=== PATIENT | female | born 2005 | race Caucasian/White ===

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

== ENCOUNTER → 2023-01-02 | Outpatient (CLI) | payer MEDICAID, SELFPAY | END | disposition home or self-care (01) | LOC: LABSPEC 11:22 | PROVIDERS: PCP Pediatrics; Referring Provider Registered Nurse; Visit Provider Registered Nurse | DX: N89.8 Other specified noninflammatory disorders of vagina (principal) | CPT/HCPCS: 87070; 87077; 87186; 87205 ==

== ENCOUNTER 2023-04-24 16:00 | Outpatient (RCR) | payer MEDICAID, SELFPAY ==
--- NOTE | 2023-01-05 07:25 | HP.PTEVAL ---
Patient's Visit Information Visit Information Visit Information: TARIK FERREIRA is a 17 year old F referred to Physical Therapy by Dr. Levon Wadsworth DO with a diagnosis of displaced R pilon fx of R tibia, DOS: 12/15/22. Date of Evaluation: 01/03/23 Physical Therapist: Selwyn Valencia DPT Visit Plan Frequency: 2x /Week Duration: 8 weeks Plan: Start with ankle ROM, initial AROM adding in DF stretching. BAPS. Pt. is NWBing until cleared by physician. 2. Once ROM improve initiate light banded strengthening (non painful), hip and core strengthening. 3. Once cleared by physician for WBing add in CKC exercises as tolerated, progressing with gait mechanics. Subjective Subjective: Pt. is here today for her initial evaluation with diagnosis of displaced R pilon fx of R tibia. Pt. reports she was jumping on a trampoline with her friend and landed funny resulting in a leg fracture. She initially had an external fixator until swelling went down then proceeded with the internal fixation. DOS: 12/15/22. Pt. arrives today with use of crutches and is NWB on her RLE. Pt. does this well. She reports having some pain, but not much currently. She has not been doing much exercises, but has been mostly elevating and resting. She is in school and is working at [employer] but is currently off work. School is mostly online. Pt. denies changes in color of her leg, but has tingling and some numbness on top of her foot. She is sleeping well with her leg elevated. Pt. has light compression on as well. pt. is hopeful to reduce her pain and get back to all recreational and work activities without limitations. Pain R ankle: Pain Intensity (Out of 10): 1 Pain Intensity Range: 0 and 4 Objective Objective: POSTURE: Pt. is NWBing on her RLE, but has good posture with use of crutches. PALPATION: Pt. has steri strips in place. good healing incision. Pt. has negative homans sign. Pt. has no signs of infection. NEURO: Pt. has fairly normal sensation, she does have some decreased sensation at the top of her foot. ROM: R knee: full motion no pain. R ankle: AROM: DF: 0 deg, PF 28deg, INV 2DEG, EVR 1deg. PROM: DF 5deg, PF 31deg, INV 4deg, EVR 4deg. MMT: LLE 5/5 throughout; RLE: ankle did not test; knee; ext 4+/5, flexion 4+/5; hip: flexion 4/5, adb 4/5, ext 4/5. GAIT: Pt. ambulates well with crutches and NWBing on her RLE. Balance/Special Test Scores Lower Extremity Functional Score: 10 Goals Goal 1:: LTG: Pt. to be I with HEP. Goal Time Frame: 6-8 Weeks Goal 2:: STG: Pt. to have increased R ankle ROM symmetrical to R side allowing for progression to WBing once cleared. Goal Time Frame: 2-4 Weeks Goal 3:: LTG: Pt. to have increased RLE strength to 5/5 throughout. Goal Time Frame: 4-6 Weeks Goal 4:: LTG: Pt. to be able to walk with normal gait pattern with use of crutches. Goal Time Frame: 4-6 Weeks Goal 5:: LTG: pt. to be able to ambulate without AD with normal gait pattern without increase in symptoms. Goal Time Frame: 6-8 Weeks Goal 6:: LTG: pt. to negotiate 1 flight of stairs with1 HR with normal recipocal pattern without pain. Goal Time Frame: 6-8 Weeks Rehabilitation Potential Physical Therapy Diagnosis: Pt. has signs and symptoms consistent with displaced R pilon fx of R tibia. Pt. has marked hypomobility, weakness, difficulty walking and increased pain. Pt. would benefit from PT to work on the above limitations progressing back to all functional mobility and work related activities without limitations. Rehabilitation Potential: Excellent Anticipated Interventions Patient/Client Instruction: Educate patient on: Condition, Plan of Care, Risk Factors and Benefits of Fitness Program For the Purpose of:: To improve decision making, To facilitate caregiver knowledge, To improve self management, To prevent re-injury and To improve ability to perform tasks related to life management Therapeutic Exercise to Include: Strength training, Power training, Balance training, Coordination, Postural training, Flexibilty training, Gait and locomotor training, Neuromotor development, Passive ROM and Active ROM For the Purpose of:: To decrease pain, To increase ROM, To improve nutrient delivery to tissue, To increase oxygenation perfusion, To improve muscle performance and motor function, To improve ability to perform ADL's, To increase tolerance to activity/condition/position, To improve performance and independence with ADL's, To decrease level of supervision to perform tasks, To improve ability of physical actions for home/community/work/leisure, To improve gait and locomotor functions, To decrease soft tissue restriction and To increase flexibility/ROM IF ES: Yes Cryotherapy (ice pack, ice massage): Yes For the Purpose of:: To decrease pain, To increase ROM, To improve nutrient delivery to tissue and To increase oxygenation perfusion Text: Thank you for the opportunity to evaluate your patient. For Medicare and Medicare HMO plans, please review the plan of care and approve it. It will need to be FAXED BACK to us at [phone] for Medicare purposes. For Medicare only, by signing this I certify the plan of care. Please let me know if there are questions or concerns regarding this plan of care. Physician Signature: Date:
--- NOTE | 2023-02-07 08:33 | HP.PTREVAL_ITS ---
Re-Evaluation Intro: Dr. Levon Wadsworth, DO, It has been my pleasure to treat TARIK FERREIRA over the last 8 visits for displaced R pilon fx of R tibia, DOS: 12/15/22. Please see the progress note below for an update on the physical therapy plan of care! Subjective Subjective: Pt. reports overall doing well. Pt. is now currently 50% WBing on her RLE. She is using crutches and her boot without much pain. She reports going back to work, but mostly sitting and is able to ice and elevate her RLE at times. No pain currently. HEP compliant. Objective Objective/Function: ROM: Pt. has improved ROM: R ankle DF 10deg, PF 41deg, INV 10deg, EVR 8deg. Pt. has tightness with ankle DF, but no pain. MMT: R ankle: DF 5-/5, PF 4+/5, EVR 4/5, INV 4/5. No pain with testing today. GAIT: Pt. has good ambulation with crutches and is doing better with tolerating WBing with CAM boot. Incisions look great, no major swelling today. Starting next week she can be 75% WBing and 100% the following week. Pt. to remain in boot with CKC exercises until follow up with physician. Cont. to work on DF ROM and ankle strengthening, RLE as able. Plan Plan Plan: Starting next week she can be 75% WBing and 100% the following week. Pt. to remain in boot with CKC exercises until follow up with physician. Cont. to work on DF ROM and ankle strengthening, RLE as able. Balance/Gait/Functional tests Balance/Special Test Scores Lower Extremity Functional Score: 28 Goals Goals Goal 1:: LTG: Pt. to be I with HEP. Goal Time Frame: 6-8 Weeks Goal Progress: Progressing Goal 2:: STG: Pt. to have increased R ankle ROM symmetrical to R side allowing for progression to WBing once cleared. Goal Time Frame: 2-4 Weeks Goal Progress: Progressing Goal 3:: LTG: Pt. to have increased RLE strength to 5/5 throughout. Goal Time Frame: 4-6 Weeks Goal Progress: Progressing Goal 4:: LTG: Pt. to be able to walk with normal gait pattern with use of crutches. Goal Time Frame: 4-6 Weeks Goal Progress: Goal Met Goal 5:: LTG: pt. to be able to ambulate without AD with normal gait pattern without increase in symptoms. Goal Time Frame: 6-8 Weeks Goal Progress: Progressing Goal 6:: LTG: pt. to negotiate 1 flight of stairs with1 HR with normal recipocal pattern without pain. Goal Time Frame: 6-8 Weeks Goal Progress: Progressing Anticipated Interventions Anticipated Interventions Patient/Client Instruction: Educate patient on: Condition, Plan of Care, Risk Factors and Benefits of Fitness Program For the Purpose of:: To improve decision making, To facilitate caregiver knowledge, To improve self management, To prevent re-injury and To improve ability to perform tasks related to life management Therapeutic Exercise to Include: Strength training, Power training, Balance training, Coordination, Postural training, Flexibilty training, Gait and locomotor training, Neuromotor development, Passive ROM and Active ROM For the Purpose of:: To decrease pain, To increase ROM, To improve nutrient delivery to tissue, To increase oxygenation perfusion, To improve muscle perf ormance and motor function, To improve ability to perform ADL's, To increase tolerance to activity/condition/position, To improve performance and independence with ADL's, To decrease level of supervision to perform tasks, To improve ability of physical actions for home/community/work/leisure, To improve gait and locomotor functions, To decrease soft tissue restriction and To increase flexibility/ROM IF ES: Yes Cryotherapy (ice pack, ice massage): Yes For the Purpose of:: To decrease pain, To increase ROM, To improve nutrient delivery to tissue and To increase oxygenation perfusion Re-Evaluation Ending Re-evaluation ending: Please do not hesitate to contact me at [phone] by phone or if you have questions or concerns regarding this new plan of care! Sincerely, Selwyn Valencia DPT
--- NOTE | 2023-03-27 16:03 | HP.PTREVAL_ITS ---
Re-Evaluation Intro: Dr. Levon Wadsworth, DO, It has been my pleasure to treat TARIK FERREIRA over the last 19 visits for displaced R pilon fx of R tibia, DOS: 12/15/22. Please see the progress note below for an update on the physical therapy plan of care! Subjective Subjective: Pt. reports having increased pain at the medial aspect of her R distal LE. Along post tib muscle belly and tendon. She reports having increased pain after slipping ~ 2 weeks ago. It did get better than has started to get worse again. Objective Objective/Function: ROM: L ankle: Pt. has decent R ankle ROM, slight decrease in DF, and EVR, rest is fairly normal. MMT: PF 5-/5, DF 5-/5, EVR 5-/5, INV 4+/5 mild increase nW. PALPATION: pt. pretty tender along R post tib muscle and tendon. Less no along medial tibia. GAIT: Pt. has an antalgic pattern noted, during push off/pre swing phase of RLE. This did improve after manual and stretching. Her symptoms seem to be more musculature in nature. I would like to progress GS stretching, manual/foam rolling to this same area. Possibly DN to same region. Once symptoms have reduced progress back to strengthening as tolerated. Plan Plan Plan: I would like to progress GS stretching, manual/foam rolling to this same area. Possibly DN to same region. Once symptoms have reduced progress back to strengthening as tolerated. Recerting for x2 week for 4 more weeks. Balance/Gait/Functional tests Balance/Special Test Scores Lower Extremity Functional Score: 23 Goals Goals Goal 1:: LTG: Pt. to be I with HEP. Goal Time Frame: 6-8 Weeks Goal Progress: Progressing Goal 2:: STG: Pt. to have increased R ankle ROM symmetrical to R side allowing for progression to WBing once cleared. Goal Time Frame: 2-4 Weeks Goal Progress: Progressing Goal 3:: LTG: Pt. to have increased RLE strength to 5/5 throughout. Goal Time Frame: 4-6 Weeks Goal Progress: Progressing Goal 4:: LTG: Pt. to be able to walk with normal gait pattern with use of crutches. Goal Time Frame: 4-6 Weeks Goal Progress: Progressing Goal 5:: LTG: pt. to be able to ambulate without AD with normal gait pattern without increase in symptoms. Goal Time Frame: 6-8 Weeks Goal Progress: Progressing Goal 6:: LTG: pt. to negotiate 1 flight of stairs with1 HR with normal recipocal pattern without pain. Goal Time Frame: 6-8 Weeks Goal Progress: Progressing Anticipated Interventions Anticipated Interventions Patient/Client Instruction: Educate patient on: Condition, Plan of Care, Risk Factors and Benefits of Fitness Program For the Purpose of:: To improve decision making, To facilitate caregiver knowledge, To improve self management, To prevent re-injury and To improve ability to perform tasks related to life management Therapeutic Exercise to Include: Strength training, Power training, Balance training, Coordination, Postural training, Flexibilty training, Gait and lo comotor training, Neuromotor development, Passive ROM and Active ROM For the Purpose of:: To decrease pain, To increase ROM, To improve nutrient delivery to tissue, To increase oxygenation perfusion, To improve muscle performance and motor function, To improve ability to perform ADL's, To increase tolerance to activity/condition/position, To improve performance and independ ence with ADL's, To decrease level of supervision to perform tasks, To improve ability of physical actions for home/community/work/leisure, To improve gait and locomotor functions, To decrease soft tissue restriction and To increase flexibility/ROM IF ES: Yes Cryotherapy (ice pack, ice massage): Yes For the Purpose of:: To decrease pain, To increase ROM, To improve nutrient delivery to tissue and To increase oxygenation perfusion Re-Evaluation Ending Re-evaluation ending: Please do not hesitate to contact me at [phone] by phone or if you have questions or concerns regarding this new plan of care! Sincerely, Selwyn Valencia DPT
== END 2023-04-24 19:00 | disposition home or self-care (01) ==
LOC: PT 16:00
PROVIDERS: PCP Pediatrics; Referring Provider Student in an Organized Health Care Education/Training Program; Visit Provider Student in an Organized Health Care Education/Training Program
DX: S82.871D Displaced pilon fracture of right tibia, subsequent encounter for closed fracture with routine healing (principal)
CPT/HCPCS: 97014; 97110; 97140; 97161; 97164; G0283

== ENCOUNTER → 2023-08-23 | Outpatient (CLI) | payer MEDICAID, SELFPAY ==
--- NOTE | 2023-08-23 13:11 | MRI_ITS ---
STUDY: MRI RIGHT ANKLE WITHOUT CONTRAST REASON FOR EXAM: Female, 17 years old. Right tibial tendon pain. Medial pain. TECHNIQUE: Standardized fat and water weighted pulse sequences were obtained in all 3 orthogonal planes. Marked metallic artifact in the distal tibia obscuring any diagnostic information above the tibiotalar joint. COMPARISON: Intraoperative digital documentation views of 12/15/2022 showing extensive plate and screw fixation of the distal tibia. FINDINGS: Extremely limited study due to metallic artifact. No diagnostic information of the distal tibia or fibula due to metallic artifact. Posterior tibialis tendinosis with tenosynovitis (axial series 4 images 15-21). Normal flexor digitorum longus tendon. Normal flexor hallucis longus tendon. Normal peroneus longus and brevis tendons. Normal tibialis anterior tendon. Normal extensor hallucis longus tendon. Normal extensor digitorum longus tendons. Normal Achilles tendon and teno-osseous insertion. Normal plantar fascia. Normal plantar calcaneal tubercles. Normal intrinsic muscles of the rearfoot. Normal distal tibiofibular syndesmotic ligamentous complex. Normal lateral ligamentous complex. Normal subtalar ligaments and sinus tarsi. Normal deltoid ligamentous complexes. Normal plantar calcaneonavicular (spring) ligament. Normal tibiotalar articulation. Normal talar dome. Normal subtalar articulations. Normal talonavicular articulation. Normal calcaneocuboid articulation. Normal navicular-cuneiform articulations. MRI/Lower Ext Joint Only (Routine) IMPRESSION: Posterior tibialis tendinosis with tenosynovitis. No other abnormality identified. Electronically Signed: Driss Vance MD at 11:24 EDT ,
== END | disposition home or self-care (01) ==
PROVIDERS: Referring Provider Student in an Organized Health Care Education/Training Program; Visit Provider Student in an Organized Health Care Education/Training Program
DX: S82.871D Displaced pilon fracture of right tibia, subsequent encounter for closed fracture with routine healing (principal)
CPT/HCPCS: 73721

== ENCOUNTER 2023-10-25 20:35 | Emergency (ER) | payer MEDICAID, SELFPAY ==
[2023-10-25] VITALS (7 sets, daily range): BP systolic 83–118; BP diastolic 55–71; PULSE 69–111; RESP 16–18; TEMP 36.6–36.7; O2SAT 98–100; BMI 17.3
--- NOTE | 2023-10-25 20:58 | ED.VIS.FEGU ---
HPI HPI - Female History of Present Illness Chief Complaint: Vag Bleeding Detail of Chief Complaint: Vaginal bleeding Informant: patient Narrative Narrative: Patient presents to the emergency department complaint of vaginal bleeding that started 2 months ago. Initially it was more like spotting. Heavier over the last several days and in the last 3 hours she has been going through more than a pad an hour. She denies feeling lightheaded or dizzy. She does describe some pelvic cramping. Patient is on Nexplanon. She does not think she is and she is never been . She called her TECHNICAL SUPPORT ASSISTANT who advised her to come to the ER and get evaluated. [facility] Medical History (Updated 10/25/23 @ 23:[address] Angel Montesinos, DO) Anxiety Uses crutches Restless legs Former smoker Leg cramps History of edema Home Medications ?Medication ?Instructions ?Recorded ?Last Taken ?Type etonogestrel 68 mg subdermal 68 mg subdermal DAILY 12/06/22 Unknown History implant (Nexplanon) sertraline 50 mg tablet 50 mg PO DAILY 10/25/23 Unknown History Allergy/AdvReac Type Severity Reaction Status Date / Time No Known Allergies Allergy Verified 10/25/23 20:37 Family History Mother Thyroid disorder Surgical History Status post ORIF of fracture of ankle (~12/15/22) H/O reduction of closed fracture (~12/07/22) S/P eye surgery S/P nasal surgery S/P tonsillectomy and adenoidectomy Social History household members: family housing: house number of children: 0 current occupational status: employed 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 [employer] Smoking Status: Current every day smoker tobacco type: cigarettes alcohol intake: never substance use type: does not use caffeine: Yes what type of physical activity do you participate in: other details: track and cheerleading seatbelt use: always do you feel safe at home: Yes additional social history: BF- Taz ROS ROS ED Review of Systems ROS Unobtainable: other Constitutional Constitutional ED: Reports lethargy; Denies chills, fever(s), sweats or weight loss Eyes Eyes: Denies blurry vision, change in vision or diplopia ENT ENT ED: Denies rhinorrhea or sore throat Cardiovascular Cardiovascular: Denies chest pain, orthopnea or racing heartbeat Respiratory/Chest Respiratory/Chest: Denies cough, dyspnea, dyspnea on exertion, orthopnea or sputum Gastrointestinal Gastrointestinal: Denies abdominal pain, diarrhea, nausea or vomiting Genitourinary Genitourinary ED: Reports vaginal bleeding; Denies dysuria, hematuria or urinary frequency Musculoskeletal Musculoskeletal: Denies arthralgias, back pain, myalgias or neck pain Integumentary Denies abscess, Abrasions or rash Neurologic Neurologic: Denies headache(s) or weakness Psychiatric Psychiatric: Denies anxiety, depression or suicidal thoughts Endocrine Endocrinology: Denies polydipsia, polyphagia or polyuria Hematologic/Lymphatic Hematologic/Lymphatic: Denies easy bleeding, easy bruising or lymphadenopathy Allergic/Immunologic Allergic/Immunologic ED: Denies mouth swelling, tongue swelling or urticaria EXAM Physical Exam Const Vital Signs: 10/25/23 20:35 10/25/23 21:04 10/25/23 21:09 Temperature 98.1 F Temperature Source Temporal Pulse Rate 94 Pulse Rate [Lying] 84 Pulse Rate [Sitting (for 1 minute prior to obtaining)] 75 Pulse Rate [Standing (for 1 minute prior to obtaining)] 111 H Respiratory Rate 16 Blood Pressure 118/71 110/66 Blood Pressure [Lying] 106/70 Blood Pressure [Sitting (for 1 minute prior to obtaining)] 103/62 Blood Pressure [Standing (for 1 minute prior to obtaining)] 83/55 L Blood Pressure Mean 86 80 Blood Pressure Mean [Lying] 82 Blood Pressure Mean [Sitting (for 1 minute prior to obtaining)] 75 Blood Pressure Mean [Standing (for 1 minute prior to obtaining)] 64 Pulse Ox 99 Oxygen Delivery Method Room Air 10/25/23 22:58 10/25/23 22:59 10/25/23 23:00 Temperature Temperature Source Pulse Rate 75 81 90 Pulse Rate [Lying] Pulse Rate [Sitting (for 1 minute prior to obtaining)] Pulse Rate [Standing (for 1 minute prior to obtaining)] Respiratory Rate 16 16 Blood Pressure 103/67 95/66 92/65 Blood Pressure [Lying] Blood Pressure [Sitting (for 1 minute prior to obtaining)] Blood Pressure [Standing (for 1 minute prior to obtaining)] Blood Pressure Mean 79 75 74 Blood Pressure Mean [Lying] Blood Pressure Mean [Sitting (for 1 minute prior to obtaining)] Blood Pressure Mean [Standing (for 1 minute prior to obtaining)] Pulse Ox 98 Oxygen Delivery Method Positive well nourished and well developed General Appearance ED: well developed and NAD HEENT Reports TM's clear and moist mucous membranes normocephalic and atraumatic; Negative for trauma or tenderness Tympanic Membrane ED: Yes TM's clear Eyes PERRL and EOMs intact bilaterally General Eye ED: Negative for pale conjunctiva or scleral icterus Neck no lymphadenopathy, supple and no JVD General: Negative for tenderness Chest Wall inspection of chest normal and palpation of chest normal Chest: Negative for tenderness Resp normal respiratory effort and clear to auscultation bilaterally Effort and Inspection: Negative for respiratory distress or pain with movement Auscultation: Negative for rhonchi, wheezes or diminished lung sounds Cardio regular rate, regular rhythm, S1 normal heart sound, S2 normal heart sound and no murmurs Peripheral Pulses: pulses 2+ throughout GI normal to inspection, nondistended, normoactive bowel sounds, soft to palpation, non-distended and no masses GI Narrative: Mild diffuse suprapubic tenderness on palpation. There is no rebound, rigidity, or pineal signs. No mass palpated. Speculum Exam - Vagina: vaginal bleeding Back/Spine no CVA tenderness and no thoracic nor lumbar tenderness Extremity normal to inspection General Extremety ED: Negative for edema General Extremity: Negative for edema Neuro oriented x3, CN's II-XII intact bilaterally, no sensory deficits noted and gait normal Sensorium / Orientation: awake, alert, oriented to person, oriented to place and oriented to time Motor Exam: strength 5/5 throughout and strength abnormal Psych mental status grossly normal Skin no rashes or lesions noted and no wounds MDM MDM MDM Narrative Medical decision making narrative: Patient presents with vaginal bleeding x 2 months. More heavy over the last 3 hours. IV line established. Type and screen ordered. CBC with differential obtained showed a white count of 10.5 with hemoglobin 14.4 platelet count of 252. hCG was negative. Orthostatic vital signs were performed and she did drop her pressure to 80 systolic when standing and she did feel lightheaded. She received a liter normal saline fluid bolus. I will order a second liter. I did do a pelvic exam and she had dried blood within the vaginal vault but no active bleeding. Case discussed with TECHNICAL SUPPORT ASSISTANT on-call Dr. Dover who recommended patient call their office to arrange close follow-up. Patient did receive a second liter of fluid and repeat orthostatics are currently negative. She is asymptomatic and looks well. Will discharge to home. Lab Data Attestation: I reviewed the patient's lab results. Labs: Laboratory Results - last 24 hr 10/25/23 10/25/23 20:55 21:55 WBC 10.5 RBC 4.75 Hgb 14.4 Hct 42.5 MCV 89.5 MCH 30.3 MCHC 33.9 RDW Std Deviation 37.7 RDW Coeff of Ursula 11.7 Plt Count 252 MPV 11.0 Immature Gran % (Auto) 0.400 Neut % (Auto) 72.6 H Lymph % (Auto) 20.1 [place] % (Auto) 5.8 Eos % (Auto) 0.5 Baso % (Auto) 0.6 Absolute Neuts (auto) 7.6 Absolute Lymphs (auto) 2.10 Nucleated RBC % 0 Serum , Qual NEGATIVE Urine Color Yellow Urine Clarity Clear Urine pH 7.0 Ur Specific Barnard 1.010 Urine Protein Negative Urine Glucose (UA) Normal Urine Ketones Negative Urine Occult Blood 250 H Urine Nitrite Negative Urine Bilirubin Negative Urine Urobilinogen Normal Ur Leukocyte Esterase Negative Urine RBC 0-5 SEEN Urine WBC 0 SEEN Ur Squamous Epith Cells 0 SEEN Urine Bacteria 0 SEEN Urine Mucus 0 SEEN Blood Type O POSITIVE Antibody Screen NEGATIVE Discharge Plan Triage Chief Complaint: Vag Bleeding ED Provider: Angel Montesinos Dx/Rx/DC Orders Clinical Impression: DUB (dysfunctional uterine bleeding) Instructions: ED Dysfunctional Uterine Bleeding Prescriptions: No Action Nexplanon 68 mg implant 68 mg subdermal DAILY sertraline 50 mg tablet 50 mg PO DAILY Primary Care Provider: Curry Acevedo Referrals: Curry Acevedo MD [Primary Care Provider] - Charla Abraham DO [Med Staff - Active Staff] - 1-2 Days if not improving Print Language: Luxembourgish Disposition Disposition: Home, Self Care
[2023-10-25] MEDS: 0.9% Normal Saline (1000mL) 1,000 ML 999 ML IV ×2 (21:03→22:00)
[2023-10-25 21:10] LABS: Absolute Neutrophil Count 7.6 X10^3/uL (2.0-7.7); Basophil# 0.06 X10^3/uL; Basophil% 0.6 % (0-1); Eosinophil# 0.05 X10^3/uL; Eosinophils% 0.5 % (0-5); Hematocrit 42.5 % (37-47); Hemoglobin 14.4 g/dL (12.0-15.0); Lymphocyte % 20.1 % (19-41); Mean Corp Hgb Conc 33.9 g/dL (32-36); Mean Corpuscular Hgb 30.3 pg (27.0-32.0); Mean Corpuscular Volume 89.5 fL (81-99); Monocyte# 0.61 X10^3/uL; Monocyte% 5.8 % (0-10); NRBC Flagged by Analyzer 0 % (0-5); Neutrophil % 72.6 % (47-70); Platelet Count 252 K/mm3 (150-450); RBC Distribution Width CV 11.7 % (11.6-14.6); RBC Distribution Width SD 37.7 fl (35.1-43.9); Red Blood Count 4.75 M/mm3 (4.2-5.4); White Blood Count 10.5 K/mm3 (4.4-11.0)
[2023-10-25 21:17] LABS: Internal QC Validated? YES +Cl - CLEAR BKGD; Pregnancy, Serum, hCG Quali. NEGATIVE Negative
[2023-10-25 22:09] LABS: Bacteria 0 SEEN /hpf (None Seen); Mucous, Urine 0 SEEN /hpf (<or=2+); White Blood Cells 0 SEEN /hpf (0-5)
[2023-10-25 22:17] LABS: Color, Urine Yellow (Yellow); Glucose, Dipstick Normal (Normal); Ketone-Dipstick Negative (Negative); Leukocyte Esterase-Dipstick Negative /ul (Negative); Nitrite-Dipstick Negative (Negative); Occult Blood-Urine 250 /ul (Negative); Protein-Dipstick Negative (Negative); Urine Bilirubin Dipstick Negative (Negative); Urine Clarity Clear (Clear); Urine Urobilinogen Normal (Normal)
[2023-10-25 22:28] LABS: Red Blood Cells-Urine 0-5 SEEN /hpf (0-5); Squamous Epithelial Cells - UA 0 SEEN /hpf (5-10)
== END 2023-10-25 23:16 | disposition home or self-care (01) ==
PROVIDERS: Emergency Provider Emergency Medicine; PCP Pediatrics; Visit Provider Emergency Medicine
DX: N93.8 Other specified abnormal uterine and vaginal bleeding (principal); F17.210 Nicotine dependence, cigarettes, uncomplicated
CPT/HCPCS: 81001; 84703; 85025; 86850; 86900; 86901; 96360; 96361; 99283; J7030; A4216

== ENCOUNTER → 2023-10-26 | Outpatient (CLI) | payer MEDICAID, SELFPAY ==
[2023-10-26 15:19] LABS: Absolute Lymphocyte Count 1.45 X10^3/uL (0.83-4.51); Absolute Neutrophil Count 5.4 X10^3/uL (2.0-7.7); Basophil# 0.06 X10^3/uL; Basophil% 0.8 % (0-1); Eosinophil# 0.09 X10^3/uL; Eosinophils% 1.2 % (0-5); Hematocrit 39.8 % (37-47); Hemoglobin 13.3 g/dL (12.0-15.0); Lymphocyte # 1.45 X10^3/ul (0.83-4.51); Lymphocyte % 19.6 % (19-41); Mean Corp Hgb Conc 33.4 g/dL (32-36); Mean Corpuscular Hgb 30.2 pg (27.0-32.0); Mean Corpuscular Volume 90.5 fL (81-99); Mean Platelet Vol. 11.1 fl (6.2-12.0); Monocyte# 0.35 X10^3/uL; Monocyte% 4.7 % (0-10); NRBC Flagged by Analyzer 0 % (0-5); Neutrophil # 5.41 X10^3/uL (2.7-7.7); Neutrophil % 73.4 % (47-70); Platelet Count 211 K/mm3 (150-450); RBC Distribution Width CV 11.8 % (11.6-14.6); White Blood Count 7.4 K/mm3 (4.4-11.0)
[2023-10-26 16:22] LABS: Thyroid Stim Hormone (TSH) 1.31 uIU/mL (0.358-3.74)
== END | disposition home or self-care (01) ==
LOC: LAB 14:45
PROVIDERS: PCP Pediatrics; Referring Provider Obstetrics & Gynecology; Visit Provider Obstetrics & Gynecology
DX: N93.9 Abnormal uterine and vaginal bleeding, unspecified (principal)
CPT/HCPCS: 36415; 84443; 85025

== ENCOUNTER 2024-03-15 13:38 | Emergency (ER) | payer OTHER, MEDICAID, SELFPAY ==
[2024-03-15 13:41] VITALS: BP 114/68; PULSE 88; RESP 18; TEMP 36.1; O2SAT 100; BMI 18.1
--- NOTE | 2024-03-15 14:13 | EDS_ITS ---
HPI History of Present Illness HPI Narrative: Patient presents with right ankle injury that occurred today. Patient states she slipped on the ice cube and twisted her ankle. Patient has a history of prior ankle fracture with ORIF. Patient states he felt like the screws were going to pop out of her ankle. Patient describes her pain as sharp and aching. Patient denies any paresthesias or weakness. Patient denies any head injury or loss of consciousness. Patient denies any other injuries. Chief Complaint: Lower Extremity Injury Informant: patient Occured/Mechanism Comment: Slipped on ice and twisted right ankle Onset/Context/Timing Onset: Today Context: Sudden Onset Timing: Continuous Quality of Pain: Sharp and Aching Location: Right ankle Worsened by: Movement Relieved by: Nothing Associated Symptoms Associated Symptoms: Negative for Parasthesia, Weakness or Loss of Funtion [facility] Medical History Anxiety Uses crutches Restless legs Former smoker Leg cramps History of edema Home Medications ?Medication ?Instructions ?Recorded ?Last Taken ?Type etonogestrel 68 mg subdermal 68 mg subdermal DAILY 12/06/22 Unknown History implant (Nexplanon) sertraline 50 mg tablet 50 mg PO DAILY 10/25/23 Unknown History Allergy/AdvReac Type Severity Reaction Status Date / Time No Known Allergies Allergy Verified 03/15/24 13:38 Family History Mother Thyroid disorder Surgical History Status post ORIF of fracture of ankle (~12/15/22) H/O reduction of closed fracture (~12/07/22) S/P eye surgery S/P nasal surgery S/P tonsillectomy and adenoidectomy Social History household members: family housing: house number of children: 0 current occupational status: employed 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 [employer] Smoking Status: Current every day smoker tobacco type: cigarettes alcohol intake: never substance use type: does not use caffeine: Yes what type of physical activity do you participate in: other details: track and cheerleading seatbelt use: always do you feel safe at home: Yes additional social history: BF- Taz ROS ROS ED Constitutional Constitutional ED: Denies chills or fever(s) Eyes Eyes: Denies blurry vision or change in vision ENT ENT ED: Denies rhinorrhea or sore throat Cardiovascular Cardiovascular: Denies chest pain or palpitations Respiratory/Chest Respiratory/Chest: Denies cough or dyspnea Gastrointestinal Gastrointestinal: Denies nausea or vomiting Genitourinary Genitourinary ED: Denies dysuria or hematuria Musculoskeletal Musculoskeletal: Reports back pain; Denies neck pain Integumentary Denies abscess or rash Neurologic Neurologic: Denies headache(s) or weakness Allergic/Immunologic Allergic/Immunologic ED: Denies mouth swelling or urticaria EXAM Physical Exam Const Vital Signs: 03/15/24 13:41 Temperature 96.9 F L Temperature Source Temporal Pulse Rate 88 Respiratory Rate 18 Blood Pressure 114/68 Blood Pressure Mean 83 Pulse Ox 100 Oxygen Delivery Method Room Air Positive well nourished and well developed General Appearance ED: well developed and NAD HEENT Reports moist mucous membranes Neck full ROM and supple Extremity Extremity Narrative: There is tenderness to palpation over the medial and lateral malleoli. There is no obvious deformity noted. There is some mild edema. Range of motion was limited in all motions of the right ankle secondary to pain. There is no tenderness over the fifth metatarsal. There is no tenderness over the proximal fibula. Neuro oriented x3, CN's II-XII intact bilaterally, moves all extremities and no sensory deficits noted Sensorium / Orientation: alert Motor Exam: strength 5/5 throughout Psych mental status grossly normal MDM MDM MDM Narrative Medical decision making narrative: Differential diagnosis includes fracture, contusion, and sprain. X-rays of the right ankle will be obtained to assess for fracture and contusion. Radiography Diagnostic Testing: X-rays of the right ankle were obtained. There are 3 views. On my independent interpretation, there is no acute fracture or dislocation. There is no widening of the ankle mortise. There is no displacement or fracture of the hardware. Radiologist also interpreted the x-rays and agrees. Treatment and Re-Evaluation Narrative: Patient was advised of her findings. Patient was instructed to ice and elevate the right ankle. 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 Patient was instructed to take Tylenol or ibuprofen as needed for pain. Patient was instructed return if worse in any way. Patient understood and was agreeable with the plan. All questions were answered. Discharge Plan Triage Chief Complaint: Lower Extremity Injury ED Provider: Carmelo Castillo Dx/Rx/DC Orders Clinical Impression: Right ankle sprain, Fall Instructions: ED Ankle Sprain (Adult) Prescriptions: No Action Nexplanon 68 mg implant 68 mg subdermal DAILY sertraline 50 mg tablet 50 mg PO DAILY Primary Care Provider: Curry Acevedo Referrals: Curry Acevedo MD [Primary Care Provider] - 5-7 Days Print Language: Maori Disposition Disposition: Home, Self Care
--- NOTE | 2024-03-15 15:12 | RAD_ITS ---
STUDY: X-RAY - RIGHT ANKLE REASON FOR EXAM: Female, 18 years old. Injury/Pain TECHNIQUE: 3 view(s) of the ankle. COMPARISON: 12/15/2022. FINDINGS: No acute abnormality. Satisfactory appearance of compression plate and screws across the medial and lateral surfaces of the distal tibia. No acute fracture lines are seen. No dislocations. Normal visualized fibula. Normal visualized talus and calcaneus. The visualized subtalar, talonavicular, calcaneocuboid and tarsal articulations are normal. The soft tissue structures are unremarkable. RAD/Ankle min 3 Views IMPRESSION: No acute fractures or dislocations. Electronically Signed: Jaguar Dacosta MD at 15:40 EDT ,
[2024-03-15 16:50] VITALS: BP 110/66; PULSE 84; RESP 16; TEMP 36.5; O2SAT 99
== END 2024-03-15 16:51 | disposition home or self-care (01) ==
PROVIDERS: Emergency Provider Emergency Medicine; PCP Pediatrics; Visit Provider Emergency Medicine
DX: S93.401A Sprain of unspecified ligament of right ankle, initial encounter (principal); F17.210 Nicotine dependence, cigarettes, uncomplicated; W18.49XA Other slipping, tripping and stumbling without falling, initial encounter; F41.9 Anxiety disorder, unspecified; Z79.899 Other long term (current) drug therapy
CPT/HCPCS: 73610; 99282

== ENCOUNTER 2025-04-09 20:23 | Emergency (ER) | payer SELFPAY ==
[2025-04-09 20:24] VITALS: BP 125/78; PULSE 95; RESP 16; TEMP 36.6; O2SAT 100; BMI 19.1
--- OUTSIDE RECORDS SUMMARY | 2025-04-09 20:38 | XMS RPT_ITS | CCD ---
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 distress. Appearance: She is not diaphoretic. HENT: Head: Normocephalic. Jaw: No trismus, tenderness, swelling or pain on movement. Mouth/Throat: Mouth: Mucous membranes are moist. Pharynx: Oropharynx is clear. Uvula midline. No pharyngeal swelling, oropharyngeal exudate, posterior oropharyngeal erythema or uvula swelling. Eyes: Conjunctiva/sclera: Conjunctivae normal. Pupils: Pupils are equal, round, and reactive to light. Cardiovascular: Rate and Rhythm: Normal rate and regular rhythm. Heart sounds: Normal heart sounds. Pulmonary: Effort: Pulmonary effort is normal. No tachypnea, accessory muscle usage or respiratory distress. Breath sounds: Normal breath sounds. No stridor. No wheezing, rhonchi or rales. Abdominal: General: There is no distension. Palpations: Abdomen is soft. Tenderness: There is no abdominal tenderness. There is no guarding or rebound. Musculoskeletal: Cervical back: Normal range of motion and neck supple. No edema, erythema, rigidity or tenderness. No pain with movement. Normal range of motion. Lymphadenopathy: Cervical: No cervical adenopathy. Skin: General: Skin is warm and dry. Comments: Oval salmon-colored lesion noted over thoracic area. Sporadic macular papular rash is noted on trunk a few rash noted on legs to highlighted area. Rash is blanching. Spares mucosal membrane. No adenopathy. Neurological: Mental Status: She is alert and oriented to person, place, and time. ASSESSMENT/PLAN: 1. Rash - ICD9: 782.1, ICD10: R21 Diagnosis rash. Suspicious of inverse pityriasis rosea. Patient was educated on supportive therapies. Patient will follow up with primary care provider as needed. Patient was instructed to immediately proceed to emergency room for any new, worsening, or symptoms lasting longer than anticipated. The patient's clinical p (more content not included)... Normal [facility] CNOVon 03-25-2024 CNOV Office Visit (PEDSWS) ---- SUGAR FERREIRA ([id number]) 1 F Date Time Provider Department 03/25/24 1:00 PM CURRY WORLEY PEDSWS During your visit today, we recorded the following information about you: Temperature Pulse Respiration Blood pressure 98 degrees 72/minute 20/minute 98/60 Weight Last Period 50.2 kg 02/19/24 Curry Worley MD 03/25/2024 2:32 PM Signed PEDIATRIC FOLLOW UP VISIT Sugar Fabrizio Ferreira is a 18 year old female who presents with anxiety, insomnia, and anhedonia for follow up visit accompanied by her self. Currently taking Sertraline 50 mg since 10/19. The medication is helping dramatically with apettitie, nausea, sleep, anxiety, restlessness. stopped meds about a month ago. (ran out) History was obtained from: patient Current symptoms: low energy, loss of interest, and anxiety Sleep continues to be a concern even when taking medication. getting 3-4 hours of sleep a night. Was waking at night as well ( but better on meds) tried melatonin-no help warm milk. antihistamines, no help no ETOH, no THC has limited screen time white noise mind has 17 tabs open- music, what if's counseling: looking for counselor. having trouble meeting schedule. (only has 1 day off a week from work or school) Severity of Symptoms: moderate Context: home, school, and work SH: living with Boyfriend in [place] now PAST MEDICAL HISTORY Diagnosis Date Allergic rhinitis Nasal bones, closed fracture PMH - PAST MEDICAL HISTORY OF 01/26/09 normal color vision ROS for medication side effects: Abdominal pain: no Appetite problems: no Drowsiness: no Sleep problems: no Headaches: no Depression: no Suicidal ideation: no Agitation: no Yvette: no Tremors: no Weight change: no ADDITIONAL CONCERNS: Right ankle injury- Surgical Services Asst is recommencing repeat surgery PHYSICAL EXAM: BP 98/60 Pulse 72 Temp 36.7 ?C (98 ?F) (Temporal Artery) Resp 20 Wt 50.2 kg (110 lb 10.7 oz) LMP 02/19/2024 (Approximate) BMI 19.30 kg/m? Blood pressure %shantel are not available for patients who are 18 years or older. General: Well developed, No acute distress, anxious and fidgety Neck: supple and no adenopathy Lungs: clear to auscultation bilaterally, good air exchange, no retractions Heart: Normal rate, regular rhythm, no murmur Abdomen: Soft, nontender, nondistended, no palpable organomegaly or masses, normal bowel sounds Skin: Normal color, texture and turgor. No rashes. ASSESSMENT AND PLAN: Encounter Diagnosis ICD-10-CM 1. MARIA DE JESUS (generalized anxiety disorder) F41.1 18 year old female with anxiety with some depressive symptoms without optimization of symptoms but improvement on medication that she was taking and without significant medication side effects. Based on PHQ-9 Score: 14 and interview, presentation is consistent with possible depression: -Continue current medications -Referred to psychology/behavior al health provider. MARIA DE JESUS-7: 18 - Continue current medication-restart Zoloft 50 mg daily. - Psychology referral for depression and anxiety I will add clonidine 0.1 mg as needed for sleep at nighttime follow up 1 month Once stabilized I did talk about transition to adult primary care MD Curtis Crews Adam P, MD 03/25/2024 1:47 PM Signed Pediatric Behavioral Health Providers - [facility] This list does not represent endorsement of any practice by [facility] Crisis hotline [phone] [place] [phone] [place] [phone] [place] [phone] [place] [phone] [place] [phone] [email or web address] Debbie Zao [place] [phone] [place] [phone] [place] [phone] https://Medical Cannabis Payment Solutionszaocommu Quantified Communicationsypartners.org/ [employer] [address] [facility] [phone] https://[employer] Media/ One [employer]y [place] [phone] [place] [phone] [email or web address]/ [facility] [address] [place] [phone] [email or web address] [facility] Multiple locations [phone] https://www.[email or web address] hospitala [email or web address]/ [facility] [place] [phone] [place] [phone] [place] [phone] [place] [phone] [email or web address] / [email or web address] [address] [facility] [phone] [place] [address] [email or web address] [facility] [place] [address] Elizabet Rodriguez, [place] [phone] [place] [address] Stephany Rodriguez, [place] [phone] Please contact your insurance company for covered behavioral health services and providers. You may also locate mental health providers in your area by using these websites: [email or web address]://www.psychol Practice [email or web address]/us/the rapists/ https://findtreatme nt.gov/ https://effectivech i (more content not included)... Normal [facility] CNOVon 10-12-2023 CNOV Office Visit (PEDSWS) ---- SUGAR FERREIRA ([id number]) 1 F Date Time Provider Department 10/12/23 3:00 PM CURRY WORLEY PEDSWS During your visit today, we recorded the following information about you: Temperature Pulse Respiration Blood pressure 99.2 degrees 88/minute 20/minute 100/60 Weight Height 48.9 kg 1.613 m Curry Worley MD 10/12/2023 5:15 PM Signed PEDIATRIC INITIAL VISIT HISTORY OF PRESENT ILLNESS: Sugar is a 17 year old female presenting with concerns regarding depressed mood and anxiety Developed sx since having leg surgery Last November- Broke tibia and needed internal fixation. Depression set in with inactivity History was obtained from: patient Is the patient currently in treatment? No. Future appointment scheduled: No- looking for a therapist. Recent changes or stressors at home or school? Yes She has felt this way for the past 10 months with depression. Anxiety may have been prior but worsened last 10 month She was taking Zoloft for anxiety in 2020 PSYCHIATRIC REVIEW OF SYMPTOMS: Depression: Increased irritability Sad mood or feeling empty Functionally impairing anhedonia appetite with mood changes Changes to sleeping pattern Excessive and inappropriate guilt Lowering of self esteem or self efficacy Diminished energy and impairing fatigue Worsening of the ability to concentrate or is increasingly indecisive Suicidal ideation/intent: None Increase in crying episodes Generalized Anxiety: Excessive worry Difficulty controlling worry Restless and fidgety due to anxiety Fatigued due to stress Trouble concentrating due to recurrent anxiety driven thoughts Muscle tension secondary to stress Sleep disturbance secondary to anxiety Separation Anxiety: Distress when from home or parents Worry about losing or harm befalling parents Trauma induced anxiety: Older brother passes away 2018- does not feel she processed it , younger brother had a car accident Panic Disorder: Endorses the following panic attack symptoms at work: tachycardia, palpitations, sweating , trembling, shaking, nausea and vomiting, dizzy/faint, and avoidant behavior Having somatic symptoms, Blurry vision, dizziness SLEEP: -increased sleeping SOCIAL HISTORY: Patient lives with boyfriend. 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 Yes, anxiety -Has the patient received prior out patient mental care? Yes, -Previous psychiatric medication trials: Yes, prozac not a good fit, zoloft was helpful last in 2019 -Has there been a history of significant or chronic self injury? No -Have there been any previous suicide attempts? Patient denies previous suicide attempts PERTINENT FAMILY HISTORY: FAMILY HISTORY Problem Relation Age of Onset Diabetes Maternal Grandmother maternal cousin- type I other (arrthymia) Maternal Grandmother 55 stents (smoker) Anxiety: Yes, , brother, dad, mom (not dx) Depression: Yes, Dad Schizophrenia: No ADD/ADHD: No ADDITIONAL CONCERNS: None MEDICAL HISTORY: PAST MEDICAL HISTORY Diagnosis Date Allergic rhinitis Nasal bones, closed fracture PMH - PAST MEDICAL HISTORY OF 01/26/09 normal color vision OBJECTIVE PHYSICAL EXAM: BP 100/60 Pulse 88 Temp 37.3 ?C (99.2 ?F) (Temporal Artery) Resp 20 Ht 161.3 cm (5' 3.5") Wt 48.9 kg (107 lb 11.2 oz) LMP 05/03/2019 BMI 18.78 kg/m? Blood pressure %shantel are not available for patients who are 18 years or older. General: Well developed, No acute distress Appearance: well dressed well groomed Behavior: agitated Speech: fluent and coherent Affect: anxious Neck: supple and no adenopathy Lungs: clear to auscultation bilaterally, good air exchange, no retractions Heart: Normal rate, regular rhythm, no murmur Abdomen: Soft, nontender, nondistended, no palpable organomegaly or masses, normal bowel sounds Skin: Normal color, texture and turgor. No rashes. Neuro: normal strength and tone, no gross motor deficits ASSESSMENT AND PLAN: Encounter Diagnosis ICD-10-CM 1. MARIA DE JESUS (generalized anxiety disorder) F41.1 2. Adjustment disorder with depressed mood F43.21 Based on PHQ-A Score: 17 (recommended cut off score is 11) and interview, presentation is consistent with diagnosis of depression: -Start pharmacotherapy as outlined -Referred to psychology/behavior al health provider -I gave a list of local resources for her to reach out to. . Based on MARIA DE JESUS-7 Score: 20 and interview, presentation is consistent with anxiety: -Plan as above . - Reviewed risks and benefits of medcations including black box warning - Patient to call if experiencing undesirable side eff (more content not included)... Normal [facility] SUGAR FERREIRA ([id number]) 1 F Date Time Provider Department 06/18/23 ROBERTO PALOMINO [facility] During your visit today, we recorded the following information about you: Roberto Palomino, SERA 06/18/2023 8:13 AM Signed Negative for COVID and flu Francy Loaiza LPN 06/18/2023 9:18 AM Signed Left message for patient to return call. MARLIN Fry Brandy 06/18/2023 2:25 PM Signed PATIENT CALLED BACK AND WAS RELAYED THE BELOW INFORMATION AND STATED UNDERSTANDING Chalo Gonzalez Allergies As of Date: 06/18/2023 Noted Allergy Reaction BEES 03/10/2008 12 - Shortness of Breath Comments: Immunotherapy x 3 years-- Dr. Kush Rivera (no allergy now) CATS 03/18/2008 9 - Itching DOGS 03/18/2008 9 - Itching DUST MITES 03/18/2008 SEASONAL ALLERGIES 05/19/2014 3 - Cough Comments: nasal congestion and rash at times from trees and grass Date Reviewed: 06/17/2023 Reviewed by: Simone Fabian APRN.CNP - Fully Assessed Reason for Visit: Results [95] Prescriptions as of 06/18/2023 - ondansetron orally disintegrating (ZOFRAN ODT) 4 mg disintegrating tablet Take 1 tablet by mouth every 8 hours as needed for nausea/vomiting. - COVID-19 antigen test ([facility] COVID-19 RAPID AT-HOME) kit 1 Each as directed. - albuterol HFA (PROVENTIL HFA, VENTOLIN HFA) 90 mcg/actuation inhaler INHALE 2 PUFFS BY MOUTH EVERY 6 HOURS NEEDED DIRECTED - triamcinolone acetonide (NASACORT) 55 mcg nasal inhaler Use 1 spray each nostril twice daily. - cetirizine (ZYRTEC) 10 mg tablet TAKE 1 TABLET BY MOUTH EVERY DAY - hydrocortisone 2.5 % ointment Apply 1 application to affected area twice daily. Use for only two days - etonogestrel (NEXPLANON) subdermal implant 68 mg 68 mg by SUBDERMAL route. Problem List As Of Date 06/18/2023 Noted Resolved Acute low back pain without sciatica [M54.50] 07/22/2016 Encounter Status:Closed by CHALO GILMAN on 06/18/23 [facility] CNOVon 06-17-2023 CNOV Office Visit (UCWSTR) ---- SUGAR FERREIRA ([id number]) 1 F Date Time Provider Department 06/17/23 12:15 PM SIMONE FABIAN During your visit today, we recorded the following information about you: Temperature Pulse Respiration Blood pressure 99.3 degrees 118/minute 16/minute 104/72 Weight 48.2 kg Simone Fabian APRN.CNP 06/17/2023 12:44 PM Signed Subjective HPI Patient presents to urgent care with chief complaint of fever and cough. Duration of symptoms 18 hrs. Associated symptoms with today's chief complaint are on and off headache, vomiting, muscle aches, fatigue, nonproductive cough, and fever. Patient stated symptoms started abruptly. Patient states they have used zlnv-yes-sjpmmuu medication with some success. Patient states significant other had similar signs and symptoms. Patient denies any pain at this time. Patient denies any visual changes, visual disturbance, shortness of breath, rash, exercise intolerance, pleuritic pain, productive cough, abdominal pain, nausea, vomiting, chest pain, or change in bowel or bladder habits. Denies chance of . Is not breast-feeding. Past medical history prescription medications allergies reviewed. .Patient presents with: Flu Like Symptoms: X 18 hr PAST MEDICAL HISTORY Diagnosis Date Allergic rhinitis Nasal bones, closed fracture PMH - PAST MEDICAL HISTORY OF 01/26/09 normal color vision PAST SURGICAL HISTORY Procedure Laterality Date REPAIR OF NOSE FRACTURE 11/2015 SEPTOPLASTY 11/05/2020 TONSILLECTOMY AND ADENOIDECTOMY ALLERGIES Bees, Cats, Dogs, Dust Mites, and Seasonal Allergies MEDICATIONS etonogestrel (NEXPLANON) subdermal implant 68 mg 68 mg by SUBDERMAL route. COVID-19 antigen test ([facility]yo COVID-19 RAPID AT-HOME) kit 1 Each as directed. (Patient not taking: Reported on 09/26/2022) albuterol HFA (PROVENTIL HFA, VENTOLIN HFA) 90 mcg/actuation inhaler INHALE 2 PUFFS BY MOUTH EVERY 6 HOURS NEEDED DIRECTED (Patient not taking: Reported on 04/26/2022) triamcinolone acetonide (NASACORT) 55 mcg nasal inhaler Use 1 spray each nostril twice daily. (Patient not taking: Reported on 01/09/2022) cetirizine (ZYRTEC) 10 mg tablet TAKE 1 TABLET BY MOUTH EVERY DAY (Patient not taking: Reported on 06/22/2022) hydrocortisone 2.5 % ointment Apply 1 application to affected area twice daily. Use for only two days (Patient not taking: Reported on 09/26/2022) FAMILY HISTORY Problem Relation Age of Onset Diabetes Maternal Grandmother maternal cousin- type I other (arrthymia) Maternal Grandmother 55 stents (smoker) Social History Tobacco Use Smoking status: Never Passive exposure: Yes Smokeless tobacco: Never Tobacco comments: g-parents and mom smoke outside, paternal g-parents and dad smoke inside Vaping Use Vaping Use: Never used Substance Use Topics Alcohol use: No Drug use: No BP 104/72 Pulse 118 Temp 37.4 ?C (99.3 ?F) (Left Tympanic) Resp 16 Wt 48.2 kg (106 lb 3.2 oz) LMP 05/03/2019 SpO2 98% Hr 101 Review of Systems Constitutional: Positive for chills, fever and malaise/fatigue. HENT: Positive for congestion and sore throat. Negative for ear discharge, ear pain and sinus pain. Eyes: Negative for blurred vision, pain, discharge and redness. Respiratory: Positive for cough. Negative for hemoptysis, sputum production, shortness of breath, wheezing and stridor. Cardiovascular: Negative for chest pain. Gastrointestinal: Positive for abdominal pain, nausea and vomiting. Negative for diarrhea. Musculoskeletal: Positive for myalgias. Skin: Negative for itching and rash. Neurological: Positive for headaches. Negative for dizziness. Objective Physical Exam Constitutional: General: She is not in acute distress. Appearance: She is not diaphoretic. HENT: Head: Normocephalic. Jaw: No trismus, tenderness, swelling or pain on movement. Nose: Congestion present. Mouth/Throat: Mouth: Mucous membranes are moist. Pharynx: Oropharynx is clear. Uvula midline. No pharyngeal swelling, oropharyngeal exudate, posterior oropharyngeal erythema or uvula swelling. Eyes: Conjunctiva/sclera: Conjunctivae normal. Pupils: Pupils are equal, round, and reactive to light. Cardiovascular: Rate and Rhythm: Regular rhythm. Tachycardia present. Heart sounds: Normal heart sounds. Pulmonary: Effort: Pulmonary effort is normal. No tachypnea, accessory muscle usage or respiratory distress. Breath sounds: Normal breath sounds. No stridor. No wheezing, rhonchi or rales. Abdominal: General: There is no distension. Palpations: Abdomen is soft. Tenderness: There is no abdominal tenderness. There is no guarding or rebound. Musculoskeletal: Cervical back: Normal range of motion and neck supple. No edema, erythema, rigidity or tenderness. No pain with movement. Normal range of motion. Ly (more content not included)... Normal [facility] FLUABV + SARS-CoV-2 Pnl Resp LON+prbon 06-17-2023 Influenza virus A and B RNA and SARS-CoV-2 (COVID-19) N gene panel LON+probe (Resp) COVID 19 RESULT: Not detected The method used is RT-PCR or an equivalent NAAT method. Reference Range (the expected result in uninfected individuals): Not detected INFLUENZA A PCR: Not detected INFLUENZA B PCR: Not detected Normal [facility] Comment on above: Performed By: #### [id number] #### [facility] CLIA [id number] [address] [place] [address] [place] Gram stain for investigation of transfusion reactionOrdered By: Karley Hi on 01-02-2023 Microscopic observation Gram stain Nom (Unsp spec) [facility] No Panel Informationon 01-02 POC Bacterial Vaginitis (Rapid) Negative [facility] Thin prep Papanicolaou smear with manual screeningOrdered By: Karley Hi on 01-02-2023 Genital Culture Presumptive C albicans [facility] Genital Culture Streptococcus agalactiae (B) [facility] Laboratory - Chemistry and C hemistry - challengeOrdered By: Jeremy Kirby on 12-15-2022 HCG ( test) Ql (U) Negative [facility] Comment on above: Very dilute urine sp ecimens, as indicated by a low specificgravity, may not contain novelties sales representative levels of hCG. If is still suspected, a first morning urinespecimen should be collected 48 hours later and tested. Laboratory - Chemistry and C hemistry - challengeOrdered By: Jose David Pavon on 12-07-2022 HCG ( test) Ql (U) Negative [facility] Comment on above: Very dilute urine sp ecimens, as indicated by a low specificgravity, may not contain novelties sales representative levels of hCG. If is still suspected, a first morning urinespecimen should be collected 48 hours later and tested. XR FOOT GENERAL 3V AP/LAT/OB L BILATERALon 09-26-2022 [facility] Basophil percentageOrdered B y: Karley Hi on 08-25-2022 C. trachomatis DNA LON+probe Ql (Unsp spec) Negative Negative [facility] Neisseria gonorrhoeae detect ion by PCROrdered By: Karley Hi on 08-25-2022 N. gonorrhoeae DNA LON+probe Ql (Cervical mucus) Negative Negative [facility] STREP A MOLECULAR (POC)on Procedural Control Valid [facility] Strep A (POCT) Negative Negative [facility] STREP A MOLECULAR (POC)on Procedural Control Valid [facility] Strep A (POCT) Negative Negative [facility] LABORATORYOrdered By: Brianna Coulter on 03-08-2021 Adenovirus DNA LON+non-probe Ql (Nph) Not Detected *NA* (03/08/21 3:05 AM) Invalid Interpretation Code Not Detected AH Auto Viro/Sero SS ADMITTED TO INTENSIVE CARE UNIT FOR CONDITION OF INTEREST:FIND:PT:^PAT IENT:ORD: No (03/08/21 3:05 AM) Invalid Interpretation Code AH Auto Viro/Sero SS B. pertussis toxin promoter region LON+non-probe Ql (Nph) Not Detected *NA* (03/08/21 3:05 AM) Invalid Interpretation Code Not Detected AH Auto Viro/Sero SS Bordetella Parapertussis Not Detected *NA* (03/08/21 3:05 AM) Invalid Interpretation Code Not Detected AH Auto Viro/Sero SS C. pneumoniae DNA LON+non-probe Ql (Nph) Not Detected *NA* (03/08/21 3:05 AM) Invalid Interpretation Code Not Detected AH Auto Viro/Sero SS EMPLOYED IN A HEALTHCARE SETTING:FIND:PT:^TIFFANIE ENT:ORD: No (03/08/21 3:05 AM) Invalid Interpretation Code AH Auto Viro/Sero SS FIRST TEST FOR CONDITION OF INTEREST:FIND:PT:^PAT IENT:ORD: No (03/08/21 3:05 AM) Invalid Interpretation Code AH Auto Viro/Sero SS FLUAV RNA LON+non-probe Ql (Nph) Not Detected *NA* (03/08/21 3:05 AM) Invalid Interpretation Code Not Detected AH Auto Viro/Sero SS FLUBV RNA LON+non-probe Ql (Nph) Not Detected *NA* (03/08/21 3:05 AM) Invalid Interpretation Code Not Detected AH Auto Viro/Sero SS HAS SYMPTOMS RELATED TO CONDITION OF INTEREST:FIND:PT:^PAT IENT:ORD: Yes (03/08/21 3:05 AM) Invalid Interpretation Code Auto Viro/Sero SS hMPV RNA LON+non-probe Ql (Nph) Not Detected *NA* (03/08/21 3:05 AM) Invalid Interpretation Code Not Detected Auto Viro/Sero SS Illness or injury onset date and time [id number] Invalid Interpretation Code Auto Viro/Sero SS M. pneumoniae DNA LON+non-probe Ql (Nph) Not Detected *NA* (03/08/21 3:05 AM) Invalid Interpretation Code Not Detected Auto Viro/Sero SS Parainfluenza virus 1 RNA LON+non-probe Ql (Nph) Not Detected *NA* (03/08/21 3:05 AM) Invalid Interpretation Code Not Detected Auto Viro/Sero SS Parainfluenza virus 2 RNA LON+non-probe Ql (Nph) Not Detected *NA* (03/08/21 3:05 AM) Invalid Interpretation Code Not Detected Auto Viro/Sero SS Parainfluenza virus 3 RNA LON+non-probe Ql (Nph) Not Detected *NA* (03/08/21 3:05 AM) Invalid Interpretation Code Not Detected Auto Viro/Sero SS Parainfluenza virus 4 RNA LON+non-probe Ql (Nph) Not Detected *NA* (03/08/21 3:05 AM) Invalid Interpretation Code Not Detected Auto Viro/Sero SS Patient was hospitalized because of this condition No (03/08/21 3:05 AM) Invalid Interpretation Code Auto Viro/Sero SS status Unknown (03/08/21 3:05 AM) Invalid Interpretation Code Auto Viro/Sero SS RESIDES IN A CONGREGATE CARE SETTING:FIND:PT:^TIFFANIE ENT:ORD: No (03/08/21 3:05 AM) Invalid Interpretation Code Auto Viro/Sero SS Rhinovirus+Enteroviru s RNA LON+non-probe Ql (Nph) Not Detected *NA* (03/08/21 3:05 AM) Invalid Interpretation Code Not Detected Auto Viro/Sero SS RSV RNA LON+non-probe Ql (Nph) Not Detected *NA* (03/08/21 3:05 AM) Invalid Interpretation Code Not Detected AH Auto Viro/Sero SS SARS-CoV-2 (COVID-19) RNA LON+probe Ql (Unsp spec) Detected 1 *ABN* (03/08/21 3:05 AM) Invalid Interpretation Code Not Detected AH Auto Viro/Sero SS Comment on above: Result Comment: This organism causes a reportable disease. Infection Control has been notified. Results have been reported to the [facility]. Kirill 03-08-2021 Adenovirus Not detected Normal Not Detected [facility] ([place]) Comment on above: Performed By: #### R ESCVID #### [place] [address] Bordetella Parapertussis Not detected Normal Not Detected [facility] ([place]) Comment on above: Performed By: #### R ESCVID #### [place] [address] Bordetella Pertussis Not detected Normal Not Detected [facility] ([place]) Comment on above: Performed By: #### R ESCVID #### [place] [address] Chlamydophila pneumoniae Not detected Normal Not Detected [facility] ([place]) Comment on above: Performed By: #### R ESCVID #### [place] [address] Coronavirus 229E (Not COVID-19) Not detected Normal Not Detected [facility] ([place]) Comment on above: Performed By: #### R ESCVID #### [place] [address] Coronavirus HKU1 (Not COVID-19) Not detected Normal Not Detected [facility] ([place]) Comment on above: Performed By: #### R ESCVID #### [place] [id number] Coronavirus NL63 (Not COVID-19) Not detected Normal Not Detected [facility] ([place]) Comment on above: Performed By: #### R ESCVID #### [place] [address] Coronavirus OC43 (Not COVID-19) Not detected Normal Not Detected [facility] ([place] Comment on above: Performed By: #### R ESCVID #### [facility] [address] [place] [address] Date of Onset [id number] Invalid Interpretation Code [facility] ([place] Comment on above: Performed By: #### R ESCVID #### [facility] [address] [place] [address] 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 in Healthcare No Normal [facility] ([place] Comment on above: Performed By: #### R ESCVID #### [facility] [address] [place] [address] First Test No Normal [facility] ([place] Comment on above: Performed By: #### R ESCVID #### [facility] [address] [place] [address] Hospitalized No Normal [facility] ([place]) Comment on above: Performed By: #### R ESCVID #### [facility] [address] [place] [address] Human Metapneumovirus Not detected Normal Not Detected [facility] ([place] Comment on above: Performed By: #### R ESCVID #### [facility] [address] [place] [address] ICU No Normal [facility] ([place] Comment on above: Performed By: #### R ESCVID #### [facility] [address] [place] [id number] Influenza A Not detected Normal Not Detected [facility] ([place] Comment on above: Performed By: #### R ESCVID #### [facility] [address] [place] [address] Influenza B Not detected Normal Not Detected [facility] ([place] Comment on above: Performed By: #### R ESCVID #### [facility] [address] [place], [place] [id number] Mycoplasma pneumoniae Not detected Normal Not Detected [facility] ([place] Comment on above: Performed By: #### R ESCVID #### [facility] [address] [place] [address] Parainfluenza 1 Not detected Normal Not Detected [facility] ([place] Comment on above: Performed By: #### R ESCVID #### [place] [address] Parainfluenza 2 Not detected Normal Not Detected [facility] ([place] Comment on above: Performed By: #### R ESCVID #### [place] [address] Parainfluenza 3 Not detected Normal Not Detected [facility] ([place] Comment on above: Performed By: #### R ESCVID #### [place] [address] Parainfluenza 4 Not detected Normal Not Detected [facility] ([place] Comment on above: Performed By: #### R ESCVID #### [place] [address] Unknown Normal [facility] ([place] Comment on above: Performed By: #### R ESCVID #### [place] [address] Resides in Congregate Care Setting No Normal [facility] ([place] Comment on above: Performed By: #### R ESCVID #### [place] [address] Respiratory Syncytial Virus Not detected Normal Not Detected [facility] ([place] Comment on above: Performed By: #### R ESCVID #### [place] [address] Rhinovirus/Enteroviru s Not detected Normal Not Detected [facility] ([place] Comment on above: Performed By: #### R ESCVID #### [place] [address] SARS-CoV-2 (COVID-19) RNA LON+probe Ql (Unsp spec) Detected Abnormal Not Detected [facility] ([place]) Comment on above: Result Comment: This organism causes a reportable disease. Infection Control has been notified. Results have been reported to the [facility]. This test is being used under the FDA EUA procedure. This assay has been validated in the [facility] for use with nasopharyngeal specimens in [facility]. If a non-validated specimen or test collection method was used, please interpret the results with caution, especially if the test result is negative. A positive test result for COVID-19 indicates that RNA from SARS-CoV-2 was detected, and the patient is infected with the virus and presumed to be contagious. Laboratory test results should always be considered in the context of clinical observations and epidemiological data in making a final diagnosis and patient management decisions. Patient management should follow current CDC guidelines. A negative test result for this test means that SARS-CoV-2 RNA was not present in the specimen above the limit of detection. However, a negative result does not rule out COVID-19 and should not be used as the sole basis for treatment or patient management decisions. A negative result does not exclude the possibility of COVID-19. When diagnostic testing is negative, the possibility of a false negative result should be considered in the context of a patient's recent exposures and the presence of clinical signs and symptoms consistent with COVID-19. The possibility of a false negative result should especially be considered if the patient?s recent exposures or clinical presentation indicate that COVID-19 is likely, and diagnostic tests for other causes of illness (e.g., other respiratory illness) are negative. If COVID-19 is still suspected based on exposure history together with other clinical findings, re-testing should be considered by healthcare providers in consultation with public health authorities. Performed By: #### R ESCVID #### [address] [address] Symptomatic as Defined by CDC Yes Normal [facility] ([place]) Comment on above: Performed By: #### R ESCVID #### [address] [address] HCG,Urine Qualon 11-05-2020 Beta HCG ( test) Ql (U) Negative Normal Negative [facility] Comment on above: Result Comment: Isaias ricketts note: Very dilute urine specimens, as indicated by a low specific gravity, may not contain novelties sales representative levels of hCG. If is still suspected, a first morning urine specimen should be collected 48 hours later and tested. is the most common reason for HCG in urine, although choriocarcinoma, hydatidiform mole, and certain nontropho- blastic malignancies also result in detectable urinary HCG levels. Sensitivity = 20mIU/mL. Performed By: #### H CGUR #### [facility] [address] [place] [address] , urine LABOrdered By: Sunil Schaeffer on 11-05-2020 Beta HCG ( test) Ql (U) Negative Negative NA [employer] Work Phone: Comment on above: Please note: Very di lute urine specimens, as indicated by a low specific gravity, may not contain novelties sales representative levels of hCG. If is still suspected, a first morning urine specimen should be collected 48 hours later and tested. is the most common reason for HCG in urine, although choriocarcinoma, hydatidiform mole, and certain nontropho- blastic malignancies also result in detectable urinary HCG levels. Sensitivity = 20mIU/mL. Test Performed by [facility], [address] , [place], [place] [address] [employer] Work Phone: [employer] Work Phone: [facility] 021 Surgical Pathology [id number] [facility] PATHOLOGY [facility]ORATORY MEDICINE [address] [place] [address] [phone] Fax - FINAL SURGICAL PATHOLOGY REPORT NAME: SUGAR FERREIRA : 2005 14 Y F BILLING NO.: [id number] LOCATION: [facility] Cely PROCEDURE 11/05/2020 DATE: SURGEON: JARAD TERRELL DO RECEIVED 11/05/2020 DATE: ATTENDING: JARAD TERRELL DO REPORT DATE: 11/09/2020 COPIES TO: DIAGNOSIS: A. SEPTAL BONE AND CARTILAGE, CURETTINGS - UNREMARKABLE OSTEOCARTILAGINOUS TISSUE (GROSS DIAGNOSIS ONLY) B. BILATERAL PARTIAL TURBINATES, CURETTINGS - CHRONICALLY INFLAMED BENIGN SINONASAL EPITHELIUM JAW/JAW Signature> GIORGIO GARAY M.D. CLINICAL INFORMATION: Deviated nasal septum, hypertrophy of nasal turbinates SPECIMEN: (A) NASAL SEPTAL BONE AND CARTILAGE (B) NASAL TURBINATES GROSS DESCRIPTION: A. Received in formalin labeled septal bone and cartilage" are multiple flat estrella-white to white-franco tissue segments aggregating to 3 x 3 cm. Some of the tissue is pliable and resembles cartilage while other segments are hard and resemble bone. The specimen is grossly unremarkable. No sections. B. Received in formalin labeled bilateral partial turbinates" within a plastic suction collection device are a few small fragments of estrella-white tissue aggregating to 0.2 x 0.2 cm. The specimen is entirely submitted in a single cassette. [id number] Disclaimer: The following statement applies to all immunohistochemistr y, in situ hybridization, molecular studies, and immunofluorescence testing. The use of one or more reagents in the above tests is regulated as an analyte specific reagent (ASR). These tests were developed and their performance characteristics determined by the clinical laboratories of [facility]. They have not been cleared by the US Food and Drug Administration (FDA). The FDA has determined that such clearance or approval is not necessary. All the above immunostains were performed on paraffin embedded tissue. Appropriate positive and negative controls (where applicable) were run in parallel with the patient's specimen; these controls showed expected staining pattern, with acceptable intensity of staining. Immunohistochemical assays have not been validated on decalcified tissues. Results should be interpreted with caution given the raised possibility of false negativity on decalcified specimens. Case reviewed at [place] [address] [place] [address]. DEPARTMENT OF PATHOLOGY AND LABORATORY MEDICINE [place], [place] [address] [email or web address] Normal [facility] PREGUon 06-16-2020 HCG ( test) Ql (U) Negative Normal [facility] ([place]) Comment on above: Performed By: #### U A, PREGU #### [address] [address] test (u) int Not detected Invalid Interpretation Code [facility] ([place]) Comment on above: Performed By: #### U A, PREGU #### [address] [address] UAon 06-16-2020 Color (U) Yellow Normal [facility] ([place]) Comment on above: Performed By: #### U A, PREGU #### [address] [address] Glucose (U) [Mass/Vol] Negative Normal Negative [facility] ([place]) Comment on above: Performed By: #### U A, PREGU #### [address] [address] Ketones Ql (U) Negative Normal Negative [facility] ([place]) Comment on above: Performed By: #### U A, PREGU #### [address] [address] UA Appear Clear Normal Clear [facility] ([place]) Comment on above: Performed By: #### U A, PREGU #### [address] [address] UA Bili Small Abnormal Negative [facility] ([place]) Comment on above: Performed By: #### U A, PREGU #### [address] [address] UA Blood Negative Normal Negative [facility] ([place]) Comment on above: Performed By: #### U A, PREGU #### [address] [address] UA Leuk Est Negative Normal Negative [facility] ([place]) Comment on above: Performed By: #### U A, PREGU #### [address] [address] UA Nitrite Negative Normal Negative [facility] ([place] Comment on above: Performed By: #### U A, PREGU #### [address] [address] UA pH 6.0 Normal 5.0 - 8.0 [facility] ([place] Comment on above: Performed By: #### U A, PREGU #### [address] [address] UA Protein Negative Normal Negative [facility] ([place] Comment on above: Performed By: #### U A, PREGU #### [address] [address] UA Spec Grav 1.015 Normal 1.015-1.025 [facility] ([place]) Comment on above: Performed By: #### U A, PREGU #### [address] [address] UA Specimen Type Clean Catch Normal [facility] ([place] Comment on above: Performed By: #### U A, PREGU #### [address] [address] UA Urobilinogen 0.2 E.U./dL Normal 0.2-1.0 [facility] ([place]) Comment on above: Performed By: #### U A, PREGU #### [address] [address] Vital Signs Date Time Vital Sign Value Performing Clinician Facility 06-13-2024 18:47-0500 Body mass index (BMI) [Ratio] 19.14 kg/m2 [facility] REFRIGERATING TECHNICIAN.CHILDCARE TEACHER Work Phone: [facility] 06-13-2024 18:47-0500 Body temperature 98.8 [degF] [facility] REFRIGERATING TECHNICIAN.CHILDCARE TEACHER Work Phone: [facility] 06-13-2024 18:47-0500 Body weight 49.8 kg [facility] REFRIGERATING TECHNICIAN.CHILDCARE TEACHER Work Phone: [facility] 06-13-2024 18:47-0500 Diastolic blood pressure 66 mm[Hg] [facility] REFRIGERATING TECHNICIAN.CHILDCARE TEACHER Work Phone: [facility] 06-13-2024 18:47-0500 Heart rate 71 /min [facility] REFRIGERATING TECHNICIAN.CHILDCARE TEACHER Work Phone: [facility] 06-13-2024 18:47-0500 Respiratory rate 18 /min [facility] REFRIGERATING TECHNICIAN.CHILDCARE TEACHER Work Phone: [facility] 06-13-2024 18:47-0500 SaO2% (BldA) [Mass fraction] 99 % [facility] REFRIGERATING TECHNICIAN.CHILDCARE TEACHER Work Phone: [facility] 06-13-2024 18:47-0500 Systolic blood pressure 107 mm[Hg] [facility] REFRIGERATING TECHNICIAN.CHILDCARE TEACHER Work Phone: [facility] 03-25-2024 13:08-0400 Body mass index (BMI) [Ratio] 19.3 kg/m2 Curry Worley MD Work Phone: [facility] 03-25-2024 13:08-0400 Body temperature 98.01 [degF] Curry Worley MD Work Phone: [facility] 03-25-2024 13:08-0400 Body weight 50.2 kg Curry Worley MD Work Phone: [facility] 03-25-2024 13:08-0400 Diastolic blood pressure 60 mm[Hg] Curry Worley MD Work Phone: [facility] 03-25-2024 13:08-0400 Heart rate 72 /min Curry Worley MD Work Phone: [facility] 03-25-2024 13:08-0400 Respiratory rate 20 /min Curry Wolrey MD Work Phone: [facility] 03-25-2024 13:08-0400 Systolic blood pressure 98 mm[Hg] Curry Worley MD Work Phone: [facility] 10-12-2023 14:50-0400 Body height 161.3 cm Curry Worley MD Work Phone: [facility] 10-12-2023 14:50-0400 Body mass index (BMI) [Ratio] 18.78 kg/m2 Curry Worley MD Work Phone: [facility] 10-12-2023 14:50-0400 Body temperature 99.19 [degF] Curry Worley MD Work Phone: [facility] 10-12-2023 14:50-0400 Body weight 48.85 kg Curry Worley MD Work Phone: [facility] 10-12-2023 14:50-0400 Diastolic blood pressure 60 mm[Hg] Curry Worley MD Work Phone: [facility] 10-12-2023 14:50-0400 Heart rate 88 /min Curry Worley MD Work Phone: [facility] 10-12-2023 14:50-0400 Respiratory rate 20 /min Curry Worley MD Work Phone: [facility] 10-12-2023 14:50-0400 Systolic blood pressure 100 mm[Hg] Curry Worley MD Work Phone: [facility] 01-02-2023 09:53-0400 Body height 165.[address] Curry Worley Work Phone: [facility] 01-02-2023 09:53-0400 Body mass index (BMI) [Percentile] Per age and sex 0.2 % Dr. Curry Worley Work Phone: [facility] 01-02-2023 09:53-0400 Body mass index (BMI) [Ratio] 16 kg/m2 Dr. Curry Worley Work Phone: 4(829)531-708460 [place] [address] 01-02-2023 09:53-0400 Body weight 43.[address] Curry Worley Work Phone: 8(073)371-238580 [place] [address] 01-02-2023 09:53-0400 Diastolic blood pressure 82 mm[Hg] Dr. Curry Worley Work Phone: 9(510)658-756280 [place] [address] 01-02-2023 09:53-0400 Systolic blood pressure 127 mm[Hg] Dr. Curry Worley Work Phone: 8(275)724-939380 [place] [address] 12-15-2022 14:45-0400 Body temperature 97.2 [degF] Dr. Curry Worley Work Phone: 7(659)178-184880 [place] [address] 12-15-2022 14:45-0400 Diastolic blood pressure 55 mm[Hg] Dr. Curry Worley Work Phone: 7(405)494-181480 [place] [address] 12-15-2022 14:45-0400 Heart rate 77 /min Dr. Curry Worley Work Phone: 4(867)735-613780 [place] [address] 12-15-2022 14:45-0400 Respiratory rate 16 /min Dr. Curry Worley Work Phone: 7(087)757-259880 [place] [address] 12-15-2022 14:45-0400 SaO2% (BldA) [Mass fraction] 100 % Dr. Curry Worley Work Phone: 8(150)390-461680 [place] [address] 12-15-2022 14:45-0400 Systolic blood pressure 104 mm[Hg] Dr. Curry Worley Work Phone: 6(082)770-395780 [place] [address] 12-15-2022 09:32-0400 Body height 165.[address] Curry Worley Work Phone: 8(296)432-204980 [place] [address] 12-15-2022 09:32-0400 Body mass index (BMI) [Percentile] Per age and sex 5.9 % Dr. Curry Worley Work Phone: 3(061)877-174580 [place] [address] 12-15-2022 09:32-0400 Body mass index (BMI) [Ratio] 17.9 kg/m2 Dr. Curry Worley Work Phone: 1(981)050-126180 [place] [address] 12-15-2022 09:32-0400 Body weight 48.[address] Curry Worley Work Phone: 4(650)105-674080 [place] [address] 12-07-2022 16:30-0400 Body temperature 98 [degF] Dr. Curry Worley Work Phone: 8(639)048-482180 [place] [address] 12-07-2022 16:30-0400 Diastolic blood pressure 68 mm[Hg] Dr. Curry Worley Work Phone: 6(003)214-438280 [place] [address] 12-07-2022 16:30-0400 Heart rate 77 /min Dr. Curry Worley Work Phone: 9(046)834-557580 [place] [address] 12-07-2022 16:30-0400 Respiratory rate 16 /min Dr. Curry Worley Work Phone: 7(620)364-357380 [place] [address] 12-07-2022 16:30-0400 SaO2% (BldA) [Mass fraction] 98 % Dr. Curry Worley Work Phone: 3(457)073-029880 [place] [address] 12-07-2022 16:30-0400 Systolic blood pressure 110 mm[Hg] Dr. Curry Worley Work Phone: 7(046)529-444280 [place] [address] 12-07-2022 11:33-0400 Body mass index (BMI) [Percentile] Per age and sex 10.9 % Dr. Curry Worley Work Phone: 7(632)165-636880 [place] [address] 12-07-2022 11:33-0400 Body mass index (BMI) [Ratio] 18.5 kg/m2 Dr. Curry Worley Work Phone: 2(839)450-396180 [place] [address] 12-07-2022 11:33-0400 Body weight 48.[address] Curry Worley Work Phone: 9(561)436-932680 [place] [address] 12-05-2022 03:55-0400 Diastolic blood pressure 65 mm[Hg] Dr. Curry Worley Work Phone: 0(667)193-917180 [place] [address] 12-05-2022 03:55-0400 Heart rate 65 /min Dr. Curry Worley Work Phone: 8(582)311-005660 [place] [address] 12-05-2022 03:55-0400 SaO2% (BldA) [Mass fraction] 100 % Dr. Curry Worley Work Phone: 6(441)543-443980 [place] [address] 12-05-2022 03:55-0400 Systolic blood pressure 110 mm[Hg] Dr. Curry Worley Work Phone: 9(087)647-720580 [place] [address] 12-05-2022 00:44-0400 Body height 162.[address] Curry Worley Work Phone: 9(525)055-562080 [place] [address] 12-05-2022 00:44-0400 Body mass index (BMI) [Percentile] Per age and sex 98.7 % Dr. Curry Worley Work Phone: 6(457)775-739280 [place] [address] 12-05-2022 00:44-0400 Body mass index (BMI) [Ratio] 40.9 kg/m2 Dr. Curry Worley Work Phone: 4(452)886-388580 [place] [address] 12-05-2022 00:44-0400 Body temperature 97.6 [degF] Dr. Curry Worley Work Phone: 6(183)719-458380 [place] [address] 12-05-2022 00:44-0400 Body weight 108.[address] Curry Worley Work Phone: 2(569)537-935480 [place] [address] 12-05-2022 00:44-0400 Respiratory rate 18 /min Dr. Curry Worley Work Phone: 8(895)431-402780 [place] [address] 08-25-2022 14:07-0400 Body height 160.[address] Curry Worley Work Phone: 7(838)232-972180 [place] [address] 08-25-2022 14:00-0400 Body mass index (BMI) [Percentile] Per age and sex 8.6 % Dr. Curry Worlye Work Phone: 1(993)695-264180 [place] [address] 08-25-2022 14:00-0400 Body mass index (BMI) [Ratio] 18.2 kg/m2 Dr. Curry Worley Work Phone: 9(229)451-923680 [place] [address] 08-25-2022 14:00-0400 Body weight 46.[address] Curry Worley Work Phone: [facility] 08-25-2022 14:00-0400 Diastolic blood pressure 62 mm[Hg] Dr. Curry Worley Work Phone: [facility] 08-25-2022 14:00-0400 Systolic blood pressure 98 mm[Hg] Dr. Curry Worley Work Phone: [facility] 06-22-2022 13:33-0500 Body temperature 97.3 [degF] Alexi Rai MD Work Phone: [facility] 06-22-2022 13:33-0500 Body weight 45.54 kg Alexi Rai MD Work Phone: [facility] 06-22-2022 13:33-0500 Diastolic blood pressure 62 mm[Hg] Alexi Rai MD Work Phone: [facility] 06-22-2022 13:33-0500 Heart rate 100 /min Alexi Rai MD Work Phone: [facility] 06-22-2022 13:33-0500 Respiratory rate 21 /min Alexi Rai MD Work Phone: [facility] 06-22-2022 13:33-0500 SaO2% (BldA) [Mass fraction] 99 % Alexi Rai MD Work Phone: [facility] 06-22-2022 13:33-0500 Systolic blood pressure 90 mm[Hg] Alexi Rai MD Work Phone: [facility] 01-09-2022 12:49-0400 Body temperature 98.4 [degF] Brigid Vázquez APRN.CHILDCARE TEACHER Work Phone: [facility] 01-09-2022 12:49-0400 Body weight 42.09 kg Brigid Vázquez APRN.CHILDCARE TEACHER Work Phone: [facility] 01-09-2022 12:49-0400 Diastolic blood pressure 54 mm[Hg] Brigid Vázquez APRN.CHILDCARE TEACHER Work Phone: [facility] 01-09-2022 12:49-0400 Heart rate 91 /min Brigid Vázquez REFRIGERATING TECHNICIAN.CHILDCARE TEACHER Work Phone: [facility] 01-09-2022 12:49-0400 Respiratory rate 21 /min Brigid Vázquez APRN.CHILDCARE TEACHER Work Phone: [facility] 01-09-2022 12:49-0400 SaO2% (BldA) [Mass fraction] 99 % Brigid Vázquez APRN.CHILDCARE TEACHER Work Phone: [facility] 01-09-2022 12:49-0400 Systolic blood pressure 92 mm[Hg] Brigid Vázquez APRN.CHILDCARE TEACHER Work Phone: [facility] 09-22-2021 15:56-0400 Body temperature 98.71 [degF] Rema Athy PA-C Work Phone: [facility] 09-22-2021 15:56-0400 Body weight 44.36 kg Rema Athy PA-C Work Phone: [facility] 09-22-2021 15:56-0400 Diastolic blood pressure 70 mm[Hg] Rema Athy PA-C Work Phone: [facility] 09-22-2021 15:56-0400 Heart rate 80 /min Rema Athy PA-C Work Phone: [facility] 09-22-2021 15:56-0400 Respiratory rate 20 /min Rema Athy PA-C Work Phone: [facility] 09-22-2021 15:56-0400 SaO2% (BldA) [Mass fraction] 99 % Rema Athy PA-C Work Phone: [facility] 09-22-2021 15:56-0400 Systolic blood pressure 102 mm[Hg] Rema Athy PA-C Work Phone: [facility] 03-08-2021 02:22-0400 Body height 160 cm CATHRYN GUERRA MD [facility] 03-08-2021 02:22-0400 Body temperature 101.84 [degF] CATHRYN GUERRA MD [facility] 03-08-2021 02:22-0400 Body weight 45.1 kg CATHRYN GUERRA MD [facility] 03-08-2021 02:22-0400 Heart rate 120 /min CATHRYN GUERRA MD [facility] 03-08-2021 02:22-0400 Respiratory rate 24 /min CATHRYN GUERRA MD [facility] 11-05-2020 13:30-0400 Diastolic blood pressure 85 mm[Hg] [employer] Phone: [employer] Work Phone: 11-05-2020 13:30-0400 Heart rate 84 /min [employer] Work Phone: [employer] Work Phone: 11-05-2020 13:30-0400 Respiratory rate 18 /min [employer] Phone: [employer] Work Phone: 11-05-2020 13:30-0400 SaO2% (BldA) [Mass fraction] 96 % [employer] Work Phone: [employer] Work Phone: 11-05-2020 13:30-0400 Systolic blood pressure 115 mm[Hg] Jarad Trendy [employer] Work Phone: [employer] Work Phone: 11-05-2020 12:40-0400 Body temperature 97.59 [degF] [employer]ad [employer] Phone: [employer] Work Phone: 11-05-2020 09:57-0400 Body height 160 cm Jarad Trendy [employer] Work Phone: [employer] Work Phone: 11-05-2020 09:39-0400 Body mass index (BMI) [Ratio] 15.84 kg/m2 Jarad Terrell [employer] Work Phone: [employer] Work Phone: 11-05-2020 09:39-0400 Body weight 40.55 kg Jarad Terrell [employer] Work Phone: [employer] Work Phone: Encounters Encounter Date Encounter Type Care Provider Facility Start: 05-09-2025 ambulatory [facility] Facility: [facility] Start: 09-13-2024 End: 09-14-2024 Refill Curry Worley MD Work Phone: [facility] Comment on above: Refill Request Start: 06-13-2024 End: 06-13-2024 ambulatory CURRY WORLEY Facility:[facility] Start: 06-13-2024 End: 06-13-2024 Office outpatient visit 15 minutes Simone Fabian APRN.CNP Work Phone: [facility] Comment on above: Rash (Primary Dx) Start: 03-25-2024 End: 03-25-2024 ambulatory CURRY WORLEY Facility:[facility] Start: 03-25-2024 End: 03-25-2024 Office outpatient visit 25 minutes Curry Worley MD Work Phone: [facility] [place] Comment on above: MARIA DE JESUS (generalized anx iety disorder) (Primary Dx) Start: 11-03-2023 Refill Curry Worley MD Work Phone: [facility] [place] Comment on above: Med Change Request Start: 10-12-2023 End: 10-12-2023 ambulatory CURRY WORLEY Facility:[facility] Start: 10-12-2023 End: 10-12-2023 Office outpatient visit 25 minutes Curry Worley MD Work Phone: [facility] Comment on above: MARIA DE JESUS (generalized anx iety disorder) (Primary Dx); Adjustment disorder with depressed mood Start: 08-23-2023 End: 08-23-2023 ambulatory [facility] Work Phone: Start: 08-23-2023 End: 08-23-2023 Patient encounter procedure [facility] Work Phone: Start: 06-18-2023 Telephone encounter Roberto ZAMORA Work Phone: [facility] Comment on above: Results Start: 06-17-2023 End: 06-17-2023 ambulatory CURRY WORLEY Facility:[facility] Start: 04-24-2023 End: 04-24-2023 ambulatory [facility] Work Phone: Start: 04-24-2023 End: 04-24-2023 Discharged Recurring [facility] Work Phone: Start: 01-03-[address] Curry Worley Work Phone: [facility] Work Phone: Start: 01-02-2023 End: 01-02-[address] Curry Worley Work Phone: [facility] Work Phone: Start: 01-02-2023 End: 01-02-[address] Curry Worley Work Phone: [facility]Laboratory, Specimen Work Phone: Start: 01-02-2023 End: 01-02-[address] Curry Worley Work Phone: [facility] Work Phone: Start: 12-15-2022 End: 12-15-2022 Admission to same day surgery center Dr. Curry Worley Work Phone: [facility] Start: 12-15-2022 End: 12-15-[address] Curry Worley Work Phone: [facility] Work Phone: Start: 12-07-2022 End: 12-07-2022 Admission to same day surgery center Dr. Curry Worley Work Phone: [facility] Start: 12-05-2022 End: 12-05-2022 Emergency department patient visit Dr. 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 Curry Worley Work Phone: [facility] Work Phone: Start: 08-25-2022 End: 08-25-[address] Curry Worley Work Phone: [facility]Laboratory, Specimen Start: 08-25-2022 End: 08-25-[address] Curry Worley Work Phone: [facility] Start: 08-16-2022 Orders Only Sandoval hoyos Work Phone: Podiatry Comment on above: Bilateral foot pain (Primary Dx) Start: 08-03-2022 Telephone encounter Curry spivey MD Work Phone: [facility] Comment on above: podiatry referral Start: 06-22-2022 End: 06-22-2022 Patient encounter procedure Alexi Rai MD Work Phone: [facility] Comment on above: Influenza-like illne ss (Primary Dx); Sore throat Start: 04-26-2022 Telephone encounter Wen Florence REFRIGERATING TECHNICIAN.CHILDCARE TEACHER Work Phone: [facility] Comment on above: Results Start: 01-10-2022 Telephone encounter Wen Florence REFRIGERATING TECHNICIAN.CHILDCARE TEACHER Work Phone: [facility] Comment on above: Results Start: 01-09-2022 End: 01-09-2022 Patient encounter procedure Brigid Vázquez REFRIGERATING TECHNICIAN.CHILDCARE TEACHER Work Phone: [facility] Comment on above: Sore throat (Primary Dx); At increased risk of exposure to COVID-19 virus; Acute cough Start: 09-23-2021 Refill Rema Mary Athy PA -C Work Phone: [facility] Comment on above: Refill Request Start: 09-22-2021 End: 09-22-2021 Patient encounter procedure Rema R Athy PA-C Work Phone: [facility] Comment on above: Bronchitis (Primary Dx) Start: 03-08-2021 End: 03-08-2021 Emergency department patient visit CATHRYN GUERRA MD [facility] Start: 11-05-2020 End: 11-05-2020 [facility]: [facility] Comment on above: Arrived Procedures Date Procedure Procedure Detail Performing Clinician Start: 03-25-2024 Adult depression scr eening assessment Simone Fabian REFRIGERATING TECHNICIAN.CHILDCARE TEACHER Work Phone: Start: 08-23-2023 MRI of joint of lowe r extremity Start: 01-02-2023 Cytopathology proced ure, preparation of smear, genital source Dr. Curry Worley Work Phone: Start: 01-02-2023 Investigation of transfusion reaction Dr. Curry Worley Work Phone: Start: 12-15-2022 Open reduction with internal fixation Dr. Curry Worley Work Phone: Start: 12-15-2022 Removal of external fixation Dr. Curry Worley Work Phone: Start: 12-15-2022 Fluoroscopic guidance Cayden Worley Work Phone: Start: 12-15-[address] Noam Worley Work Phone: Start: 12-07-2022 Fluoroscopic guidance Cayden Worley Work Phone: Start: 12-07-[address] Noam Worley Work Phone: Start: 12-05-2022 MRI of lower extremity Dr. Curry Worley Work Phone: Start: 12-05-2022 Plain X-ray of tibia and fibula Dr. Curry Worley Work Phone: Start: 12-05-[address] Noam Worley Work Phone: Start: 12-05-2022 X-ray of both feet Dr. Curry Worley Work Phone: Start: 09-26-2022 Radex foot complete minimum 3 views Sandoval Salomonyousif Work Phone: Start: 06-22-2022 STREP A MOLECULAR (POC) Alexi Rai MD Work Phone: Start: 01-09-2022 STREP A MOLECULAR (POC) Brigid Vázquez APRN.CHILDCARE TEACHER Work Phone: Start: 11-05-2020 Urine test visual color cmprsn meths Sunil Schaeffer MD Work Phone: Start: 10-16-2019 Adult depression scr eening assessment Rema ZMAORA-C Work Phone: Operation on nose CATHRYN Shabazz MD Comment on above: reconstruction Structure of eye pro per (body structure) CATHRYN GUERRA MD Comment on above: bilateral occlusion Tonsillectomy and adenoidectomy CATHRYN GUERRA MD Plan of Treatment Date Care Activity Detail Author Start: 01-17-2026 DTaP/Tdap/Td vaccine (6 - Td or Tdap) DTaP/Tdap/Td vaccine (6 - Td or Tdap) [facility] Work Phone: Start: 01-17-2026 Urine microalbumin profile [facility] Start: 03-25-2025 Depression Screening Depression Scre ening [facility] Start: 10-11-2024 Anxiety Screening Anxiety Screening [facility] Start: 10-07-2024 End: 10-07-2024 Patient encounter procedure 10/07/2024 11:10 AM EDT Office Visit OB/Gynecology [address] [place] [address] Laurent Hicks MD [address] [place] [address] control OB/Gynecology Comment on above: control Start: 04-29-2024 End: 04-29-2024 Patient encounter procedure 04/29/2024 8:30 AM EST Office Visit [facility] [place] [address] [place] [address] Curry Worley MD [address] [facility] [place] [address] med check [facility] Comment on above: med check Start: 01-28-2024 Covid-19 Vaccine ( season) Covid-19 Vaccine () [facility] Start: 01-28-2024 Influenza vaccination [facility] Start: 11-13-2023 End: 11-13-2023 Patient encounter procedure 11/13/2023 8:00 AM EDT Office Visit [facility] [place] [address] [place] [address] Curry Worley MD [address] [facility] [place] [address] 1 month med check [facility] [place] Comment on above: 1 month med check Start: 05-29-2023 Behavioral Health Screening Behavioral Health Screening [facility] Start: 05-29-2023 Depression Assessment Depression Ass essment [facility] Start: 01-27-2023 Covid-19 Vaccine () Covid-19 Vaccine () [facility] Start: 01-27-2023 Influenza vaccination [facility] Start: 12-15-2022 Application of ice collar, cap or bag [facility] Start: 12-15-2022 Elevation of affecte d extremity [facility] Start: 12-15-2022 Patient discharge [facility] Start: 12-15-2022 Catheterization of vein [facility] Start: 12-15-2022 Following clinical pathway protocol [facility] Start: 12-15-2022 Procedure discontinued [facility] Start: 12-15-2022 Taking patient vital signs [facility] Start: 12-15-2022 Vital signs measurements [facility] Start: 12-15-2022 [facility] Start: 12-15-2022 Anes open proc bones lower leg/ankle/foot nos ANESTH LOWER LEG BONE SURG [facility] Start: 12-15-2022 Open treatment fract ure distal tibia only TREAT LOWER LEG FRACTURE [facility] Start: 12-15-2022 Removal external fix ation system under anes REMOVE BONE FIXATION DEVICE [facility] Start: 12-15-2022 Medication education [facility] Start: 12-07-2022 Patient discharge [facility] Start: 12-07-2022 Application of ice collar, cap or bag [facility] Start: 12-07-2022 Catheterization of vein [facility] Start: 12-07-2022 Following clinical pathway protocol [facility] Start: 12-07-2022 Procedure discontinued [facility] Start: 12-07-2022 Taking patient vital signs [facility] Start: 12-07-2022 Vital signs measurements [facility] Start: 12-07-2022 End: 12-07-2022 [facility] Start: 12-07-2022 Anesthesia closed pr oc lower leg ankle & foot ANESTH LOWER LEG PROCEDURE [facility] Start: 12-07-2022 Cltx fx w8 brg artcl r prtn dstl tib w/skel tracj TREAT LOWER LEG FRACTURE [facility] Start: 12-07-2022 Medication education [facility] Start: 06-22-2022 End: 07-06-2022 Influenza virus A and B RNA and SARS-CoV-2 (COVID-19) N gene panel - Respiratory specimen by LON with probe detection COVID WITH FLUA+B, ROUTINE Microbiology Routine Sore throat Influenza-like illness Expected: 06/22/2022, Expires: 07/06/2022 [facility] Work Phone: Comment on above: Expected: 06/22/2022 , Expires: 07/06/2022 Start: 05-29-2022 DEPRESSION ASSESSMENT DEPRESSION ASS [facility] Start: 01-27-2022 Influenza vaccination [facility] Start: 01-09-2022 End: 01-23-2022 Influenza virus A and B RNA and SARS-CoV-2 (COVID-19) N gene panel - Respiratory specimen by LON with probe detection COVID WITH FLUA+B, ROUTINE Microbiology Routine Sore throat At increased risk of exposure to COVID-19 virus Acute cough Expected: 01/09/2022, Expires: 01/23/2022 [facility] Work Phone: Comment on above: Expected: 01/09/2022 , Expires: 01/23/2022 Start: 12-05-2021 Anxiety Screening Anxiety Screening [facility] Start: 12-05-2021 CHLAMYDIA SCREENING (18-24) CHLAMYDIA SCREENING (18-24) [facility] Start: 12-05-2021 Depression Screening Depression Scre ening [facility] Start: 12-05-2021 GC (GONORRHEA) SCREE TALON (18-24) GC (GONORRHEA) SCREENING (18-24) [facility] Start: 12-05-2021 HEPATITIS C SCREENING HEPATITIS C [facility] Start: 12-05-2021 Hepatitis C screening Hepatitis C [facility] Start: 12-05-2021 HIV SCREENING HIV SCREENING [facility] Start: 12-05-2021 HIV screening HIV Screening [facility] Start: 12-05-2021 Screening for Chlamy ayanna trachomatis Chlamydia Screening (18) [facility] Start: 09-22-2021 End: 10-06-2021 COVID, FLU A/B + RSV, ROUTINE [facility] Work Phone: Comment on above: Expected: 09/22/2021 , Expires: 10/06/2021 Start: 05-29-2021 DEPRESSION ASSESSMENT DEPRESSION ASS ESSMENT [facility] Start: 12-13-2020 Meningococcal B Vacc ine (2 of 2 - Bexsero SCDM 2-dose series) Meningococcal B Vaccine (2 of 2 - Bexsero SCDM 2-dose series) [facility] Start: 10-15-2020 Adult depression screening assessment DEPRESSION SCREENING [facility] Start: 07-13-2020 Meningococcal B Vacc ine: Consider Based On Risk (2 of 2 - Risk Bexsero 2-dose series) Meningococcal B Vaccine: Consider Based On Risk (2 of 2 - Risk Bexsero 2-dose series) [facility] Start: 07-13-2020 MENINGOCOCCAL B: Con lap machine tender based on risk (2 of 2 - Risk Bexsero 2-dose series) MENINGOCOCCAL B: Consider based on risk (2 of 2 - Risk Bexsero 2-dose series) [facility] Start: 2019 Screening for Chlamy ayanna trachomatis Chlamydia screen [facility] Work Phone: Start: 12-05-2018 CHLAMYDIA SCREENING (<18) CHLA MYDIA SCREENING (<18) [facility] Start: 12-05-2018 GC (GONORRHEA) SCREE TALON (<18) GC (GONORRHEA) SCREENING (<18) [facility] Start: 12-05-2018 HIV screening HIV screen [facility] Work Phone: Start: 12-05-2017 PEDS TO ADULT TRANSI TION ANNUAL ASSESSMENT PEDS TO ADULT TRANSITION ANNUAL ASSESSMENT [facility] Start: 2015 COVID-19 Vaccine (1) COVID-19 Vaccin e (1) [facility] Work Phone: Start: 2015 PEDS TO ADULT TRANSI TION INITIAL DISCUSSION PEDS TO ADULT TRANSITION INITIAL DISCUSSION [facility] Start: 12-05-2008 COVID-19 VACCINE (1) COVID-19 VACCIN E (1) [facility] Start: 12-05-2004 Hepatitis A vaccine (1 of 2 - 2-dose series) Hepatitis A vaccine (1 of 2 - 2-dose series) [facility] Work Phone: Start: 06-07-2004 COVID-19 VACCINE (#1) COVID-19 VACCI NE (#1) [facility] Start: 02-27-2004 Hepatitis B vaccine (2 of 3 - 3-dose primary series) Hepatitis B vaccine (2 of 3 - 3-dose primary series) [facility] Work Phone: End: 11-05-2020 Intermittent pulse oximetry Pulse Oximetry Spot Check Respiratory Care Routine One Time for 1 Occurrences starting 11/05/2020 until 11/05/2020 [facility] Work Phone: Comment on above: One Time for 1 Occur rences starting 11/05/2020 until 11/05/2020 Oxygen therapy [[facility] Data Set] Initiate Oxygen Therapy Protocol Respiratory Care Routine Daily until discontinued starting 11/05/2020 [employer] Work Phone: Comment on above: Daily until disconti nued starting 11/05/2020 Patient Education Ankle Fracture ORIF ED Splint Care, [employer]erg[employer] [facility] Work Phone: Patient referral [facility] Work Phone: Phase I & II - meter ed glucose Phase I & II - metered glucose Point of Care Testing Routine As Needed until discontinued starting 11/05/2020 [id number] Work Phone: Comment on above: As Needed until disc ontinued starting 11/05/2020 Spirometry panel Incentive tiffanie metry Respiratory Care Routine Q1H PRN until discontinued starting 11/05/2020 [id number] Work Phone: Comment on above: Q1H PRN until discon tinued starting 11/05/2020 End: 09-15-2023 XR FOOT GENERAL 3V AP/LAT/OBL BILATERAL XR FOOT GENERAL 3V AP/LAT/OBL BILATERAL Radiology Routine Bilateral foot pain 1 Occurrences starting 08/16/2022 until 09/15/2023 [facility] Work Phone: Comment on above: 1 Occurrences starti ng 08/16/2022 until 09/15/2023 [facility] Immunizations Immunization Date Immunization Notes Care Provider Storm giles 06-15-2020 influenza, injectabl e, quadrivalent, preservative free Rema Gonzalez PA-C Work Phone: [facility] 06-15-2020 meningococcal B vacc ine, recombinant, OMV, adjuvanted Rema Gonzalez PA-C Work Phone: [facility] 06-15-2020 meningococcal polysaccharide (groups A, C, Y and W-135) diphtheria toxoid conjugate vaccine (MCV4P) Rema Gonzalez PA-C Work Phone: [facility] 06-15-2020 influenza virus vacc ine, unspecified formulation [employer] Work Phone: [facility] 05-06-2019 influenza, injectabl e, quadrivalent, preservative free Rema Gonzalez PA-C Work Phone: [facility] 07-06-2018 influenza, injectabl e, quadrivalent, contains preservative Rema ZAMORA-Natalia Work Phone: [facility] 12-05-2016 Human Papillomavirus 9-valent vaccine Rema Gonzalez PA-C Work Phone: [facility] 01-18-2016 Human Papillomavirus 9-valent vaccine Rema Gonzalez PA-C Work Phone: [facility] 01-18-2016 meningococcal polysaccharide (groups A, C, Y and W-135) diphtheria toxoid conjugate vaccine (MCV4P) Rema Gonzalez PA-C Work Phone: [facility] 01-18-2016 tetanus toxoid, redu mayte diphtheria toxoid, and acellular pertussis vaccine, adsorbed Rema Gonzalez PA-C Work Phone: [facility] 04-06-2013 influenza virus vacc ine, unspecified formulation Rema Gonzalez PA-C Work Phone: [facility] 03-17-2012 influenza virus vacc ine, unspecified formulation Rema Gonzalez PA-C Work Phone: [facility] 03-17-2012 influenza, seasonal, injectable, preservative free Rema ZAMORA-Natalia Work Phone: [facility] 04-27-2010 influenza virus vacc ine, unspecified formulation Rema Gonzalez PA-C Work Phone: [facility] Work Phone: 03-25-2010 influenza virus vacc ine, unspecified formulation Rema Gonzalez PA-C Work Phone: [facility] Work Phone: 01-26-2009 diphtheria, tetanus toxoids and acellular pertussis vaccine Rema Gonzalez PA-C Work Phone: [facility] Work Phone: 01-26-2009 measles, mumps and rubella virus vaccine Rema Gonzalez PA-C Work Phone: [facility] Work Phone: 01-26-2009 poliovirus vaccine, inactivated Remaaleksey Baltazarkassie PA-C Work Phone: [facility] Work Phone: 01-26-2009 varicella virus vaccine Remaaleksey Baltazarkassie PA-C Work Phone: [facility] Work Phone: 03-10-2008 influenza virus vacc ine, live, attenuated, for intranasal use Remaaleksey Baltazarkassie PA-C Work Phone: [facility] Work Phone: 04-03-2007 influenza virus vacc ine, unspecified formulation Remaaleksey Gonzalez PA-C Work Phone: [facility] 06-29-2006 influenza virus vacc ine, unspecified formulation Remaaleksey Gonzalez PA-C Work Phone: [facility] Work Phone: 04-10-2006 influenza virus vacc ine, unspecified formulation Remaaleksey Baltazarkassie PA-C Work Phone: [facility] Work Phone: 03-09-2005 measles, mumps and rubella virus vaccine Rema Baltazary PA-C Work Phone: [facility] Work Phone: 03-09-2005 pneumococcal conjuga te vaccine, 7 valent Rema Delaneykassie PA-C Work Phone: [facility] Work Phone: 2004 hepatitis B vaccine, pediatric or pediatric/adolescent dosage Rema Delaneykassie PA-C Work Phone: [facility] Work Phone: 2004 varicella virus vaccine Rema Gonzalez PA-C Work Phone: [facility] Work Phone: 06-10-2004 diphtheria, tetanus toxoids and acellular pertussis vaccine Rema Baltazary PA-C Work Phone: [facility] Work Phone: 06-10-2004 haemophilus influenz ae type b vaccine, HbOC conjugate Rema Baltazary PA-C Work Phone: [facility] Work Phone: 06-10-2004 pneumococcal conjuga te vaccine, 7 valent Rema Athy PA-C Work Phone: [facility] Work Phone: 06-10-2004 poliovirus vaccine, inactivated Rema Athy PA-C Work Phone: [facility] Work Phone: 03-26-2004 diphtheria, tetanus toxoids and acellular pertussis vaccine Rema Baltazary PA-C Work Phone: [facility] Work Phone: 03-26-2004 haemophilus influenz ae type b vaccine, HbOC conjugate Rema Athy PA-C Work Phone: [facility] Work Phone: 03-26-2004 pneumococcal conjuga te vaccine, 7 valent Rema Athy PA-C Work Phone: [facility] Work Phone: 03-26-2004 poliovirus vaccine, inactivated Rema Athy PA-C Work Phone: [facility] Work Phone: 01-30-2004 DTaP-hepatitis B and poliovirus vaccine Rema Athy PA-C Work Phone: [facility] Work Phone: 01-30-2004 haemophilus influenz ae type b vaccine, HbOC conjugate Rema Athy PA-C Work Phone: [facility] Work Phone: 01-30-2004 pneumococcal conjuga te vaccine, 7 valent Rema Gonzalez PA-C Work Phone: [facility] Work Phone: 2003 hepatitis B vaccine, pediatric or pediatric/adolescent dosage Rema Gonzalez PA-C Work Phone: [facility] Work Phone: Payers Date Payer Category Payer Self-pay [id number] 2013 Medicaid [employer] [facility] [id number] 2013-Present [phone] [address] [place] [address] Medicaid [id number] 2013 Medicaid [id number] 2013 Unknown [employer] [id number] 2013 Unknown [id number] Unknown [id number] Social History Date Type Detail Facility Start: 11-05-2020 End: 04-26-2022 Tobacco smoking status NDIS Never smoker [employer] Work Phone: Start: 11-05-2020 End: 04-26-2022 Tobacco use and exposure [facility] Start: 11-05-2020 End: 06-13-2024 Alcohol intake Current non-drinker of alcohol (finding) [employer] Work Phone: Start: 2003 Sex Assigned At Not on file [employer] Work Phone: Start: 09-10-2021 End: 04-26-2022 Exposure to SARS-CoV-2 (event) Not sure [facility] Sex Assigned At [facility] Start: 04-23-2010 End: 04-26-2022 Tobacco Comment g-parents and mom smoke outside, paternal g-parents and dad smoke inside [facility] History of tobacco use Passive smoker [facility] Work Phone: Start: 08-25-2022 End: 01-02-2023 Tobacco smoking status NHIS Unknown if ever smoked [facility] Start: 08-24-[address] [facility] Start: 2003 Sex Assigned At Female [facility] Start: 09-26-2022 End: 03-25-2024 History of Social function [facility] Start: 09-26-2022 End: 03-25-2024 Tobacco use panel [facility] National Score (1-100), lower number is lower risk 63 [facility] NEGATED: Highlighted row [facility] Medical Equipment Procedure Code Equipment Code Equipment Origin al Text Equipment Identifier Dates Removal, external fixation device DISTAL PLATE 4 HOLE FDA Start: 12-15-2022 Removal, external fixation device [id number] FDA Start: 12-15-2022 Removal, external fixation device ([id number]) ()[id number] FDA Start: 12-15-2022 Removal, external fixation device ([id number]) ()[id number] FDA Start: 12-15-2022 Removal, external fixation device ()[id number] FDA Start: 12-15-2022 Removal, external fixation device ()[id number] FDA Start: 12-15-2022 Removal, external fixation device ([id number]) ()[id number] FDA Start: 12-15-2022 Removal, external fixation device ([id number]) ()[id number] FDA Start: 12-15-2022 Removal, external fixation device ([id number]) ()[id number] FDA Start: 12-15-2022 Removal, external fixation device ()[id number] FDA Start: 12-15-2022 Removal, external fixation device ()[id number] FDA Start: 12-15-2022 Removal, external fixation device DISTAL PLATE 4 HOLE FDA Start: 12-15-2022 Removal, external fixation device DISTAL PLATE 4 HOLE FDA Start: 12-15-2022 ([id number]) External orthopa edic fixation system, reusable ()[id number] FDA Start: 12-07-2022 ([id number]) Orthopaedic bone pin, non-bioabsorbable ()[id number] FDA Start: 12-07-2022 ([id number]) Orthopaedic bone pin, non-bioabsorbable ()[id number] FDA Start: 12-07-2022 ([id number]) External orthopa edic fixation system, reusable ()[id number] FDA Start: 12-07-2022 ([id number]) External orthopa edic fixation system, reusable ()[id number] FDA Start: 12-07-2022 Goals Date Patient Goal Desired Activity /State Functional Status Date Assessment Result Facility 05-19-2014 Are you deaf, or do you have serious difficulty hearing No 05/19/2014 3:43 PM Theresa Alcala RN No [facility] 05-19-2014 Are you blind, or do you have serious difficulty seeing, even when wearing glasses No 05/19/2014 3:43 PM Theresa Alcala RN No [facility] 05-19-2014 Do you have serious difficulty walking or climbing stairs No 05/19/2014 3:43 PM Theresa Alcala RN No [facility] 05-19-2014 Do you have difficul ty dressing or bathing No 05/19/2014 3:43 PM Theresa Alcala RN No [facility] Mental Status Date Assessment Result Facility 12-15-2022 Cognitive function Level Of Cons ciousness Sedated [facility] Work Phone: 12-15-2022 Cognitive function Voice/Name [facility] Work Phone: 12-07-2022 Cognitive function Voice/Name [facility] Work Phone: 05-19-2014 Because of a physica l, mental, or emotional condition, do you have serious difficulty concentrating, remembering, or making decisions No 05/19/2014 3:43 PM Theresa Alcala RN No [facility] Clinical Notes 11-05-2020 to 09-14-2024 Telephone Encounter - Austin Muniz RN - 09/14/2024 8:20 AM EDTTelephone Encounter - Austin Muniz RN - 09/14/2024 8:20 AM EDTTelephone Encounter - Kati Hernadez MD - 09/13/2024 6:08 PM EDT Note Date & Type Note Facility 09-14-2024 Telephone encounter Note Family aware. Austin Muniz RN [facility] 09-14-2024 Miscellaneous Notes Family aware. Austin Muniz RN PCP is out of the office, I would prefer to get his opinion but I realize she may need this medication now. I think he would be ok with a one time fill, but this is not something we typically manage. Patient's request for medication is as follows: Requested Prescriptions Signed Prescriptions Disp Refills ZAFEMY 150-35 mcg/24 hr patch 4 patch 0 Sig: Apply 1 patch as directed one time a week for 28 days. Authorizing Provider: KATI HERNADEZ Prescription(s) as above. Please process accordingly. Kati Hernadez MD Mother calling to report that was seeing Dr. 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 Has appointment with our WASTE PAPER HAMMERMILL OPERATOR scheduled but is out of birthcontrol. Wondering if we would call in until the scheduled appointment which is 10/07/2024. Austin Muniz RN documented in this encounter [facility] 09-13-2024 Telephone encounter Note PCP is out of the office, I would prefer to get his opinion but I realize she may need this medication now. I think he would be ok with a one time fill, but this is not something we typically manage. Patient's request for medication is as follows: Requested Prescriptions Signed Prescriptions Disp Refills ZAFEMY 150-35 mcg/24 hr patch 4 patch 0 Sig: Apply 1 patch as directed one time a week for 28 days. Authorizing Provider: KATI HERNADEZ Prescription(s) as above. Please process accordingly. Kati Hernadez MD [facility] 09-13-2024 Telephone encounter Note Mother calling to report that was seeing Dr. 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 Has appointment with our WASTE PAPER HAMMERMILL OPERATOR scheduled but is out of birthcontrol. Wondering if we would call in until the scheduled appointment which is 10/07/2024. Austin Muniz RN [facility] 06-13-2024 Note HNO ID: [id number] Author: SIMONE FABIAN APRN.CHILDCARE TEACHER Service: ? Author Type: Nurse Practitioner Type: Progress Notes Filed: 06/13/2024 19:02 Note Text: Subjective HPI Nontoxic-appearing female presents urgent care chief complaint rash. Duration of symptoms a week and a half. Associated symptoms rash on chest arms axillary region and inner thighs. Rash is pruritic at times. Not painful. Lotrimin OTC medication no success. Denies any fevers nausea vomiting abdominal pain change in bowel or bladder habits. Is not . Is not breast-feeding. Past medical history prescription medications allergies reviewed. BP 107/66 Pulse 71 Temp 37.1 ?C (98.8 ?F) Resp 18 Wt 49.8 kg (109 lb 12.6 oz) LMP 02/19/2024 (Approximate) SpO2 99% BMI 19.14 kg/m? .Patient presents with: Rash: Possible ringworm on chest, arms, armpits, inner legs x1.5 weeks PAST MEDICAL HISTORY Diagnosis Date Allergic rhinitis Nasal bones, closed fracture PMH - PAST MEDICAL HISTORY OF 01/26/09 normal color vision PAST SURGICAL HISTORY Procedure Laterality Date REPAIR OF NOSE FRACTURE 11/2015 SEPTOPLASTY 11/05/2020 TONSILLECTOMY AND ADENOIDECTOMY ALLERGIES Bees, Cats, Dogs, Dust Mites, and Seasonal Allergies MEDICATIONS sertraline (ZOLOFT) 50 mg tablet Take 1 tablet by mouth once daily. cloNIDine HCl (CATAPRES) 0.1 mg tablet Take 1 tablet by mouth at bedtime as needed. ondansetron orally disintegrating (ZOFRAN ODT) 4 mg disintegrating tablet Take 1 tablet by mouth every 8 hours as needed for nausea/vomiting. etonogestrel (NEXPLANON) subdermal implant 68 mg 68 mg by SUBDERMAL route. FAMILY HISTORY Problem Relation Age of Onset Diabetes Maternal Grandmother maternal cousin- type I other (arrthymia) Maternal Grandmother 55 stents (smoker) Social History Tobacco Use Smoking status: Never Passive exposure: Yes Smokeless tobacco: Never Tobacco comments: g-parents and mom smoke outside, paternal g-parents and dad smoke inside Vaping Use Vaping status: Never Used Substance Use Topics Alcohol use: No Drug use: No Review of Systems Constitutional: Negative for chills, fever and malaise/fatigue. HENT: Negative for congestion, ear discharge, ear pain, sinus pain and sore throat. Eyes: Negative for blurred vision, pain, discharge and redness. Respiratory: Negative for cough, hemoptysis, sputum production, shortness of breath, wheezing and stridor. Cardiovascular: Negative for chest pain. Gastrointestinal: Negative for abdominal pain, diarrhea, nausea and vomiting. Musculoskeletal: Negative for myalgias. Skin: Positive for itching and rash. Neurological: Negative for dizziness and headaches. Objective Physical Exam Constitutional: General: She is not in acute distress. Appearance: She is not diaphoretic. HENT: Head: Normocephalic. Jaw: No trismus, tenderness, swelling or pain on movement. Mouth/Throat: Mouth: Mucous membranes are moist. Pharynx: Oropharynx is clear. Uvula midline. No pharyngeal swelling, oropharyngeal exudate, posterior oropharyngeal erythema or uvula swelling. Eyes: Conjunctiva/sclera: Conjunctivae normal. Pupils: Pupils are equal, round, and reactive to light. Cardiovascular: Rate and Rhythm: Normal rate and regular rhythm. Heart sounds: Normal heart sounds. Pulmonary: Effort: Pulmonary effort is normal. No tachypnea, accessory muscle usage or respiratory distress. Breath sounds: Normal breath sounds. No stridor. No wheezing, rhonchi or rales. Abdominal: General: There is no distension. Palpations: Abdomen is soft. Tenderness: There is no abdominal tenderness. There is no guarding or rebound. Musculoskeletal: Cervical back: Normal range of motion and neck supple. No edema, erythema, rigidity or tenderness. No pain with movement. Normal range of motion. Lymphadenopathy: Cervical: No cervical adenopathy. Skin: General: Skin is warm and dry. Comments: Oval salmon-colored lesion noted over thoracic area. Sporadic macular papular rash is noted on trunk a few rash noted on legs to highlighted area. Rash is blanching. Spares mucosal membrane. No adenopathy. Neurological: Mental Status: She is alert and oriented to person, place, and time. ASSESSMENT/PLAN: 1. Rash - ICD9: 782.1, ICD10: R21 Diagnosis rash. Suspicious of inverse pityriasis rosea. Patient was educated on supportive therapies. Patient will follow up with primary care provider as needed. Patient was instructed to immediately proceed to emergency room for any new, worsening, or symptoms lasting longer than anticipated. The patient's clinical presentation is otherwise unremarkable at this time. Based on exam and clinical finding, the patient is stable for discharge. Plan of care was discussed with patient. Patient verbalizes understanding and agrees to plan of care. This note was generated using Slantrange software. It may contain errors in wording, (more content not included)... [facility] 06-13-2024 History of Presen t illness Narrative Images from the original note were not included. Subjective HPI Nontoxic-appearing female presents urgent care chief complaint rash. Duration of symptoms a week and a half. Associated symptoms rash on chest arms axillary region and inner thighs. Rash is pruritic at times. Not painful. Lotrimin OTC medication no success. Denies any fevers nausea vomiting abdominal pain change in bowel or bladder habits. Is not . Is not breast-feeding. Past medical history prescription medications allergies reviewed. BP 107/66 Pulse 71 Temp 37.1 C (98.8 F) Resp 18 Wt 49.8 kg (109 lb 12.6 oz) LMP 02/19/2024 (Approximate) SpO2 99% BMI 19.14 kg/m .Patient presents with: Rash: Possible ringworm on chest, arms, armpits, inner legs x1.5 weeks PAST MEDICAL HISTORY Diagnosis Date Allergic rhinitis Nasal bones, closed fracture PMH - PAST MEDICAL HISTORY OF 01/26/09 normal color vision PAST SURGICAL HISTORY Procedure Laterality Date REPAIR OF NOSE FRACTURE 11/2015 SEPTOPLASTY 11/05/2020 TONSILLECTOMY & ADENOIDECTOMY <AGE 12 11/09/2011 ALLERGIES Bees, Cats, Dogs, Dust Mites, and Seasonal Allergies MEDICATIONS sertraline (ZOLOFT) 50 mg tablet Take 1 tablet by mouth once daily. cloNIDine HCl (CATAPRES) 0.1 mg tablet Take 1 tablet by mouth at bedtime as needed. ondansetron orally disintegrating (ZOFRAN ODT) 4 mg disintegrating tablet Take 1 tablet by mouth every 8 hours as needed for nausea/vomiting. etonogestrel (NEXPLANON) subdermal implant 68 mg 68 mg by SUBDERMAL route. FAMILY HISTORY Problem Relation Age of Onset Diabetes Maternal Grandmother maternal cousin- type I other (arrthymia) Maternal Grandmother 55 stents (smoker) Social History Tobacco Use Smoking status: Never Passive exposure: Yes Smokeless tobacco: Never Tobacco comments: g-parents and mom smoke outside, paternal g-parents and dad smoke inside Vaping Use Vaping status: Never Used Substance Use Topics Alcohol use: No Drug use: No Review of Systems Constitutional: Negative for chills, fever and malaise/fatigue. HENT: Negative for congestion, ear discharge, ear pain, sinus pain and sore throat. Eyes: Negative for blurred vision, pain, discharge and redness. Respiratory: Negative for cough, hemoptysis, sputum production, shortness of breath, wheezing and stridor. Cardiovascular: Negative for chest pain. Gastrointestinal: Negative for abdominal pain, diarrhea, nausea and vomiting. Musculoskeletal: Negative for myalgias. Skin: Positive for itching and rash. Neurological: Negative for dizziness and headaches. Objective Physical Exam Constitutional: General: She is not in acute distress. Appearance: She is not diaphoretic. HENT: Head: Normocephalic. Jaw: No trismus, tenderness, swelling or pain on movement. Mouth/Throat: Mouth: Mucous membranes are moist. Pharynx: Oropharynx is clear. Uvula midline. No pharyngeal swelling, oropharyngeal exudate, posterior oropharyngeal erythema or uvula swelling. Eyes: Conjunctiva/sclera: Conjunctivae normal. Pupils: Pupils are equal, round, and reactive to light. Cardiovascular: Rate and Rhythm: Normal rate and regular rhythm. Heart sounds: Normal heart sounds. Pulmonary: Effort: Pulmonary effort is normal. No tachypnea, accessory muscle usage or respiratory distress. Breath sounds: Normal breath sounds. No stridor. No wheezing, rhonchi or rales. Abdominal: General: There is no distension. Palpations: Abdomen is soft. Tenderness: There is no abdominal tenderness. There is no guarding or rebound. Musculoskeletal: Cervical back: Normal range of motion and neck supple. No edema, erythema, rigidity or tenderness. No pain with movement. Normal range of motion. Lymphadenopathy: Cervical: No cervical adenopathy. Skin: General: Skin is warm and dry. Comments: Oval salmon-colored lesion noted over thoracic area. Sporadic macular papular rash is noted on trunk a few rash noted on legs to highlighted area. Rash is blanching. Spares mucosal membrane. No adenopathy. Neurological: Mental Status: She is alert and oriented to person, place, and time. ASSESSMENT/PLAN: 1. Rash - ICD9: 782.1, ICD10: R21 Diagnosis rash. Suspicious of inverse pityriasis rosea. Patient was educated on supportive therapies. Patient will follow up with primary care provider as needed. Patient was instructed to immediately proceed to emergency room for any new, worsening, or symptoms lasting longer than anticipated. The patient's clinical presentation is otherwise unremarkable at this time. Based on exam and clinical finding, the patient is stable for discharge. Plan of care was discussed with patient. Patient verbalizes understanding and agrees to plan of care. This note was generated using Slantrange software. It may contain errors in wording, punctuation, or spelling. Simone Fabian APRN.CHILDCARE TEACHER documented in this encounter [facility] 03-25-2024 Instructions Curry Worley MD - 03/25/2024 1:47 PM EDT Pediatric Behavioral Health Providers - [facility] This list does not represent endorsement of any practice by [facility] hotline [phone] [place] [phone] [place] [phone] [place] [phone] [place] [phone] [place] [phone] [email or web address] Debbie Yanirao [place] [phone] [place] [phone] [place] [phone] https://Medical Cann[employer] Payment [email or web address] [email or web address]/ [employer] [address] [facility] [phone] [email or web address]/ [employer] [place] [phone] [place] [phone] [email or web address] [facility] [address] [place] [phone] [email or web address] [facility] Multiple locations [phone] [email or web address] [facility] [place] [phone] [place] [phone] [place] [phone] [place] [phone] [email or web address]/ [email or web address] [facility] [place] [phone] [address] [facility] [phone] [email or web address] [facility] [place] [address], [place] [phone] [facility] [address], [place] [phone] Please contact your insurance company for covered behavioral health services and providers. You may also locate mental health providers in your area by using these websites: https://www.psychologytoday.com /us/therapists/ https://findtreatment.gov/ https://effectivechildtherapy.o rg/tips-tools/haxpzr-b-ovrbkkps yamw-tixw-fsm/ documented in this encounter [facility] 03-25-2024 Note HNO ID: [id number] Author: CURRY WORLEY MD Service: ? Author Type: Physician Type: Progress Notes Filed: 03/25/2024 14:32 Note Text: PEDIATRIC FOLLOW UP VISIT Sugar Ferreira is a 18 year old female who presents with anxiety, insomnia, and anhedonia for follow up visit accompanied by her self. Currently taking Sertraline 50 mg since 10/19. The medication is helping dramatically with apettitie, nausea, sleep, anxiety, restlessness. stopped meds about a month ago. (ran out) History was obtained from: patient Current symptoms: low energy, loss of interest, and anxiety Sleep continues to be a concern even when taking medication. getting 3-4 hours of sleep a night. Was waking at night as well ( but better on meds) tried melatonin-no help warm milk. antihistamines, no help no ETOH, no THC has limited screen time white noise mind has 17 tabs open- music, what if's counseling: looking for counselor. having trouble meeting schedule. (only has 1 day off a week from work or school) Severity of Symptoms: moderate Context: home, school, and work SH: living with Boyfriend in [place] now PAST MEDICAL HISTORY Diagnosis Date Allergic rhinitis Nasal bones, closed fracture PMH - PAST MEDICAL HISTORY OF 01/26/09 normal color vision ROS for medication side effects: Abdominal pain: no Appetite problems: no Drowsiness: no Sleep problems: no Headaches: no Depression: no Suicidal ideation: no Agitation: no Yvette: no Tremors: no Weight change: no ADDITIONAL CONCERNS: Right ankle injury- Surgical Services Asst is recommencing repeat surgery PHYSICAL EXAM: BP 98/60 Pulse 72 Temp 36.7 ?C (98 ?F) (Temporal Artery) Resp 20 Wt 50.2 kg (110 lb 10.7 oz) LMP 02/19/2024 (Approximate) BMI 19.30 kg/m? Blood pressure %shantel are not available for patients who are 18 years or older. General: Well developed, No acute distress, anxious and fidgety Neck: supple and no adenopathy Lungs: clear to auscultation bilaterally, good air exchange, no retractions Heart: Normal rate, regular rhythm, no murmur Abdomen: Soft, nontender, nondistended, no palpable organomegaly or masses, normal bowel sounds Skin: Normal color, texture and turgor. No rashes. ASSESSMENT AND PLAN: Encounter Diagnosis ICD-10-CM 1. MARIA DE JESUS (generalized anxiety disorder) F41.1 18 year old female with anxiety with some depressive symptoms without optimization of symptoms but improvement on medication that she was taking and without significant medication side effects. Based on PHQ-9 Score: 14 and interview, presentation is consistent with possible depression: -Continue current medications -Referred to psychology/behavioral health provider. MARIA DE JESUS-7: 16 - Continue current medication-restart Zoloft 50 mg daily. - Psychology referral for depression and anxiety I will add clonidine 0.1 mg as needed for sleep at nighttime follow up 1 month Once stabilized I did talk about transition to adult primary care Curry Worley MD [facility] 03-25-2024 History of Presen t illness Narrative PEDIATRIC FOLLOW UP VISIT Sugar Ferreira is a 18 year old female who presents with anxiety, insomnia, and anhedonia for follow up visit accompanied by her self. Currently taking Sertraline 50 mg since 10/19. The medication is helping dramatically with apettitie, nausea, sleep, anxiety, restlessness. stopped meds about a month ago. (ran out) History was obtained from: patient Current symptoms: low energy, loss of interest, and anxiety Sleep continues to be a concern even when taking medication. getting 3-4 hours of sleep a night. Was waking at night as well ( but better on meds) tried melatonin-no help warm milk. antihistamines, no help no ETOH, no THC has limited screen time white noise mind has 17 tabs open- music, what if's counseling: looking for counselor. having trouble meeting schedule. (only has 1 day off a week from work or school) Severity of Symptoms: moderate Context: home, school, and work SH: living with Boyfriend in [place] now PAST MEDICAL HISTORY Diagnosis Date Allergic rhinitis Nasal bones, closed fracture PMH - PAST MEDICAL HISTORY OF 01/26/09 normal color vision ROS for medication side effects: Abdominal pain: no Appetite problems: no Drowsiness: no Sleep problems: no Headaches: no Depression: no Suicidal ideation: no Agitation: no Yvette: no Tremors: no Weight change: no ADDITIONAL CONCERNS: Right ankle injury- Surgical Services Asst is recommencing repeat surgery PHYSICAL EXAM: BP 98/60 Pulse 72 Temp 36.7 C (98 F) (Temporal Artery) Resp 20 Wt 50.2 kg (110 lb 10.7 oz) LMP 02/19/2024 (Approximate) BMI 19.30 kg/m Blood pressure %shantel are not available for patients who are 18 years or older. General: Well developed, No acute distress, anxious and fidgety Neck: supple and no adenopathy Lungs: clear to auscultation bilaterally, good air exchange, no retractions Heart: Normal rate, regular rhythm, no murmur Abdomen: Soft, nontender, nondistended, no palpable organomegaly or masses, normal bowel sounds Skin: Normal color, texture and turgor. No rashes. ASSESSMENT & PLAN: Encounter Diagnosis ICD-10-CM 1. MARIA DE JESUS (generalized anxiety disorder) F41.1 18 year old female with anxiety with some depressive symptoms without optimization of symptoms but improvement on medication that she was taking and without significant medication side effects. Based on PHQ-9 Score: 14 and interview, presentation is consistent with possible depression: -Continue current medications -Referred to psychology/behavioral health provider. MARIA DE JESUS-7: 16 - Continue current medication-restart Zoloft 50 mg daily. - Psychology referral for depression and anxiety I will add clonidine 0.1 mg as needed for sleep at nighttime follow up 1 month Once stabilized I did talk about transition to adult primary care Curry Worley MD documented in this encounter [facility] 11-03-2023 Telephone encounter Note The following approved medication requests have been transmitted electronically. Requested Prescriptions Pending Prescriptions Disp Refills sertraline (ZOLOFT) 50 mg tablet [Pharmacy Med Name: SERTRALINE HCL 50 MG TABLET] 90 tablet 0 Sig: TAKE 1 TABLET BY MOUTH EVERY DAY Curry Worley MD [facility] 11-03-2023 Miscellaneous Notes The following approved medication requests have been transmitted electronically. Requested Prescriptions Pending Prescriptions Disp Refills sertraline (ZOLOFT) 50 mg tablet [Pharmacy Med Name: SERTRALINE HCL 50 MG TABLET] 90 tablet 0 Sig: TAKE 1 TABLET BY MOUTH EVERY DAY Curry Worley MD last ordered 10/12/23 # 30 with 3 refills, requesting 90 day for remainder documented in this encounter [facility] 11-03-2023 Telephone encounter Note last ordered 10/12/23 # 30 with 3 refills, requesting 90 day for remainder [facility] 10-12-2023 Instructions Curry Worley MD - 10/12/2023 3:11 PM EDT Pediatric Behavioral Health Providers - [facility] This list does not represent endorsement of any practice by [facility] We understand that your child is struggling and want you to find a helpful, supportive therapist that can guide you and your child to a healthier, happier life. Please know, at any time: If you need urgent mental health support, you can call or text [employer] on your phone [email or web address] You may also contact the Crisis Text Line by texting HOME to 678941 [facility] Crisis hotline [phone] [place] [phone] [place] [phone] [place] [phone] [place] [phone] [place] [phone] [email or web address] Debbie Gayle [place] [phone] [place] [phone] [place] [phone] [email or web address] [place] [phone] [place] [phone] [email or web address] [facility] Multiple locations [phone] [email or web address] [facility] [address] [place] [phone] Please contact your insurance company for covered behavioral health services and providers. You may also locate mental health providers in your area by using these websites: https://www.psychologyLamsa.Zopa /us/therapists/ https://findtreatment.gov/ https://effectivechildtherapy.o rg/tips-tools/fzohgg-y-xfypzirj zgls-osrk-cnf/ documented in this encounter [facility] 10-12-2023 Note HNO ID: [id number] Author: CURRY WORLEY MD Service: ? Author Type: Physician Type: Progress Notes Filed: 10/12/2023 17:15 Note Text: PEDIATRIC INITIAL VISIT HISTORY OF PRESENT ILLNESS: Sugar is a 17 year old female presenting with concerns regarding depressed mood and anxiety Developed sx since having leg surgery Last November- Broke tibia and needed internal fixation. Depression set in with inactivity History was obtained from: patient Is the patient currently in treatment? No. Future appointment scheduled: No- looking for a therapist. Recent changes or stressors at home or school? Yes She has felt this way for the past 10 months with depression. Anxiety may have been prior but worsened last 10 month She was taking Zoloft for anxiety in 2020 PSYCHIATRIC REVIEW OF SYMPTOMS: Depression: Increased irritability Sad mood or feeling "empty" Functionally impairing anhedonia appetite with mood changes Changes to sleeping pattern Excessive and inappropriate guilt Lowering of self esteem or self efficacy Diminished energy and impairing fatigue Worsening of the ability to concentrate or is increasingly indecisive Suicidal ideation/intent: None Increase in crying episodes Generalized Anxiety: Excessive worry Difficulty controlling worry Restless and fidgety due to anxiety Fatigued due to stress Trouble concentrating due to recurrent anxiety driven thoughts Muscle tension secondary to stress Sleep disturbance secondary to anxiety Separation Anxiety: Distress when from home or parents Worry about losing or harm befalling parents Trauma induced anxiety: Older brother passes away 2018- does not feel she processed it , younger brother had a car accident Panic Disorder: Endorses the following panic attack symptoms at work: tachycardia, palpitations, sweating , trembling, shaking, nausea and vomiting, dizzy/faint, and avoidant behavior Having somatic symptoms, Blurry vision, dizziness SLEEP: -increased sleeping SOCIAL HISTORY: Patient lives with boyfriend. 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 Yes, anxiety -Has the patient received prior out patient mental care? Yes, -Previous psychiatric medication trials: Yes, prozac not a good fit, zoloft was helpful last in 2019 -Has there been a history of significant or chronic self injury? No -Have there been any previous suicide attempts? Patient denies previous suicide attempts PERTINENT FAMILY HISTORY: FAMILY HISTORY Problem Relation Age of Onset Diabetes Maternal Grandmother maternal cousin- type I other (arrthymia) Maternal Grandmother 55 stents (smoker) Anxiety: Yes, , brother, dad, mom (not dx) Depression: Yes, Dad Schizophrenia: No ADD/ADHD: No ADDITIONAL CONCERNS: None MEDICAL HISTORY: PAST MEDICAL HISTORY Diagnosis Date Allergic rhinitis Nasal bones, closed fracture PMH - PAST MEDICAL HISTORY OF 01/26/09 normal color vision OBJECTIVE PHYSICAL EXAM: BP 100/60 Pulse 88 Temp 37.3 ?C (99.2 ?F) (Temporal Artery) Resp 20 Ht 161.3 cm (5' 3.5") Wt 48.9 kg (107 lb 11.2 oz) LMP 05/03/2019 BMI 18.78 kg/m? Blood pressure %shantel are not available for patients who are 18 years or older. General: Well developed, No acute distress Appearance: well dressed well groomed Behavior: agitated Speech: fluent and coherent Affect: anxious Neck: supple and no adenopathy Lungs: clear to auscultation bilaterally, good air exchange, no retractions Heart: Normal rate, regular rhythm, no murmur Abdomen: Soft, nontender, nondistended, no palpable organomegaly or masses, normal bowel sounds Skin: Normal color, texture and turgor. No rashes. Neuro: normal strength and tone, no gross motor deficits ASSESSMENT AND PLAN: Encounter Diagnosis ICD-10-CM 1. MARIA DE JESUS (generalized anxiety disorder) F41.1 2. Adjustment disorder with depressed mood F43.21 Based on PHQ-A Score: 17 (recommended cut off score is 11) and interview, presentation is consistent with diagnosis of depression: -Start pharmacotherapy as outlined -Referred to psychology/behavioral health provider -I gave a list of local resources for her to reach out to. . Based on MARIA DE JESUS-7 Score: 20 and interview, presentation is consistent with anxiety: -Plan as above . - Reviewed risks and benefits of medcations including black box warning - Patient to call if experiencing undesirable side effects - Follow up in 4 weeks Curry Worley MD [facility] 10-12-2023 History of Presen t illness Narrative PEDIATRIC INITIAL VISIT HISTORY OF PRESENT ILLNESS: Sugar is a 17 year old female presenting with concerns regarding depressed mood and anxiety Developed sx since having leg surgery Last November- Broke tibia and needed internal fixation. Depression set in with inactivity History was obtained from: patient Is the patient currently in treatment? No. Future appointment scheduled: No- looking for a therapist. Recent changes or stressors at home or school? Yes She has felt this way for the past 10 months with depression. Anxiety may have been prior but worsened last 10 month She was taking Zoloft for anxiety in 2020 PSYCHIATRIC REVIEW OF SYMPTOMS: Depression: Increased irritability Sad mood or feeling "empty" Functionally impairing anhedonia appetite with mood changes Changes to sleeping pattern Excessive and inappropriate guilt Lowering of self esteem or self efficacy Diminished energy and impairing fatigue Worsening of the ability to concentrate or is increasingly indecisive Suicidal ideation/intent: None Increase in crying episodes Generalized Anxiety: Excessive worry Difficulty controlling worry Restless and fidgety due to anxiety Fatigued due to stress Trouble concentrating due to recurrent anxiety driven thoughts Muscle tension secondary to stress Sleep disturbance secondary to anxiety Separation Anxiety: Distress when from home or parents Worry about losing or harm befalling parents Trauma induced anxiety: Older brother passes away 2017- does not feel she processed it , younger brother had a car accident Panic Disorder: Endorses the following panic attack symptoms at work: tachycardia, palpitations, sweating , trembling, shaking, nausea and vomiting, dizzy/faint, and avoidant behavior Having somatic symptoms, Blurry vision, dizziness SLEEP: -increased sleeping SOCIAL HISTORY: Patient lives with boyfriend. 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 Yes, anxiety -Has the patient received prior out patient mental care? Yes, -Previous psychiatric medication trials: Yes, prozac not a good fit, zoloft was helpful last in 2019 -Has there been a history of significant or chronic self injury? No -Have there been any previous suicide attempts? Patient denies previous suicide attempts PERTINENT FAMILY HISTORY: FAMILY HISTORY Problem Relation Age of Onset Diabetes Maternal Grandmother maternal cousin- type I other (arrthymia) Maternal Grandmother 55 stents (smoker) Anxiety: Yes, , brother, dad, mom (not dx) Depression: Yes, Dad Schizophrenia: No ADD/ADHD: No ADDITIONAL CONCERNS: None MEDICAL HISTORY: PAST MEDICAL HISTORY Diagnosis Date Allergic rhinitis Nasal bones, closed fracture PMH - PAST MEDICAL HISTORY OF 01/26/09 normal color vision OBJECTIVE PHYSICAL EXAM: BP 100/60 Pulse 88 Temp 37.3 C (99.2 F) (Temporal Artery) Resp 20 Ht 161.3 cm (5' 3.5") Wt 48.9 kg (107 lb 11.2 oz) LMP 05/03/2019 BMI 18.78 kg/m Blood pressure %shantel are not available for patients who are 18 years or older. General: Well developed, No acute distress Appearance: well dressed well groomed Behavior: agitated Speech: fluent and coherent Affect: anxious Neck: supple and no adenopathy Lungs: clear to auscultation bilaterally, good air exchange, no retractions Heart: Normal rate, regular rhythm, no murmur Abdomen: Soft, nontender, nondistended, no palpable organomegaly or masses, normal bowel sounds Skin: Normal color, texture and turgor. No rashes. Neuro: normal strength and tone, no gross motor deficits ASSESSMENT & PLAN: Encounter Diagnosis ICD-10-CM 1. MARIA DE JESUS (generalized anxiety disorder) F41.1 2. Adjustment disorder with depressed mood F43.21 Based on PHQ-A Score: 17 (recommended cut off score is 11) and interview, presentation is consistent with diagnosis of depression: -Start pharmacotherapy as outlined -Referred to psychology/behavioral health provider -I gave a list of local resources for her to reach out to. . Based on MARIA DE JESUS-7 Score: 20 and interview, presentation is consistent with anxiety: -Plan as above . - Reviewed risks and benefits of medcations including black box warning - Patient to call if experiencing undesirable side effects - Follow up in 4 weeks Curry Worley MD documented in this encounter [facility] 06-18-2023 Miscellaneous Notes PATIENT CALLED BACK AND WAS RELAYED THE BELOW INFORMATION AND STATED UNDERSTANDING Chalo Massey Pss Left message for patient to return call. Francy Loaiza LPN Negative for COVID and flu documented in this encounter [facility] 06-17-2023 Note HNO ID: [id number] Author: SIMONE FABIAN APRN.CHILDCARE TEACHER Service: ? Author Type: Nurse Practitioner Type: Progress Notes Filed: 06/17/2023 12:44 Note Text: Subjective HPI Patient presents to urgent care with chief complaint of fever and cough. Duration of symptoms 18 hrs. Associated symptoms with today's chief complaint are on and off headache, vomiting, muscle aches, fatigue, nonproductive cough, and fever. Patient stated symptoms started abruptly. Patient states they have used [id number] medication with some success. Patient states significant other had similar signs and symptoms. Patient denies any pain at this time. Patient denies any visual changes, visual disturbance, shortness of breath, rash, exercise intolerance, pleuritic pain, productive cough, abdominal pain, nausea, vomiting, chest pain, or change in bowel or bladder habits. Denies chance of . Is not breast-feeding. Past medical history prescription medications allergies reviewed. .Patient presents with: Flu Like Symptoms: X 18 hr PAST MEDICAL HISTORY Diagnosis Date Allergic rhinitis Nasal bones, closed fracture PMH - PAST MEDICAL HISTORY OF 01/26/09 normal color vision PAST SURGICAL HISTORY Procedure Laterality Date REPAIR OF NOSE FRACTURE 11/2015 SEPTOPLASTY 11/05/2020 TONSILLECTOMY AND ADENOIDECTOMY ALLERGIES Bees, Cats, Dogs, Dust Mites, and Seasonal Allergies MEDICATIONS etonogestrel (NEXPLANON) subdermal implant 68 mg 68 mg by SUBDERMAL route. COVID-19 antigen test ([employer] COVID-19 RAPID AT-HOME) kit 1 Each as directed. (Patient not taking: Reported on 09/26/2022) albuterol HFA (PROVENTIL HFA, VENTOLIN HFA) 90 mcg/actuation inhaler INHALE 2 PUFFS BY MOUTH EVERY 6 HOURS NEEDED DIRECTED (Patient not taking: Reported on 04/26/2022) triamcinolone acetonide (NASACORT) 55 mcg nasal inhaler Use 1 spray each nostril twice daily. (Patient not taking: Reported on 01/09/2022) cetirizine (ZYRTEC) 10 mg tablet TAKE 1 TABLET BY MOUTH EVERY DAY (Patient not taking: Reported on 06/22/2022) hydrocortisone 2.5 % ointment Apply 1 application to affected area twice daily. Use for only two days (Patient not taking: Reported on 09/26/2022) FAMILY HISTORY Problem Relation Age of Onset Diabetes Maternal Grandmother maternal cousin- type I other (arrthymia) Maternal Grandmother 55 stents (smoker) Social History Tobacco Use Smoking status: Never Passive exposure: Yes Smokeless tobacco: Never Tobacco comments: g-parents and mom smoke outside, paternal g-parents and dad smoke inside Vaping Use Vaping Use: Never used Substance Use Topics Alcohol use: No Drug use: No BP 104/72 Pulse 118 Temp 37.4 ?C (99.3 ?F) (Left Tympanic) Resp 16 Wt 48.2 kg (106 lb 3.2 oz) LMP 05/03/2019 SpO2 98% Hr 101 Review of Systems Constitutional: Positive for chills, fever and malaise/fatigue. HENT: Positive for congestion and sore throat. Negative for ear discharge, ear pain and sinus pain. Eyes: Negative for blurred vision, pain, discharge and redness. Respiratory: Positive for cough. Negative for hemoptysis, sputum production, shortness of breath, wheezing and stridor. Cardiovascular: Negative for chest pain. Gastrointestinal: Positive for abdominal pain, nausea and vomiting. Negative for diarrhea. Musculoskeletal: Positive for myalgias. Skin: Negative for itching and rash. Neurological: Positive for headaches. Negative for dizziness. Objective Physical Exam Constitutional: General: She is not in acute distress. Appearance: She is not diaphoretic. HENT: Head: Normocephalic. Jaw: No trismus, tenderness, swelling or pain on movement. Nose: Congestion present. Mouth/Throat: Mouth: Mucous membranes are moist. Pharynx: Oropharynx is clear. Uvula midline. No pharyngeal swelling, oropharyngeal exudate, posterior oropharyngeal erythema or uvula swelling. Eyes: Conjunctiva/sclera: Conjunctivae normal. Pupils: Pupils are equal, round, and reactive to light. Cardiovascular: Rate and Rhythm: Regular rhythm. Tachycardia present. Heart sounds: Normal heart sounds. Pulmonary: Effort: Pulmonary effort is normal. No tachypnea, accessory muscle usage or respiratory distress. Breath sounds: Normal breath sounds. No stridor. No wheezing, rhonchi or rales. Abdominal: General: There is no distension. Palpations: Abdomen is soft. Tenderness: There is no abdominal tenderness. There is no guarding or rebound. Musculoskeletal: Cervical back: Normal range of motion and neck supple. No edema, erythema, rigidity or tenderness. No pain with movement. Normal range of motion. Lymphadenopathy: Cervical: No cervical adenopathy. Skin: General: Skin is warm and dry. Neurological: Mental Status: She is alert and oriented to person, place, and time. ASSESSMENT/PLAN: 1. Fever, unspecified fever cause - ICD9: 780.60, ICD10: R50.9 (primary diagnosis) - INFLUENZ (more content not included)... [facility] 09-26-2022 History of Presen t illness Narrative Per Dr. Adam, Sugar was provided with Powerstep [employer]inals, size 8-8.5Womens, and instructed/educated in its application, wear, and care. All questions were answered, and patient was able to demonstrate competence with the necessary skills to utilize the above equipment. Laura Barnch RN Images from the original note were not included. Consultation requested by Dr. Madrigal for an opinion regarding b/l foot pain. My final recommendations will be communicated back to the requesting physician by way of shared Medical record or letter to requesting physician via US mail. Initial Podiatric Office Visit: Chief Complaint: This 16 year old female who presents with chief complaint:b/l foot and arch pain HPI Patient presents to clinic with complaint of burning and cramping in both feet . The pain is mostly along the medial arch, worse when she is standing. She will experience pain at times when sitting after a long day of standing but most of the pain is when she is standing upright. She has flatfoot and has been dealing with foot pain her entire life. She reports pain radiates up her legs and also affects her back. Patient treats the pain with rest and over the counter pain relievers. PAIN EVALUATION 09/26/2022 1413 Pain Level: 5 10/10 when on her feet extended amount of time Pain Location: Other: See Comment bilateral feet Description: Aching;Cramping;Sharp Duration Units: Years Frequency: Continuous Intervention/Comfort measure: Reposition;Relaxation No results found for: HBA1C PCP: Curry Worley MD PAST MEDICAL HISTORY Diagnosis Date Allergic rhinitis Nasal bones, closed fracture PMH - PAST MEDICAL HISTORY OF 01/26/09 normal color vision Current Outpatient Medications Medication Sig etonogestrel (NEXPLANON) subdermal implant 68 mg 68 mg by SUBDERMAL route. COVID-19 antigen test ([employer] COVID-19 RAPID AT-HOME) kit 1 Each as directed. (Patient not taking: Reported on 09/26/2022) albuterol HFA (PROVENTIL HFA, VENTOLIN HFA) 90 mcg/actuation inhaler INHALE 2 PUFFS BY MOUTH EVERY 6 HOURS NEEDED DIRECTED (Patient not taking: No sig reported) triamcinolone acetonide (NASACORT) 55 mcg nasal inhaler Use 1 spray each nostril twice daily. (Patient not taking: No sig reported) cetirizine (ZYRTEC) 10 mg tablet TAKE 1 TABLET BY MOUTH EVERY DAY (Patient not taking: No sig reported) hydrocortisone 2.5 % ointment Apply 1 application to affected area twice daily. Use for only two days (Patient not taking: Reported on 09/26/2022) No current facility-administered medications for this visit. ALLERGIES Allergen Reactions Bees Shortness of Breath Immunotherapy x 3 years-- Dr. Kush Rivera (no allergy now) Cats Itching Dogs Itching Dust Mites Seasonal Allergies Cough nasal congestion and rash at times from trees and grass PAST SURGICAL HISTORY Procedure Laterality Date REPAIR OF NOSE FRACTURE 11/2015 SEPTOPLASTY 11/05/2020 TONSILLECTOMY & ADENOIDECTOMY <AGE 12 11/09/2011 FAMILY HISTORY Problem Relation Age of Onset Diabetes Maternal Grandmother maternal cousin- type I other (arrthymia) Maternal Grandmother 55 stents (smoker) Social History Tobacco Use Smoking status: Never Passive exposure: Yes Smokeless tobacco: Never Tobacco comments: g-parents and mom smoke outside, paternal g-parents and dad smoke inside Vaping Use Vaping Use: Never used Substance Use Topics Alcohol use: No Drug use: No REVIEW OF SYSTEMS GENERAL: Negative for Malaise, significant weight loss, fever RESPIRATORY: Negative for cough, wheezing and shortness of breath CARDIOVASCULAR: Negative for chest pain, leg swelling and palpitations GI: Negative for abdominal discomfort, blood in stools or black stools and change in bowel habits : Negative for dysuria, frequency and incontinence MUSCULOSKELETAL:+ foot pain. SKIN: Negative for lesions, rash, and itching. HEMATOLOGY/LYMPHOLOGY Negative for prolonged bleeding, bruising easily, and swollen nodes. ENDOCRINE: Negative for cold or heat intolerance, polyuria, polydipsia and goiter. NEURO: negative Physical Exam: Constitutional: Pt is a well developed 16 year old female who is alert, oriented and cooperative Eyes: Following during examination. No redness or drainage. Respiratory: RR normal and nonlabored. Even breathing. No evidence of distress or shortness of breath. Psychology: Patient is engaged during conversation. Normal affect and mood. Does not appear depressed or anxious during encounter. Vascular: Dorsalis pedis and posterior tibial pulses palpable as b/l Capillary Fill time < 5 seconds to digits 1-5 b/l Skin temperature warm to warm proximal to distal b/l Hair growth present to digits Neurological: intact light touch/epicritic sensation + tinel b/l intact protective sensation No significant neurological deficits Dermatological: Nails 1-5 b/l appear normal. Webspaces clean and dry 1-4 b/l. Skin appears well hydrated and supple. good color, texture, turgor. No open lesions present. No callosities present. Musculoskeletal/Orthopaedic: Patient has pain to palpation of b/l arch Foot type is pronated structurally AJ ROM is full with knee extended and flexed 1st MPJ is full when loaded and no pain or crepitus are noted with ROM. MTJ, STJ are full and free of pain and crepitus. +5/5 muscle strength dorsiflexion, plantarflexion, inversion, eversion b/l Radiographs: 3 views b/l foot ordered September 26, 2022: I have personally reviewed and interpreted these XR myself: flatfoot. Small bone island noted. No signs of fracture ASSESSMENT: (M76.829) Posterior tibial tendon dysfunction (primary encounter diagnosis) (M21.41, M21.42) Pes planus of both feet (G57.53) 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 PLAN: 1. History and physical examination performed. 2. XR reviewed with patient and interpreted today 3. Will provide patient with powerste inserts but I do feel custom will be of benefit 4. Discussed possible tarsal tunnel. Offered emg. She declined this today. May consider if she continues with numbness and burning 5. She does have severe flatfoot. May warrant surgeyr in future. Sandoval Adam DPM Podiatry [address] [facility] [address] Dept: [phone] Dept AMB ROOMING INTAKE FLOWSHEET DATA Pain Pain Level: 5 (10/10 when on her feet extended amount of time) Pain Location: Other: See Comment (bilateral feet) Description: Aching, Cramping, Sharp Duration Units: Years Frequency: Continuous Intervention/Comfort measure: Reposition, Relaxation Patient presents with: Left Foot - New, Pain Right Foot - New, Pain Patient presents for bilateral foot pain that is constantly there but varies with intensity. Patient states that this pain has been there since she was little. Pain worse after being on her feet extended amount of time (ex. After work where she does 10 hour shifts). Patient was diagnosed with flat feet when younger. documented in this encounter [facility] 09-26-2022 Instructions Sandoval Adam - 09/26/2022 2:36 PM EDT Powerstep Original Full length. Can purchase at [employer] here in [place], [employer] in [place] or [place]. Also can find in [place] in [facility]. Powersteps can also be purchased online, starting around $25.00 If you have a metatarsal or dancer pad for your feet apply the pad directly to the insole so you can interchange between your shoes. Find a shoe with a removable insole and take this out and replace with your powerstep insole. Always bring powersteps with you when shopping for shoes so that you can make sure that everything fits well together documented in this encounter [facility] 08-04-2022 Miscellaneous Notes appt scheduled Codi Arguello RN Message left for parent to return call. Laura Rivera RN Consult placed. Yanira Madrigal PA-C Mother calling, states "she had a referral in the past to see podiatry and she never got a chance to go. Now that she is up on her feet all the time she is having pain again, wondering if referral to podiatry can be placed? Codi Arguello RN documented in this encounter [facility] 06-22-2022 History of Presen t illness Narrative Patient presents with: Sore Throat: Fever, nausea, hives on arms and back, cough x 1 day HPI: Feeling sick since yesterday Positive symptoms: Cough, Sore throat, Fever, Nausea, hives, Nasal Congestion, Rhinorrhea, Post nasal drainage, Nausea, Vomiting, headache, malaise Negative symptoms: Chest tightness, OTC: Mucinex, Tylenol Had COVID illness in December. MEDICATIONS: Current Outpatient Medications Medication Sig hydrocortisone 2.5 % ointment Apply 1 application to affected area twice daily. Use for only two days etonogestrel (NEXPLANON) subdermal implant 68 mg 68 mg by SUBDERMAL route. albuterol HFA (PROVENTIL HFA, VENTOLIN HFA) 90 mcg/actuation inhaler INHALE 2 PUFFS BY MOUTH EVERY 6 HOURS NEEDED DIRECTED (Patient not taking: Reported on 04/26/2022) triamcinolone acetonide (NASACORT) 55 mcg nasal inhaler Use 1 spray each nostril twice daily. (Patient not taking: Reported on 01/09/2022) cetirizine (ZYRTEC) 10 mg tablet TAKE 1 TABLET BY MOUTH EVERY DAY (Patient not taking: Reported on 06/22/2022) No current facility-administered medications for this visit. ALLERGIES: ALLERGIES Allergen Reactions Bees Shortness of Breath Immunotherapy x 3 years-- Dr. Kush Rivera (no allergy now) Cats Itching Dogs Itching Dust Mites Seasonal Allergies Cough nasal congestion and rash at times from trees and grass VITALS: BP 90/62 Pulse 100 Temp 36.3 C (97.3 F) Resp 21 Wt 45.5 kg (100 lb 6.4 oz) LMP 05/03/2019 SpO2 99% PHYSICAL EXAM: GEN: mildly ill appearing. Accompanied by her mother. SKIN: ill defined erythema on the back with dermatographism and pinpoint papules. Similar rash on the arms. HEENT: PERRL, EOMI, conjunctiva clear Ears: canals with small cerumen. TMs without erythema, bulge, or effusion Sinuses: non-tender frontal sinus, non-tender maxillary sinuses Throat: moist mucous membranes, mild erythema, no exudate Neck: supple, no thyromegaly, anterior lymphadenopathy HEART: regular rate and rhythm, no murmurs LUNGS: clear to auscultation, no wheezes or crackles, no increased WOB ASSESSMENT/PLAN: 1. Influenza-like illness - ICD9: 487.1, ICD10: J11.1 (primary diagnosis) 2. Sore throat - ICD9: 462, ICD10: J02.9 - STREP A MOLECULAR (POC) - negative. - suspect influenza, differential includes viral URI/COVID-19. - Discussed supportive care treatment with home isolation, rest, cold medicine, and analgesia. - Discussed urticarial reaction is often triggered by acute illness or allergy. Treat with antihistamine such as Benadryl or Zyrtec. - Red flags to seek further treatment include chest pain, shortness of breath, and lethargy; in the ER if severe. - COVID WITH FLUA+B, ROUTINE -she would like Tamiflu sent to the pharmacy if positive for influenza. Alexi Rai MD documented in this encounter [facility] 04-27-2022 Miscellaneous Notes Patient given results and verbalized understanding of instructions given. Kati Chris Please notify of negative influenza and covid test. Continue comfort measures for symptoms as you would for a cold. Any worsening symptoms follow up with PCP or ER. Wen Henriquez APRN.TREE documented in this encounter [facility] 01-10-2022 Miscellaneous Notes Verified results with pt. Pt verbalized understanding. Elaine Tidwell MA Please inform Sugar of the following: Your covid test is positive. Follow the CDC guidelines for isolation: 1. Everyone, regardless of vaccination status, should stay home for 5 days, from onset of symptoms. 2. If you have no symptoms or your symptoms are resolving after 5 days, you can leave your house. 3. Continue to wear a mask around others for 5 additional days. If you have a fever, continue to stay home until your fever resolves, even if it is longer than 5 days. Please monitor your symptoms, and for any worrisome symptoms. Continue comfort measures for symptoms as you would for a cold. Any worsening symptoms follow up with PCP or ER. Wen Henriquez APRN.TREE documented in this encounter [facility] 01-09-2022 History of Presen t illness Narrative CC: Patient presents with: Sore Throat: Runny nose,throwing up, cough x 2 days HPI: Sugar Ferreira is a 16 year old female who presents to the office with complaint of head congestion, cough, nonproductive, sore throat, and ear symptoms and vomiting for the past day. Symptoms are staying the same. Associated symptoms includes nasal congestion, body aches, and fever. Denies diarrhea. Treatments tried include nothing so far. with no relief of symptoms. Sick contacts: recently in [place] and on a plane. History of asthma, frequent episodes of bronchitis, chronic bronchitis, bronchiectasis or COPD: No Smoker: No Seasonal/environmental allergies: No The ROS is otherwise negative. The patient's pmh, medications, allergies, and past visits are reviewed. PHYSICAL EXAM: BP 92/54 Pulse 91 Temp 36.9 C (98.4 F) Resp 21 Wt 42.1 kg (92 lb 12.8 oz) LMP 05/03/2019 SpO2 99% General appearance: alert, cooperative, pleasant, in no acute distress Head: Normocephalic Eyes: EOM's intact, conjunctiva pink and moist, no icterus, sclera white, non-injected Ears: Right ear: External ear/canal- Normal, TM - clear with good landmarks. Left ear: External ear/canal- Normal, TM - clear with good landmarks Oropharynx:moderate erythema, without exudates present Heart: Negative. RRR without obvious murmur, gallop, or rubs. No ectopy. Lungs: clear to auscultation, without rales or wheeze, good air exchange PAST MEDICAL HISTORY Diagnosis Date Allergic rhinitis Nasal bones, closed fracture PMH - PAST MEDICAL HISTORY OF 01/26/09 normal color vision PAST SURGICAL HISTORY Procedure Laterality Date REPAIR OF NOSE FRACTURE 11/2015 SEPTOPLASTY 11/05/2020 TONSILLECTOMY & ADENOIDECTOMY <AGE 10 11/09/2011 ALLERGIES Bees, Cats, Dogs, Dust Mites, and Seasonal Allergies MEDICATIONS albuterol HFA (PROVENTIL HFA, VENTOLIN HFA) 90 mcg/actuation inhaler INHALE 2 PUFFS BY MOUTH EVERY 6 HOURS NEEDED DIRECTED albuterol HFA (PROVENTIL HFA, VENTOLIN HFA) 90 mcg/actuation inhaler Inhale 2 Puffs as instructed every 4 hours as needed for wheezing/shortness of breath. cetirizine (ZYRTEC) 10 mg tablet TAKE 1 TABLET BY MOUTH EVERY DAY hydrocortisone 2.5 % ointment Apply 1 application to affected area twice daily. Use for only two days etonogestrel (NEXPLANON) subdermal implant 68 mg 68 mg by SUBDERMAL route. benzonatate (TESSALON PERLES) 100 mg capsule Take 2 capsules by mouth three times daily as needed. (Patient not taking: Reported on 01/09/2022) triamcinolone acetonide (NASACORT) 55 mcg nasal inhaler Use 1 spray each nostril twice daily. (Patient not taking: Reported on 01/09/2022) FAMILY HISTORY Problem Relation Age of Onset Diabetes Maternal Grandmother maternal cousin- type I other (arrthymia) Maternal Grandmother 55 stents (smoker) Social History Tobacco Use Smoking status: Passive Smoke Exposure - Never Smoker Smokeless tobacco: Never Tobacco comments: g-parents and mom smoke outside, paternal g-parents and dad smoke inside Substance Use Topics Alcohol use: No Drug use: No ASSESSMENT/PLAN: 1. Sore throat - ICD9: 462, ICD10: J02.9 (primary diagnosis) - COVID WITH FLUA+B, ROUTINE - STREP A MOLECULAR (POC) - negative 2. At increased risk of exposure to COVID-19 virus - ICD9: V15.89, ICD10: Z91.89 - COVID WITH FLUA+B, ROUTINE 3. Acute cough - ICD9: 786.2, ICD10: R05.1 - COVID WITH FLUA+B, ROUTINE Prednisone daily for 5 days, zofran prn in case vomiting gets to the point where she cant hold down any food. Prescription instructions reviewed with patient as applicable. Potential red flag symptoms discussed with the patient. Reviewed appropriate action plan to take if red flag symptoms occur. Patient agreeable to treatment plan. Brigid Vázquez APRN.TREE documented in this encounter [facility] 09-27-2021 Miscellaneous Notes The following approved medication requests have been transmitted electronically. Pending Prescriptions: Disp Refills albuterol HFA (PROVENTIL HFA, VENTOLIN 8.5 Each 0 HFA) 90 mcg/actuation inhaler [Pharmacy Med Name: ALBUTEROL HFA (PROAIR) INHALER] Sig: INHALE 2 PUFFS BY MOUTH EVERY 6 HOURS NEEDED DIRECTED NASIM: Yes Curry Worley MD documented in this encounter [facility] 09-22-2021 History of Presen t illness Narrative This note was created using [email or web address]. Subjective Sugar Ferreira is a 15 year old female. HPI Patient presents with a barky cough over the past 2 days. She has had a runny nose as well. She did have a fever of 102. No vomiting or diarrhea. She has had some nausea. She has had some body aches. She states the cough hurts her chest. She has been coughing for 2 days. Denies any known sick contacts. She did have COVID in February or March 2021. Denies loss of smell or taste. Review of Systems Constitutional: Positive for fatigue and fever. HENT: Positive for congestion and rhinorrhea. Negative for ear pain and sore throat. Eyes: Negative. Respiratory: Positive for cough. Negative for chest tightness, shortness of breath and wheezing. Cardiovascular: Chest pain with cough Gastrointestinal: Negative. Genitourinary: Negative. Musculoskeletal: Negative. All other systems reviewed and are negative. PAST MEDICAL HISTORY Diagnosis Date Allergic rhinitis Nasal bones, closed fracture PMH - PAST MEDICAL HISTORY OF 01/26/09 normal color vision Current Outpatient Medications Medication Sig Dispense Refill triamcinolone acetonide (NASACORT) 55 mcg nasal inhaler Use 1 spray each nostril twice daily. 16.9 mL 0 albuterol HFA (PROVENTIL HFA, VENTOLIN HFA) 90 mcg/actuation inhaler Inhale 2 Puffs as instructed every 4 hours as needed for wheezing/shortness of breath. 1 Each 1 cetirizine (ZYRTEC) 10 mg tablet TAKE 1 TABLET BY MOUTH EVERY DAY 30 tablet 5 hydrocortisone 2.5 % ointment Apply 1 application to affected area twice daily. Use for only two days 20 g 0 etonogestrel (NEXPLANON) subdermal implant 68 mg 68 mg by SUBDERMAL route. predniSONE (DELTASONE) 20 mg tablet Take 2 tablets by mouth once daily for 5 days. 10 tablet 0 benzonatate (TESSALON PERLES) 100 mg capsule Take 2 capsules by mouth three times daily as needed. 30 capsule 0 albuterol HFA (PROAIR HFA) 90 mcg/actuation inhaler Inhale 2 Puffs as instructed every 6 hours as needed. 1 Inhaler 0 No current facility-administered medications for this visit. PAST SURGICAL HISTORY Procedure Laterality Date REPAIR OF NOSE FRACTURE 11/2015 SEPTOPLASTY 11/05/2020 TONSILLECTOMY & ADENOIDECTOMY <AGE 10 11/09/2011 FAMILY HISTORY Problem Relation Age of Onset Diabetes Maternal Grandmother maternal cousin- type I other (arrthymia) Maternal Grandmother 55 stents (smoker) Social History Tobacco Use Smoking status: Passive Smoke Exposure - Never Smoker Smokeless tobacco: Never Used Tobacco comment: g-parents and mom smoke outside, paternal g-parents and dad smoke inside Substance Use Topics Alcohol use: No Drug use: No Objective BP 102/70 Pulse 80 Temp 37.1 C (98.7 F) Resp 20 Wt 44.4 kg (97 lb 12.8 oz) LMP 05/03/2019 SpO2 99% Physical Exam Vitals reviewed. Constitutional: Appearance: Normal appearance. HENT: Head: Normocephalic and atraumatic. Right Ear: Tympanic membrane, ear canal and external ear normal. Left Ear: Tympanic membrane, ear canal and external ear normal. Nose: Congestion present. Mouth/Throat: Mouth: Mucous membranes are moist. Pharynx: Oropharynx is clear. Cardiovascular: Rate and Rhythm: Normal rate and regular rhythm. Heart sounds: Normal heart sounds. Pulmonary: Effort: Pulmonary effort is normal. Breath sounds: Normal breath sounds. Comments: Harsh barky cough noted Musculoskeletal: Cervical back: Neck supple. Skin: General: Skin is warm and dry. Neurological: General: No focal deficit present. Mental Status: She is alert and oriented to person, place, and time. Assessment and Plan ASSESSMENT/PLAN: 1. Bronchitis - ICD9: 490, ICD10: J40 We will treat with Tessalon, albuterol inhaler and prednisone. Recommended follow-up with PCP if not improving. COVID flu RSV still pending. Lungs are clear on exam. - COVID, FLU A/B + RSV, ROUTINE Rema Gonzalez PA-C documented in this encounter [facility] 03-08-2021 Hospital Discharg e instructions Patient Education 03/08/2021 03:31:37 COVID-19 Prevent the Spread of COVID-19 If You Are Sick (10/15/2019)(CUSTOM) Prevent the Spread of COVID-19 If You Are Sick Accessible version: https://www.cdc.gov/coronavirus /2019-ncov/hw-rwz-sry-sick/step s-when-sick.html If you are sick with COVID-19 or think you might have COVID-19, follow the steps below to help protect other people in your home and community. Stay home except to get medical care. Stay home. Most people with COVID-19 have mild illness and are able to recover at home without medical care. Do not leave your home, except to get medical care. Do not visit public areas. Take care of yourself. Get rest and stay hydrated. Get medical care when needed. Call your doctor before you go to their office for care. But, if you have trouble breathing or other concerning symptoms, call 911 for immediate help. Avoid public transportation, ride-sharing, or taxis. Separate yourself from other people and pets in your home. As much as possible, stay in a specific room and away from other people and pets in your home. Also, you should use a separate bathroom, if available. If you need to be around other people or animals in or outside of the home, wear a cloth face covering. See COVID-19 and Animals if you have questions about pets: https://www.cdc.gov/coronavirus /2019ncov/faq.html#YMURF72baero ls Monitor your symptoms. Common symptoms of COVID-19 include fever and cough. Trouble breathing is a more serious symptom that means you should get medical attention. Follow care instructions from your healthcare provider and local health department. Your local health authorities will give instructions on checking your symptoms and reporting information. If you develop emergency warning signs for COVID-19 get medical attention immediately. Emergency warning signs include*: Trouble breathing Persistent pain or pressure in the chest New confusion or not able to be woken Bluish lips or face *This list is not all inclusive. Please consult your medical provider for any other symptoms that are severe or concerning to you. Call 911 if you have a medical emergency. If you have a medical emergency and need to call 911, notify the inseam trimming machine operator that you have or think you might have, COVID-19. If possible, put on a facemask before medical help arrives Call ahead before visiting your doctor. Call ahead. Many medical visits for routine care are being postponed or done by phone or telemedicine. If you have a medical appointment that cannot be postponed, call your doctor s office. This will help the office protect themselves and other patients. If you are sick, wear a cloth covering over your nose and mouth. You should wear a cloth face covering over your nose and mouth if you must be around other people or animals, including pets (even at home). You don t need to wear the cloth face covering if you are alone. If you can t put on a cloth face covering (because of trouble breathing for example), cover your coughs and sneezes in some other way. Try to stay at least 6 feet away from other people. This will help protect the people around you. Note: During the COVID-19 pandemic, medical grade facemasks are reserved for healthcare workers and some first responders. You may need to make a cloth face covering using a scarf or bandana. Cover your coughs and sneezes. Cover your mouth and nose with a tissue when you cough or sneeze. Throw used tissues in a lined trash can. Immediately wash your hands with soap and water for at least 20 seconds. If soap and water are not available, clean your hands with an alcohol-based hand organisation and methods analyst that contains at least 60% alcohol. Clean your hands often. Wash your hands often with soap and water for at least 20 seconds. This is especially important after blowing your nose, coughing, or sneezing; going to the bathroom; and before eating or preparing food. Use hand organisation and methods analyst if soap and water are not available. Use an alcohol-based hand organisation and methods analyst with at least 60% alcohol, covering all surfaces of your hands and rubbing them together until they feel dry. Soap and water are the best option, especially if your hands are visibly dirty. \\ Avoid touching your eyes, nose, and mouth with unwashed hands. Avoid sharing personal household items. Do not share dishes, drinking glasses, cups, eating utensils, towels, or bedding with other people in your home. Wash these items thoroughly after using them with soap and water or put them in the c4 planner. Clean all high-touch surfaces everyday. Clean and disinfect high-touch surfaces in your sick room and bathroom. Let someone else clean and disinfect surfaces in common areas, but not your bedroom and bathroom. If a caregiver or other person needs to clean and disinfect a sick person s bedroom or bathroom, they should do so on an as-needed basis. The caregiver/other person should wear a mask and wait as long as possible after the sick person has used the bathroom High-touch surfaces include phones, remote controls, counters, tabletops, doorknobs, bathroom fixtures, toilets, keyboards, tablets, and bedside tables. Clean and disinfect areas that may have blood, stool, or body fluids on them. Use household hoop flaring machine operator and disinfectants. Clean the area or item with soap and water or another detergent if it is dirty. Then use a household disinfectant. Be sure to follow the instructions on the label to ensure safe and effective use of the product. Many products recommend keeping the surface wet for several minutes to ensure germs are killed. Many also recommend precautions such as wearing gloves and making sure you have good ventilation during use of the product. Most EPA-registered household disinfectants should be effective. How to discontinue home isolation. People with COVID-19 who have stayed home (home isolated) can stop home isolation under the following conditions: If you will not have a test to determine if you are still contagious, you can leave home after these three things have happened: You have had no fever for at least 72 hours (that is three full days of no fever without the use of medicine that reduces fevers) AND other symptoms have improved (for example, when your cough or shortness of breath has improved) AND at least 10 days have passed since your symptoms first appeared. If you will be tested to determine if you are still contagious, you can leave home after these three things have happened: You no longer have a fever (without the use of medicine that reduces fevers) AND other symptoms have improved (for example, when your cough or shortness of breath has improved) AND you received two negative tests in a row, 24 hours apart. Your doctor will follow CDC guidelines. In all cases, follow the guidance of your healthcare provider and local health department. The decision to stop home isolation should be made in consultation with your healthcare provider and state and local health departments. Local decisions depend on local circumstances. cdc.gov/coronavirus 03/08/2021 03:31:28 External Ear Infection (Adult) External Ear Infection (Adult) External otitis (also called swimmer s ear ) is an infection in the ear canal. It is often caused by bacteria or fungus. It can occur a few days after water gets trapped in the ear canal (from swimming or bathing). It can also occur after cleaning too deeply in the ear canal with a cotton swab or other object. Sometimes, hair care products get into the ear canal and cause this problem. Symptoms can include pain, fever, itching, redness, drainage, or swelling of the ear canal. Temporary hearing loss may also occur. Home care Do not try to clean the ear canal. This can push pus and bacteria deeper into the canal. Use prescribed ear drops as directed. These help reduce swelling and fight the infection. If an ear wick was placed in the ear canal, apply drops right onto the end of the wick. The wick will draw the medicine into the ear canal even if it is swollen closed. A cotton ball may be loosely placed in the outer ear to absorb any drainage. You may use acetaminophen or ibuprofen to control pain, unless another medicine was prescribed. Note: If you have chronic liver or kidney disease or ever had a stomach ulcer or GI bleeding, talk to your healthcare provider before taking any of these medicines. Do not allow water to get into your ear when bathing. Also, don't swim until the infection has cleared. Prevention Keep your ears dry. This helps lower the risk of infection. Dry your ears with a towel or hair preparer after getting wet. Also, use ear plugs when swimming. Do not stick any objects in the ear to remove wax. If you feel water trapped in your ear, use ear drops right away. You can get these drops over the counter at most drugstores. They work by removing water from the ear canal. Follow-up care Follow up with your healthcare provider in 1 week, or as advised. When to seek medical advice Call your healthcare provider right away if any of these occur: Ear pain becomes worse or doesn t improve after 3 days of treatment Redness or swelling of the outer ear occurs or gets worse Headache Painful or stiff neck Drowsiness or confusion Fever of 100.4 F (38 C) or higher, or as directed by your healthcare provider Seizure [phone] [employer]. [address] [place] [address]. All rights reserved. This information is not intended as a substitute for professional medical care. Always follow your healthcare professional's instructions. 03/08/2021 03:31:17 Earwax Removal Earwax Removal The ear canal makes earwax from the canal s lining. The ears make wax to lubricate and protect the ear canal. The ear canal is the tube that connects the middle ear to the outside of the ear. The wax protects the ear from bacteria, infection, and damage from water or trauma. The wax that forms in the canal naturally moves toward the outside of the ear and falls out. In some cases, the ear may make too much wax. If the wax causes problems or keeps the healthcare provider from seeing into the ear, the extra wax may be removed. Too much wax can affect your hearing. It can cause itching. In rare cases, it can be painful. Earwax should not be removed unless it is causing a problem. You should not stick objects into your ear to remove wax unless told to do so by your healthcare provider. Healthcare providers can remove earwax safely. It is important to stay still during the procedure to avoid damage to the ear canal. But removing earwax generally doesn t hurt. You will not usually need anesthesia or pain medicine when the provider removes the earwax. A number of conditions lead to earwax buildup. These include some skin problems, a narrow ear canal, or ears that make too much earwax. Using cotton swabs in the canal pushes earwax deeper into the ear and contributes to the buildup of earwax. Home care The healthcare provider may recommend mineral oil or an dkhf-jes-vogfcds eardrop to use at home to soften the earwax. Use these products only if the provider recommends them. Carefully follow the instructions given. Don t use mineral oil or OTC eardrops if you might have an ear infection or a ruptured eardrum. Tell your healthcare provider right away if you have diabetes or an immune disorder. Don t use cotton swabs in your ears. Cotton swabs may push wax deeper into the ear canal or damage the eardrum. Use cotton gauze or a wet washcloth to gently remove wax on the outside of the ear and around the opening to the ear canal. Don't use any probing device or object such as cotton-tipped swabs or chris pins to clean the inside of your ears. Don t use ear candles to clean your ears. Candling can be dangerous. It can burn the ear canal. It can also make the condition worse instead of better. Don t use cold water to rinse the ear. This will make you dizzy. If your provider tells you to rinse your ear, use only warm water or follow his or her instructions. Check the ear for signs of infection or irritation listed below under When to seek medical advice. Steps for using eardrops 1. Warm the medicine bottle by rubbing it between your hands for a few minutes. 2. Lie down on your side, with the affected ear up. 3. Place the recommended number of drops in the ear. Wet a cotton ball with the medicine. Gently put the cotton ball into the ear opening. Follow-up care Follow up with your healthcare provider, or as directed. When to seek medical advice Call the provider right away if you have: Ear pain that gets worse Fever of 100.4F F (38 C) or higher, or as directed by your healthcare provider Worsening wax buildup Severe pain, dizziness, or nausea Bleeding from the ear Hearing problems Signs of irritation from the eardrops, such as burning, stinging, or swelling and tenderness Foul-smelling fluid draining from the ear Swelling, redness, or tenderness of the outer ear Headache, neck pain, or stiff neck [id number] [employer]. [address] [place] [address], [place] [address]. All rights reserved. This information is not intended as a substitute for professional medical care. Always follow your healthcare professional's instructions. Follow Up Care 03/08/2021 02:16:33 With:JARAD TERRELL DO Address: [phone] When:2-4 days [facility] 03-08-2021 HCoV 229E RNA LON+non-probe Ql (Nph) Not Detected *NA* (03/08/21 3:05 AM) AH Auto Viro/Sero SS 11-05-2020 History of Presen t illness Narrative Assisted up to bathroom and states feels better and wants to go home. Nasal drip pad changed. Pain management discussed with dr Schaeffer and order received for toradol 15 mg. States not ready to go home due to pain. Medicated with dilaudid due to doesn't think she can eat crackers and does not want to get sick taking pain medication by mouth states she has sore throat and roof of mouth. Discharge instructions reviewed with patient and mom. Verbalize understanding and mom states that dr Terrell stated that she can continue afrin nasal spray. Patient mom aware that she is to use afrin for 3 days only. Medicated with dilaudid mom at bedside Mom brought to bedside and patient became extremely nauseated zofran provided and iVF increased. Received patient sedated from OR respirations shallow unlabored. Head of bed elevated and head repositioned with resolution. Report from SOUND RECORDING TECHNICIAN. Assessment completed. documented in this encounter [facility] Work Phone: 11-05-2020 Hospital Discharg e Jarad Zarate, DO - 11/05/2020 Nasal Surgery - Home Instructions Dr. Jarad Terrell 1. You have undergone surgery and should therefore allow 10 - 14 days to rest. Avoid any heavy lifting, straining, or bending over during this time. 2. Maintain head elevation. 3. Use ice compresses (not a heavy ice bag) as needed for facial or nasal swelling. 4. Use a saline nasal spray (ex; [place], [place], Afrin Non-Medicated, or [place]-Synephrine Nasal) 2 to 3 sprays each nostril, 10 to 20 times daily. This helps to rinse and moisturize the nose. 5. Do not blow or otherwise manipulate your nose. 6. Bloody oozing from the nose is normal and is to be expected. You may gently pat at the end of your nose should there be any secretions. Alternatively, you may tape guaze to the nasal tip as a drip pad. 7. You may have received a nasal spray from the hospital. Do not use this unless the nasal congestion is too uncomfortable. If so, you use this spray or Afrin for three (3) days only. 8. If you need to sneeze, do not suppress it. Rather, sneeze with your mouth open. 9. Any loss of smell or taste should return with in a few weeks. 10. Continue all routine home medications. You may use ibuprofen (Advil / Motrin) as needed to supplement relief of discomfort. 11. You should not drive a vehicle for 24 hours after your surgery or while you are taking the prescribed pain medication. 12. If you have any questions or concerns regarding your care, please contact our office at any time. OFFICE NUMBER: [phone] documented in this encounter [facility] Work Phone: Discharge summary Note Date/Time December 05, 2022 3:20am [facility] Medical Records Department [address] [place] [address] Emergency Department Summary 12/05/22 MR#: [id number] Acct: [id number] Name: SUGAR FERREIRA Rep #:[id number] : 2005 17 From: Giuseppe Cote DO PCP: Dr. Curry Worley MD Status:REG E R Location: ED HPI History of Present Illness Chief Complaint: Lower Extremity Injury Informant: patient, parent and friend Narrative Narrative: Patient is a 17-year-old female who is otherwise healthy. She states that she was hanging out with friends this evening as it is technically her birthday. She reports she went outside late at night/early in the morning to jump on the trampoline. She states as she was jumping she slipped and her right leg landed in an awkward direction and at this time she heard a "snap" and developed severepain in her right lower leg. She states that there was no other injury but thatshe cannot bear weight secondary to the trauma and with concern for fracture wasbrought in for evaluation. PFSH PFSH Home Medications norelgestromin 150 mcg-e.estradiol 35 mcg/24 hr weekly transderm patch (Xulane) See Rx Instructions .Route .COMPLEX #3 patches 09/16/22 [Rx Last Taken Unknown] ondansetron 4 mg disintegrating tablet 4 mg PO TID PRN nausea and vomiting 7 days #21 tabs 12/05/22 [Rx Last Taken Unknown] oxycodone-acetaminophen 5 mg-325 mg tablet (Percocet) 1 tab PO Q4H PRN pain 5 days #30 tabs 12/05/22 [Rx Last Taken Unknown] Allergy/AdvReac Type Severity Reaction Status Date / Time No Known Allergies Allergy Verified 12/05/22 00:50 Family History Mother Thyroid disorder Surgical History S/P eye surgery S/P nasal surgery S/P tonsillectomy and adenoidectomy Social History (Updated 08/25/22 @ 14:06 by Frieda Shah) household members: family housing: house number of children: 0 current occupational status: employed 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 [employer] Smoking Status: Former smoker alcohol intake: never substance use type: does not use caffeine: Yes what type of physical activity do you participate in: other details: track and cheerleading seatbelt use: always do you feel safe at home: Yes additional social history: BF- Taz ROS ROS ED Constitutional Constitutional ED: Denies chills or fever(s) Eyes Eyes: Denies change in vision ENT ENT ED: Denies sore throat Cardiovascular Cardiovascular: Denies chest pain Respiratory/Chest Respiratory/Chest: Denies cough or dyspnea Gastrointestinal Gastrointestinal: Denies abdominal pain, diarrhea, nausea or vomiting Genitourinary Genitourinary ED: Denies dysuria Musculoskeletal Musculoskeletal: Reports other Details: Positive right lower leg pain Integumentary Denies Abrasions or rash Neurologic Neurologic: Denies headache(s) or paresthesias Hematologic/Lymphatic Hematologic/Lymphatic: Denies easy bleeding or easy bruising EXAM Physical Exam Const Vital Signs: 12/05/22 00:44 Temperature 97.6 F L Temperature Source Temporal Pulse Rate 108 H Respiratory Rate 18 Blood Pressure 122/73 H Blood Pressure Mean 89 Pulse Ox 100 Oxygen Delivery Method Room Air Positive well nourished and well developed General Appearance ED: well developed HEENT HEENT Narrative: Normocephalic atraumatic Eyes PERRL and EOMs intact bilaterally Neck supple Neck Narrative: No bony deformity or step-off of the cervical spine no midline pain on palpation Resp normal respiratory effort and clear to auscultation bilaterally Cardio regular rate and regular rhythm Extremity Extremity Narrative: Right lower extremity is neurovascularly intact. There is soft tissue swelling with faint warmth along the middle to distal third of the right tibia. Active and passive range of motion is severely limited secondary to pain. Compartmentsare soft going against compartment syndrome. Capillary refill is less than 3 seconds Neuro oriented x3 and CN's II-XII intact bilaterally Sensorium / Orientation: alert Psych mental status grossly normal Skin no rashes or lesions noted MDM MDM MDM Narrative Medical decision making narrative: Patient presented to the ER after mechanical fall. She had no signs of head injury or other trauma other than her right lower leg. Therefore I felt no needfor cardiac or syncope work-up but only x-ray of the right lower leg as differential is for fibula versus tibia versus metatarsal fracture. X-ray showed a proximal fibula and distal tibia fracture. Despite this fracture the area is closed she is neurovascular intact and compartments are soft going against compartment syndrome. The case was discussed with orthopedics as patient will most likely require surgery to fix the distal tibia fracture. Theyreviewed the images and at this time as she is closed and neurovascular intact they recommend splinting and follow-up on an outpatient basis. In order to helpwith potential surgical planning they request a noncontrast CT of the right ankle which was obtained as well. Patient was placed in a Ortho-Glass splint asdocumented below and findings discharged home with outpatient orthopedic follow-up and pain medication Patient had the right lower leg placed in a long-leg posterior tibial Ortho-Glass splint this was accompanied with a short leg stirrup splint. The splints fit the fracture with good approximation and stabilization. Following application of the splint capillary refill made less than 3 seconds. Patient tolerated procedure well without complication History & Record Review Discussion w/independent historian: Patient, Family and Friend Radiography Diagnostic Testing: Clinical Impression(s) from Imaging Studies Ankle X-Ray 12/05/22 01:23 IMPRESSION: Oblique fracture of the distal tibia with intra-articular extension into the tibial plafond. Electronically Signed: Julio Cesar Flannery MD at 2:09 EDT , Foot X-Ray 12/05/22 01:23 IMPRESSION: 1. Oblique fracture of the distal tibia is partially visualized. 2. No acute injuries identified involving the right foot. Electronically Signed: Julio Cesar Flannery MD at 2:08 EDT , Tibia/Fibula X-Ray 12/05/22 01:23 IMPRESSION: 1. Oblique, mildly displaced fracture of the distal tibia with intra-articular extension into the tibial plafond. 2. Oblique mildly displaced fracture of the proximal fibular shaft. Electronically Signed: Julio Cesar Flannery MD at 2:10 EDT Reading Location ID and State: [facility] / [place] Tel , Service support , Lower Extremity CT 12/05/22 02:30 IMPRESSION: Oblique, mildly displaced fracture of the distal tibia with intra-articular extension into the tibial plafond. Electronically Signed: Julio Cesar Flannery MD at 3:16 EDT , X-ray of the right ankle and right tibia/fibula as interpreted by the emergency medicine physician display a minimally displaced distal third oblique fracture through the tibia and a obliquely minimally displaced fracture through the proximal third of the fibula X-ray of the right foot as interpreted by the emergency medicine physician reveals no acute fracture or dislocation Discharge Plan Triage Chief Complaint: Lower Extremity Injury ED Provider: Giuseppe Cote Dx/Rx/DC Orders Clinical Impression: Closed fracture of distal end of right tibia, Closed fracture of proximal end of right fibula Instructions: Ankle Fracture ORIF, ED Splint Care, Fiberglass Prescriptions: New oxycodone-acetaminophen [Percocet] 5-325 mg tablet 1 tab PO Q4H PRN (Reason: pain) 5 Days Qty: 30 0RF ondansetron 4 mg tablet,disintegrating 4 mg PO TID PRN (Reason: nausea and vomiting) 7 Days Qty: 21 0RF No Action Xulane 150-35 mcg/24 hr patch weekly See Rx Instructions .ROUTE .COMPLEX Qty: 3 0RF Dose Instruction: 1 PATCH TRANSDERMALLY EVERY 7 DAYS APPLY ONCE WEEKLY FOR 3 WEEKS OF A 4-WEEK CYCLE Rx Instructions: 1 PATCH TRANSDERMALLY EVERY 7 DAYS APPLY ONCE WEEKLY FOR 3 WEEKS OF A 4-WEEK CYCLE Primary Care Provider: Curry Worley Referrals: Curry Worley MD [Primary Care Provider] - Levon Wadsworth DO [Med Staff - Active Staff] - Activity Restrictions/Additional Instructions: Please wear your splint as directed for stabilization of your fracture and follow-up with orthopedics to discuss outpatient surgical fixation. If you haveany further concerns return to the ER for repeat evaluation. Please make sure while you are at rest or elevating your foot/leg to help reduce swelling What to do if you have Problems For any increased pain, shortness of breath, bleeding, nausea or vomiting, chestpain, or any unexpected problems, contact your Primary Care Provider. Call [facility] ([phone]) or report to the closest Emergency Room. Call 911 if necessary. 12/05/22 0327 <Electronically signed by Giuseppe Cote DO> Cosigner Signature (if applicable): CC: Dr. Curry Worley MD ~ Signed [facility] Work Phone: Discharge summary Author Levon Wadsworth [facility] December 15, 2022 2:33pm Note Date/Time December 15, 2022 2:33 pm [facility] Medical Records Department [address] [place] [id number] Instructions for Home/Discharge Instructions 12/15/22 1433 MR#: [id number] Acct: [id number] Name: SUGAR FERREIRA Rep #:[id number] : 2005 17 From: Levon read DO PCP: Dr. Curry Worley MD Status:REG S DC Discharge Instructions Follow Up Care Test Results: Test results from this visit will be discussed in further detail at your follow- up appointment, if applicable. Discharge Plan Admission Primary Reason for Your Visit: Right ankle fixation Attending Provider: Levon Wadsworth Primary Care Provider: Curry Worley Instructions Additional Instructions / Restrictions: Follow-up in [address] Wadsworth, call the office to schedule. Maintain splint keep it clean dry and intact until follow-up. Ice and elevation to the right lower extremity Aspirin 81 mg twice daily for DVT prophylaxis starting postoperative day #1. Take medications as prescribed Nonweightbearing operative extremity Discharge Orders/Prescriptions Prescriptions: No Action ondansetron 4 mg tablet,disintegrating 4 mg PO TID PRN (Reason: nausea and vomiting) 7 Days Qty: 21 0RF Nexplanon 68 mg implant 68 mg subdermal DAILY oxycodone-acetaminophen [Percocet] 5-325 mg tablet See Rx Instructions .ROUTE .COMPLEX PRN (Reason: pain) 5 Days Qty: 30 0RF Rx Instructions: Take 1-2 tablets by mouth every 6 hours as needed for pain gabapentin 100 mg capsule 100 mg PO TID 14 Days Qty: 42 0RF Referrals / Follow Up: Curry Worley MD [Primary Care Provider] - Levon Wadsworth DO [Med Staff - Active Staff] - Within 2 Weeks Disposition Disposition (needs filled in before D/C Order can be placed): Home, Self Care 12/15/22 1433<Electronically signed by Levon Wadsworth DO>Levon Wadsworth DO CC: Dr. Curry Worley MD ~ Signed [facility] Work Phone: Evaluation + Plan note No data available for this section [facility] Evaluation note* Diagnosis Bronchitis- Primary Bronchitis, not specified as acute or chronic documented in this encounter [facility] note* Diagnosis Sore throat- Primary Acute pharyngitis At increased risk of exposure to COVID-19 virus Acute cough documented in this encounter [facility] note* Diagnosis Influenza-like illness- Primary Influenza with other respiratory manifestations Sore throat Acute pharyngitis documented in this encounter [facility] note* Diagnosis Pain of foot, unspecified laterality- Primary documented in this encounter [facility] note* Diagnosis Bilateral foot pain- Primary Pain in limb documented in this encounter [facility] note* Diagnosis Onset Date Resolution Status Breakthrough bleeding on Nexplanon acute Routine screening for STI (s exually transmitted infection) acute [facility] Work Phone: Evaluation note* Diagnosis Posterior tibial tendon dysfunction- Primary Other disorders of synovium, tendon, and bursa Pes planus of both feet 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 documented in this encounter [facility] note* Diagnosis Onset Date Resolution Status Breakthrough bleeding on Nexplanon acute Contraceptive management acu te Vaginal discharge acute Vulvar itching acute [facility] Work Phone: Evaluation note* Diagnosis Bilateral foot pain Pain in limb documented in this encounter [facility] noteNo assessment information [facility] Work Phone[facility] note* Diagnosis MARIA DE JESUS (generalized anxiety disorder)- Primary Generalized anxiety disorder Adjustment disorder with depressed mood [facility] Diagnosis MARIA DE JESUS (generalized anxiety disorder)- Primary Generalized anxiety disorder [facility] Diagnosis Rash- Primary Rash and other nonspecific skin eruption [facility] Additional Instructions Please wear your splint as directed for stabilization of your fracture and follow-up with orthopedics to discuss outpatient surgical fixation. If you have any further concerns return to the ER for repeat evaluation. Please make sure while you are at rest or elevating your foot/leg [facility] Discharge instructions Additional Instructions Follow-up in [address] Wadsworth, call the office to schedule. Maintain splint keep it clean dry and intact until follow-up. Ice and elevation to the right lower extremity Aspirin 81 mg twice daily for DVT prophylaxis starting postoperative day #1. Take medications as prescribed Nonweightbearing operative extremity [facility]: Reason for referral (narrative)* Diagnostic Procedure Only (Routine) - Pending Review Specialty Diagnoses / Procedures Referred By Frannie osman Referred To Contact XR IMAGING Diagnoses Bilateral foot pain Procedures XR FOOT GENERAL 3V AP/LAT/OBL BILATERAL RADEX FOOT COMPLETE MINIMUM 3 VIEWS [facility] [address] [place] [address] Xr Imaging Referral ID Status Reason Start Date Expiration Date Visits Requested Visits Authorized [id number] Pending Review Auto-Generat ed Referral 08/16/2022 09/15/2023 1 1 [facility] for referral (narrative)* Diagnostic Procedure Only (Routine) - Closed Specialty Diagnoses / Procedures Referred By Frannie osman Referred To Contact XR IMAGING Diagnoses Bilateral foot pain Procedures XR FOOT GENERAL 3V AP/LAT/OBL BILATERAL RADEX FOOT COMPLETE MINIMUM 3 VIEWS [facility] [address] [place] [address] [place] [address] Referral ID Status Reason Start Date Expiration Date V isits Requested Visits Authorized [id number] Closed Auto-Generate d Referral 08/16/2022 09/15/2023 1 1 [facility] Diagnostic Procedure Only (Routine) - Closed Specialty Diagnoses / Procedures Referred By Contac t Referred To Contact XR IMAGING Diagnoses Bilateral foot pain Procedures XR FOOT GENERAL 3V AP/LAT/OBL BILATERAL RADEX FOOT COMPLETE MINIMUM 3 VIEWS [facility] [address] [place] [address] [place] [address] Referral ID Status Reason Start Date Expiration Date V isits Requested Visits Authorized [id number] Closed Auto-Generate d Referral 08/16/2022 09/15/2023 1 1 [facility] Advance Directives No Advanced Directives Records FoundDocuments on File Type Date 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 ACP-Advance Directive ACP-Power of Blow Machine Tender Starch Spraying Latest Code Status on File Code Status Date Activated Date Inactivated Comments Full Code 11/05/2020 9:25 AM Full Code 12/31/2015 7:17 AM 12/31/2015 6:50 PM Advance Directive Response Recorded Date/ Time Advance Directives No August 24 023 12:09pm Living Will No August 24, 2022 12:09pm Power of Blow Machine Tender Starch Spraying No August 24 12:09pm Advance Directive Response Recorded Date/ Time Advance Directives No August 24 023 12:09pm Living Will No December 05, 2022 12:48am Power of Blow Machine Tender Starch Spraying No December 05 12:48am Advance Directive Response Recorded Date/ Time Advance Directives No August 24 023 12:09pm Living Will No December 14, 2022 3:04pm Power of Blow Machine Tender Starch Spraying No December 14 3:04pm Advance Directive Response Recorded Date/ Time Advance Directives No August 24 023 11:09am Living Will No December 14, 2022 2:04pm Power of Blow Machine Tender Starch Spraying No December 14 2:04pm Summary Purpose Family History No Family History Records Found Relationship Condition Age at Onset Recorded Date/T florencio mother Disorder of thyroid Unknown Health Concerns Infection Onset Date Last Indicated Resolved Time COVID-19 Rule-Out 09/22/2021 09/22/2021 Infection Onset Date Last Indicated Resolved Time COVID-19 Rule-Out 01/09/2022 01/09/2022 Infection Onset Date Last Indicated Resolved Time COVID-19 Rule-Out 01/09/2022 01/09/2022 01/10/2022 12:30 AM EDT COVID-19 Confirmed 01/09/2022 01/09/2022 Infection Onset Date Last Indicated Resolved Time COVID-19 Rule-Out 04/26/2022 04/26/2022 04/26/2022 8:33 PM EST Infection Onset Date Last Indicated Resolved Time COVID-19 Rule-Out 06/22/2022 06/22/2022 Reason for Referral Specialty Diagnoses / Procedures Referred By Frannie osman Referred To Contact Podiatry Diagnoses Pain of foot, unspecified laterality Procedures CONSULT TO PODIATRY OFFICE/OUTPATIENT [facility] 60-74 MINUTES Yanira Madrigal PA-C [address] [place] [address] Referral ID Status Reason Start Date Expiration Date Visits Requested Visits Authorized [id number] Authorized PCP Requested Referral 08/03/2022 08/03/2023 1 1 Chief Complaint and Reason for Visit Chief Complaint heavy bleeding sandro rns, pt off this day Reason for Visit Breakthrough bleedin g on Nexplanon Routine screening for STI (sexually transmitted infection) Chief Complaint heavy bleeding sandro rns, pt off this day R LEG INJURY Reason for Visit Breakthrough bleedin g on Nexplanon Routine screening for STI (sexually transmitted infection) Chief Complaint R LEG INJURY 3 M FU, pt no show last appt FX R TIBIA RX HERE Reason for Visit Breakthrough bleedin g on Nexplanon Contraceptive management Vaginal discharge Vulvar itching Chief Complaint FX R TIBIA RX HERE Chief Complaint RT ANKLE FRACTURE Additional Source Comments Ordered Prescriptions (unrec ognized section and content) Prescription Sig Dispensed Refills Start Date End Da te sodium chloride (OCEAN) 0.65 % nasal spray 2 sprays by Nasal route as needed for Congestion (2 sprays each nostril multiple times daily) 2 sprays each nostril multiple times daily 1 Bottle 3 11/05/2020 amoxicillin-clavulanate (AUGMENTIN) 875-125 MG per tablet Take 1 tablet by mouth 2 times daily for 7 days 14 tablet 0 11/05/2020 11/12/2020 Scheduled Active and Recently Administ ered Medications (unrecognized section and content) Medication Order 11/03/2020 11/04/2020 11/05/2020 acetaminophen (TYLENOL) tablet 1,000 mg (COMPLETED) 1,000 mg, Oral, ONCE, On Nkechi 11/05/20 at 0945, For 1 dose, Maximum dose of acetaminophen is 4000 mg from all sources in 24 hours. Do not administer if patient has taken tylenol <4 hours earlier. Do not give if contraindicated ie. patient has active liver disease or cirrhosis., Pre-op (day of surgery) 1003 (Given - Provid er: Levon Nam, SHASTA) famotidine (PEPCID) tablet 20 mg (COMPLETED) 20 mg, Oral, ONCE, On Nkechi 11/05/20 at 0945, For 1 dose, Pre-op (day of surgery) 1004 (Given - Provid er: Levon Nam RN) ketorolac (TORADOL) injection 15 mg (COMPLETED) 15 mg, Intravenous, ONCE, On [place]kechi 11/05/20 at 1515, For 1 dose, PACU & Post-op, STAT 1450 (Given - Provid er: Latisha Luna RN) oxymetazoline (AFRIN) 0.05 % nasal spray 2 spray (COMPLETED) 2 spray, Each Nostril, BUNDLER TO O.R., On Nkechi 11/05/20 at 0945, For 1 dose, Pre-op (day of surgery) 1007 (Given - Provid er: Levon Nam RN) sodium chloride flush 0.9 % injection 10 mL 10 mL, Intravenous, EVERY 12 HOURS SCHEDULED (2 times per day), First dose on Nkechi 11/05/20 at 0945, Pre-op (day of surgery) 0945 (Due)2100 (Due) Continuous Medication Order 11/03/2020 11/04/2020 11/05/2020 lactated ringers infusion Intravenous, at 50 mL/hr, CONTINUOUS, Starting on Nkechi 11/05/20 at 0945, Upon admission to sameday - please start iv if patient does not have iv access. Use 500ml NS for patients on dialysis., Pre-op (day of surgery) 0945 (Due) PRN Medication Order 11/03/2020 11/04/2020 11/05/2020 0.9 % sodium chloride bolus 500 mL (12.3 mL/kg), Intravenous, at 250 mL/hr, Administer over 2 Hours, ONCE PRN, Nausea, Starting on Nkechi 11/05/20 at 1124, For 1 dose, PACU only 0.9 % sodium chloride infusion 25 mL, Intravenous, at 100 mL/hr, PRN, If patient receiving piggyback infusions without ordered maintenance IV fluids or with frequent/long duration piggyback infusions, Starting on Nkechi 11/05/20 at 0925, Administer at the same rate as the piggyback being infused., Pre-op (day of surgery) diphenhydrAMINE (BENADRYL) injection 12.5 mg 12.5 mg, Intravenous, ONCE PRN, Itching, Starting on Nkechi 11/05/20 at 1124, For 1 dose, PACU only hydrALAZINE (APRESOLINE) injection 5 mg 5 mg, Intravenous, EVERY 10 MIN PRN, High Blood Pressure, Starting on Nkechi 11/05/20 at 1124, PRN for SBP > 160 for 2 consecutive measurements, and if one of the following conditions is met: 1) If IV labetolol is ineffective. 2) If HR is under 60. 3) If patient has heart block, COPD or asthma. If both labetalol and hydralazine ineffective, notify anesthesiologist., PACU only HYDROmorphone (DILAUDID) injection 0.25 mg 0.25 mg, Intravenous, EVERY 5 MIN PRN, Pain Moderate (4-6), Starting on Nkechi 11/05/20 at 1124, For 4 doses, Phase I and Phase II- Initial therapy for moderate pain (4-6). Restricted to a 50 minute time frame starting when the patient can verbally state their pain score. If secondary medications are utilized, do not return to initial therapy medications. SDS and, PACU only 1321 (Given - Provid er: Latisha Luna RN)1410 (Given - Provider: Latisha Luna RN) HYDROmorphone (DILAUDID) injection 0.25 mg 0.25 mg, Intravenous, EVERY 5 MIN PRN, Pain Moderate (4-6), Starting on Nkechi 11/05/20 at 1124, For 4 doses, Phase I - Secondary therapy to be used after initial therapy medication doses are ineffective . If secondary medications are utilized, do not return to initial therapy medications., PACU only HYDROmorphone (DILAUDID) injection 0.5 mg 0.5 mg, Intravenous, EVERY 5 MIN PRN, Pain Severe (7-10), Starting on [place] 11/05/20 at 1124, For 4 doses, Phase I or Phase II- Initial therapy for severe pain (7-10). Restricted to a 50 minute time frame starting when the patient can verbally state their pain score. If secondary medications are utilized, do not return to initial therapy medications. Sameday and, PACU only labetalol (NORMODYNE;TRANDATE) injection 5 mg 5 mg, Intravenous, EVERY 10 MIN PRN, High Blood Pressure, Starting on [place] 11/05/20 at 1124, PRN for SBP >160 for 2 consecutive measurements, if HR is 60 or greater. If beta maxwell is contraindicated (HR less than 60, heart block, COPD or asthma) use hydralazine IV order., PACU only lidocaine PF 1 % injection 1 mL 1 mL, Intradermal, ONCE PRN, IV start, Starting on [place] 11/05/20 at 0925, For 1 dose, Pre-op (day of surgery) meperidine (DEMEROL) injection 12.5 mg 12.5 mg, Intravenous, EVERY 5 MIN PRN, Shivering, , Starting on [place] 11/05/20 at 1124, May give every 5 minutes to max of 50mg., PACU only ondansetron (ZOFRAN) injection 4 mg (COMPLETED) 4 mg, Intravenous, ONCE PRN, Nausea, Starting on [place] 11/05/20 at 1124, For 1 dose, Initial antiemetic therapy., PACU only 1304 (Given - Provid er: Latisha Luna RN) promethazine (PHENERGAN) injection 6.25 mg 6.25 mg, Intravenous, ONCE PRN, Nausea, Starting on [place] 11/05/20 at 1124, For 1 dose, Caution if used IV:Check IV site for infiltrate prior to and during administration. Secondary antiemetic therapy. For IV administration, dilute to 10ml with normal saline. Must be administered over at least 10 minutes., PACU only sodium chloride flush 0.9 % injection 10 mL 10 mL, Intravenous, PRN, Line Care, After every IV line use, Starting on [place] 11/05/20 at 0925, Pre-op (day of surgery) INFORMATION SOURCE (unrecogn ized section and content) DATE CREATED AUTHOR 11/09/2020 [facility] DATE CREATED AUTHOR AUTHOR'S ORGANIZ ATION 03/09/2021 [facility] ([place]) DATE CREATED AUTHOR AUTHOR'S ORGANIZ ATION 06/16/2024 [facility] DATE CREATED AUTHOR AUTHOR'S ORGANIZ ATION 04/01/2025 [facility] Source Comments (unrecognize d section and content) In the event this informatio n is protected by the Federal Confidentiality of Alcohol and Drug Abuse Patient Records regulations: The Federal rules restrict any use of the information to criminally investigate or prosecute any alcohol or drug abuse patient.[facility] the event this information is protected by the Federal Confidentiality of Alcohol and Drug Abuse Patient Records regulations: The Federal rules restrict any use of the information to criminally investigate or prosecute any alcohol or drug abuse patient.[facility] the event this information is protected by the Federal Confidentiality of Alcohol and Drug Abuse Patient Records regulations: The Federal rules restrict any use of the information to criminally investigate or prosecute any alcohol or drug abuse patient.[facility] the event this information is protected by the Federal Confidentiality of Alcohol and Drug Abuse Patient Records regulations: The Federal rules restrict any use of the information to criminally investigate or prosecute any alcohol or drug abuse patient.[facility] the event this information is protected by the Federal Confidentiality of Alcohol and Drug Abuse Patient Records regulations: The Federal rules restrict any use of the information to criminally investigate or prosecute any alcohol or drug abuse patient.[facility] the event this information is protected by the Federal Confidentiality of Alcohol and Drug Abuse Patient Records regulations: The Federal rules restrict any use of the information to criminally investigate or prosecute any alcohol or drug abuse patient.[facility] the event this information is protected by the Federal Confidentiality of Alcohol and Drug Abuse Patient Records regulations: The Federal rules restrict any use of the information to criminally investigate or prosecute any alcohol or drug abuse patient.[facility] the event this information is protected by the Federal Confidentiality of Alcohol and Drug Abuse Patient Records regulations: The Federal rules restrict any use of the information to criminally investigate or prosecute any alcohol or drug abuse patient.[facility] the event this information is protected by the Federal Confidentiality of Alcohol and Drug Abuse Patient Records regulations: The Federal rules restrict any use of the information to criminally investigate or prosecute any alcohol or drug abuse patient.[facility] the event this information is protected by the Federal Confidentiality of Alcohol and Drug Abuse Patient Records regulations: The Federal rules restrict any use of the information to criminally investigate or prosecute any alcohol or drug abuse patient.[facility] the event this information is protected by the Federal Confidentiality of Alcohol and Drug Abuse Patient Records regulations: The Federal rules restrict any use of the information to criminally investigate or prosecute any alcohol or drug abuse patient.[facility] the event this information is protected by the Federal Confidentiality of Alcohol and Drug Abuse Patient Records regulations: The Federal rules restrict any use of the information to criminally investigate or prosecute any alcohol or drug abuse patient.[facility] the event this information is protected by the Federal Confidentiality of Alcohol and Drug Abuse Patient Records regulations: The Federal rules restrict any use of the information to criminally investigate or prosecute any alcohol or drug abuse patient.[facility] the event this information is protected by the Federal Confidentiality of Alcohol and Drug Abuse Patient Records regulations: The Federal rules restrict any use of the information to criminally investigate or prosecute any alcohol or drug abuse patient.[facility] the event this information is protected by the Federal Confidentiality of Alcohol and Drug Abuse Patient Records regulations: The Federal rules restrict any use of the information to criminally investigate or prosecute any alcohol or drug abuse patient.[facility] HospitalIn the event this information is protected by the Federal Confidentiality of Alcohol and Drug Abuse Patient Records regulations: The Federal rules restrict any use of the information to criminally investigate or prosecute any alcohol or drug abuse patient.[facility] Reason for Visit (unrecogniz ed section and content) Reason Comments Cough ST, stuffy nose x2 d ays Reason Comments Refill Request Reason Comments Sore Throat Runny nose,throwing up, cough x 2 days Reason Comments Results Reason Comments Sore Throat Fever, nausea, hives on arms and back, cough x 1 day Reason Comments podiatry referral Reason Comments New Pain Specialty Diagnoses / Procedures Referred By Frannie t Referred To Contact Podiatry Diagnoses Pain of foot, unspecified laterality Procedures CONSULT TO PODIATRY OFFICE/OUTPATIENT NEW HIGH MDM 60-74 MINUTES Yanira Madrigal PA-C [address] [place] [address] Referral ID Status Reason Start Date Expiration Date V isits Requested Visits Authorized [id number] Closed PCP Requested Referral 08/03/2022 08/03/2023 1 1 Reason Comments Anxiety Has been going on fo r a while. Reason Comments Med Change Request Reason Comments Medication Follow-up Reason Comments Rash Possible ringworm on chest, arms, armpits, inner legs x1.5 weeks Reason Onset Date Comments Refill Request 09/13/2024 Care Teams (unrecognized sec tion and content) Bartender Server Relationship Specialty Start Date End Date Curry Worley MD [address] [place] [address], [place] [address] PCP - General Pediatrics 08/04/14 Bartender Server Relationship Specialty Start Date End Date Curry Worley MD [address] [place] [address], [place] [address] PCP - General Pediatrics 08/04/14 Bartender Server Relationship Specialty Start Date End Date Curry Worley MD [address] [place] [address] [place] [address] PCP - General Pediatrics 08/04/14 Bartender Server Relationship Specialty Start Date End Date Curry Worley MD [address] [place] [address] [place] [address] PCP - General Pediatrics 08/04/14 Bartender Server Relationship Specialty Start Date End Date Curry Worley MD [address] [place] [address], [place] [address] PCP - General Pediatrics 08/04/14 Bartender Server Relationship Specialty Start Date End Date Curry Worley MD [address] [place] [address] [place] [address] PCP - General Pediatrics 08/04/14 Team Status: Active Member Role Status Dates Dr. Curry Worley MD Family Provider Active Dr. Curry Worley MD Primary Care Provider Active Team Status: Inactive Member Role Status Dates Dr. Curry Worley MD Primary Care Provider, Referring Provider Active Karley Hi CNM Attending Provider Active Team Status: Inactive Member Role Status Dates Dr. Curry Worley MD Primary Care Provider Active Karley Hi CNM Attending Provider, Referring Pr ovider Active Bartender Server Relationship Specialty Start Date End Date Curry Worley MD [address] [place] [address] [place] [address] PCP - General Pediatrics 08/04/14 Team Status: Inactive Member Role Status Dates Dr. Curry Worley MD Primary Care Provider Active Dr. Giuseppe Cote DO Emergency Provider Active Team Status: Inactive Member Role Status Dates Dr. Curry Worley MD Primary Care Provider Active Dr. Levon Wadsworth DO Attending Provider, Referrin g Provider Active Team Status: Inactive Member Role Status Dates Dr. Curry Worley MD Primary Care Provider Active Dr. Giuseppe Cote DO Attending Provider, Emergency Pr ovider Active Team Status: Active Member Role Status Dates Dr. Curry Worley MD Primary Care Provider Active Dr. Levon Wadsworth DO Attending Provider, Referrin g Provider Active Bartender Server Relationship Specialty Start Date End Date Curry Worley MD [address] [place] [address] PCP - General Pediatrics 08/04/14 Bartender Server Relationship Specialty Start Date End Date Curry Worley MD [address] [place] [address] PCP - General Pediatrics 08/04/14 Team Status: Active Member Role Status Dates Dr. Curry Worley MD Family Provider Active No Primary Care Physician Primary Care Provider Active Team Status: Inactive Member Role Status Dates Dr. Levon Wadsworth DO Attending Provider, Referrin g Provider Active No Primary Care Physician Primary Care Provider Active Bartender Server Relationship Specialty Start Date End Date Curry Worley MD [address] [place] [address] PCP - General Pediatrics 08/04/14 Bartender Server Relationship Specialty Start Date End Date Curry Worley MD [address] [place] [address] PCP - General Pediatrics 08/04/14 Bartender Server Relationship Specialty Start Date End Date Curry Worley MD [address] [place] [address] PCP - General Pediatrics 08/04/14 Goals (unrecognized section and content) Goals may be documented in a n alternate section FOR RECORDS PERTAINING TO PATIENTS WHO ARE OR HAVE BEEN ENROLLED IN A CHEMICAL DEPENDENCY/SUBSTANCEABUSE PROGRAM, SOME INFORMATION MAY BE OMITTED. This clinical summary was aggregated from multiple sources. Caution should be exercised in using it in the provision of clinical care. This summary normalizes information from multiple sources, and as a consequence, information in this document may materially change the coding, format and clinical context of patient data. In addition, data may be omitted in some cases. CLINICAL DECISIONS SHOULD BE BASED ON THE PRIMARY CLINICAL RECORDS. [employer] provides no warranty or guarantee of the accuracy or completeness of information in this document.
== END 2025-04-09 20:33 | disposition left against medical advice (07) ==
LOC: ED 20:36
PROVIDERS: PCP Pediatrics
DX: T14.8XXA Other injury of unspecified body region, initial encounter (principal)

== ENCOUNTER 2025-05-09 05:24 | Day surgery (SDC) | payer OTHER, SELFPAY ==
[2025-05-05 17:25] LABS: Magnesium 2.2 mg/dL (1.5-2.2)
[2025-05-09] VITALS (12 sets, daily range): BP systolic 112–133; BP diastolic 64–81; PULSE 86–154; RESP 16–24; TEMP 36.1–37.1; O2SAT 98–100; BMI 19.8
--- OUTSIDE RECORDS SUMMARY | 2025-05-09 05:28 | XMS RPT_ITS | CCD ---
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 Name Role Phone Curry Worley Primary Care [...] [CATS] Propensity to adverse reactions 8 Itching [facility] Work Phone: (17 sources) Dog; Translations: [DOGS] Propensity to adverse reactions 8 Itching [facility] Work Phone: (17 sources) House dust mite; Translations: [DUST MITES] Propensity to adverse reactions 8 [facility] Work Phone: (17 sources) Seasonal allergy; Translations: [SEASONAL ALLERGIES] Propensity to adverse reactions 4 Cough [facility] Work Phone: (17 sources) Bees; Translations: [BEES] Propensity to adverse reactions 8 Shortness of Breath [facility] Work Phone: Medications Current Medications Medication [...] injection 12.5 mg 168 hr ethinyl estradiol 0.55601 mg/hr / norelgestromin 0.91326 mg/hr transdermal system (20 sources) Progestin, Estrogen [...] on above: Take 2 tablets by mo [facility] once daily for 5 days. 1 ml [...] 0 Refill(s) Start Date: 03/20/19 Status: Ordered [facility] Allergy (1 source) Start: 08-14-2015 take 1 dose by mouth once daily [facility] Allergy Dose : 10 mg =, [...] TABLET PO Q4H 30 December 05, 2022 [id number] 200 actuat albuterol 0.09 mg/actuat metered dose [...] TRACY TH EVERY DAY COVID-19 antigen test ([employer] COVID-19 RAPID AT-HOME) kit (5 sources) Start: [...] Test Name Value Interpretation Reference Range Facility [facility] 06-13-2024 CNOV Office Visit (UCWSTR) ---- JACOBY FERREIRARRAleksey Dinh ([id number]) 1 F Date Time Provider Department 06/13/24 6:45 PM SIMONE FABIAN [facility] During your visit today, we recorded the following information about you: Temperature Pulse Respiration Blood pressure 98.8 degrees 71/minute 18/minute 107/66 Weight Last Period 49.8 kg 02/19/24 Simone Fabian, LIZ.DOOR INSTALLER 06/13/2024 7:02 PM Signed Subjective HPI Nontoxic-appearing [...] clinical p (more content not included)... Normal [facility] CNOVon 03-25-2024 CNOV Office Visit (PEDSWS) ---- SUGAR FERREIRA ([id number]) 1 F Date Time Provider Department 03/25/24 [...] and work SH: living with Boyfriend in [place] now PAST MEDICAL HISTORY Diagnosis Date Allergic rhinitis Nasal bones, closed fracture PMH - PAST MEDICAL HISTORY OF 01/26/09 normal color vision ROS for medication side effects: Abdominal pain: no Appetite problems: no Drowsiness: no Sleep problems: no Headaches: no Depression: no Suicidal ideation: no Agitation: no Yvette: no Tremors: no Weight change: no ADDITIONAL CONCERNS: 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 PHYSICAL EXAM: BP [...] PM Signed Pediatric Behavioral Health Providers - [facility] This list does not represent endorsement of any practice by [facility] Crisis hotline [phone] [employer] [phone] [place] [phone] [place] [phone] [place] [phone] [place] [email or web address] Debbie Zao [employer] [phone] [place] [phone] [place] [phone] [email or web address]/ [employer] [facility] [address] [facility] [phone] https://[email or web address]/ One Eighty [employer] [employer] [phone] [place] [phone] [email or web address]/ [facility] [address] [facility] [address] [place] [phone] [email or web address] [email or web address] [email or web address] [facility] Multiple locations [phone] [email or web address] hospitala [email or web address]/ [facility] [place] [phone] [place] [phone] [place] [phone] [place] [phone] [email or web address] / [email or web address] [address] [facility] [phone] [place] [address] [email or web address] [facility] [place] [address] Elizabet Rodriguez, [place] [phone] [place] [address] Stephany Rodriguez, [place] [phone] Please contact your insurance company for covered behavioral health services and providers. You may also locate mental health providers in your area by using these websites: [email or web address]://[email or web address] [email or web address]/the rapists/ [email or web address]://findtreatme nt.gov/ https://effectivech i (more content not included)... 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 Normal [facility] SUGAR FERREIRA ([id number]) 1 F Date Time Provider Department 06/18/23 ROBERTO PALOMINO [facility] During your visit today, we recorded [...] needed for nausea/vomiting. - COVID-19 antigen test ([employer] COVID-19 RAPID AT-HOME) kit 1 Each as [...] Encounter Status:Closed by CHALO GILMAN on 06/18/23 [facility] [place] CNOVon 06-17-2023 CNOV Office Visit (UCWSTR) ---- SUGAR FERREIRA ([id number]) 1 F Date Time Provider Department 06/17/23 [...] started abruptly. Patient states they have used leqp-vna-lvyqitw medication with some success. Patient states significant [...] mg by SUBDERMAL route. COVID-19 antigen test ([employer] COVID-19 RAPID AT-HOME) kit 1 Each as [...] motion. Ly (more content not included)... Normal [facility] FLUABV + SARS-CoV-2 Pnl Resp LON+prbon 06-17-2023 Influenza virus A and B RNA and SARS-CoV-2 (COVID-19) N gene panel LON+probe (Resp) COVID 19 RESULT: Not detected The method used is RT-PCR or an equivalent NAAT method. Reference Range (the expected result in uninfected individuals): Not detected INFLUENZA A PCR: Not detected INFLUENZA B PCR: Not detected Normal [facility] Comment on above: Performed By: #### 9 5422-2 #### [facility] CLIA [id number] [address] [place] [address] [place] Gram stain for investigation of transfusion reactionOrdered By: Karley Hi on 01-02-2023 Microscopic observation Gram stain Nom (Unsp spec) [facility] No Panel Informationon 01-02 POC Bacterial Vaginitis (Rapid) Negative [facility] Thin prep Papanicolaou smear with manual screeningOrdered By: Karley Hi on 01-02-2023 Genital Culture Presumptive C albicans [facility] Genital Culture Streptococcus agalactiae (B) [facility] Laboratory - Chemistry and C hemistry - challengeOrdered By: Jeremy Kirby on 12-15-2022 HCG ( test) Ql (U) Negative [facility] Comment on above: Very dilute urine sp ecimens, as indicated by a low specificgravity, may not contain specialty sales representative levels of hCG. If is still suspected, a first morning urinespecimen should be collected 48 hours later and tested. Laboratory - Chemistry and C hemistry - challengeOrdered By: Jose David Pavon on 12-07-2022 HCG ( test) Ql (U) Negative [facility] Comment on above: Very dilute urine sp ecimens, as indicated by a low specificgravity, may not contain specialty sales representative levels of hCG. If is still suspected, a first morning urinespecimen should be collected 48 hours later and tested. XR FOOT GENERAL 3V AP/LAT/OB L BILATERALon 09-26-2022 [facility] Basophil percentageOrdered B y: Karley Hi on 08-25-2022 C. trachomatis DNA LON+probe Ql (Unsp spec) Negative Negative [facility] Neisseria gonorrhoeae detect ion by PCROrdered By: Karley Hi on 08-25-2022 N. gonorrhoeae DNA LON+probe Ql (Cervical mucus) Negative Negative [facility] STREP A MOLECULAR (POC)on Procedural Control Valid [facility] Strep A (POCT) Negative Negative [facility] STREP A MOLECULAR (POC)on Procedural Control Valid [facility] Strep A (POCT) Negative Negative [facility] LABORATORYOrdered By: Brianna Coulter on 03-08-2021 [...] Auto Viro/Sero SS EMPLOYED IN A HEALTHCARE SETTING:FIND:PT:^TFIFANIE ENT:ORD: No (03/08/21 3:05 AM) Invalid Interpretation [...] notified. Results have been reported to the [facility]. Kirill 03-08-2021 Adenovirus Not detected Normal Not Detected [facility] ([place]) Comment on above: Performed By: #### R ESCVID #### [place] [address] Bordetella Parapertussis Not detected Normal Not Detected [facility] ([place]) Comment on above: Performed By: #### R ESCVID #### [place] [address] Bordetella Pertussis Not detected Normal Not Detected [facility] ([place]) Comment on above: Performed By: #### R ESCVID #### [place] [address] Chlamydophila pneumoniae Not detected Normal Not Detected [facility] ([place]) Comment on above: Performed By: #### R ESCVID #### [place] [address] Coronavirus 229E (Not COVID-19) Not detected Normal Not Detected [facility] ([place]) Comment on above: Performed By: #### R ESCVID #### [place] [address] Coronavirus HKU1 (Not COVID-19) Not detected Normal Not Detected [facility] ([place]) Comment on above: Performed By: #### R ESCVID #### [place] [id number] Coronavirus NL63 (Not COVID-19) Not detected Normal Not Detected [facility] ([place]) Comment on above: Performed By: #### R ESCVID #### [place] [id number] Coronavirus OC43 (Not COVID-19) Not detected Normal Not Detected [facility] ([place]) Comment on above: Performed By: #### R ESCVID #### [facility] [address] [place] [address] Date of Onset [id number] Invalid Interpretation Code [facility] ([place]) Comment on above: Performed By: #### R ESCVID #### [facility] [address] [place] [address] Employed in Healthcare No Normal [facility] ([place] Comment on above: Performed By: #### R ESCVID #### [facility] [address] [place] [address] First Test No Normal [facility] ([place] Comment on above: Performed By: #### R ESCVID #### [facility] [address] [place] [address] Hospitalized No Normal [facility] ([place]) Comment on above: Performed By: #### R ESCVID #### [facility] [address] [place] [address] Human Metapneumovirus Not detected Normal Not Detected [facility] ([place] Comment on above: Performed By: #### R ESCVID #### [facility] [address] [place] [address] ICU No Normal [facility] ([place] Comment on above: Performed By: #### R ESCVID #### [facility] [address] [place] [address] Influenza A Not detected Normal Not Detected [facility] ([place]) Comment on above: Performed By: #### R ESCVID #### [facility] [address] [place] [address] Influenza B Not detected Normal Not Detected [facility] ([place] Comment on above: Performed By: #### R ESCVID #### [facility] [address] [place] [address] Mycoplasma pneumoniae Not detected Normal Not Detected [facility] ([place] Comment on above: Performed By: #### R ESCVID #### [facility] [address] [place], [place] [id number] Parainfluenza 1 Not detected Normal Not Detected [facility] ([place]) Comment on above: Performed By: #### R ESCVID #### [place] [address] Parainfluenza 2 Not detected Normal Not Detected [facility] ([place] Comment on above: Performed By: #### R ESCVID #### [place] [address] Parainfluenza 3 Not detected Normal Not Detected [facility] ([place] Comment on above: Performed By: #### R ESCVID #### [place] [address] Parainfluenza 4 Not detected Normal Not Detected [facility] ([place] Comment on above: Performed By: #### R ESCVID #### [place] [address] Unknown Normal [facility] ([place] Comment on above: Performed By: #### R ESCVID #### [place] [address] Resides in Congregate Care Setting No Normal [facility] ([place] Comment on above: Performed By: #### R ESCVID #### [place] [address] Respiratory Syncytial Virus Not detected Normal Not Detected [facility] ([place] Comment on above: Performed By: #### R ESCVID #### [place] [address] Rhinovirus/Enteroviru s Not detected Normal Not Detected [facility] ([place] Comment on above: Performed By: #### R ESCVID #### [place] [address] SARS-CoV-2 (COVID-19) RNA LON+probe Ql (Unsp spec) Detected Abnormal Not Detected [facility] ([place] Comment on above: Result Comment: This organism causes a reportable disease. Infection Control has been notified. Results have been reported to the [facility]. This test is being used under the FDA EUA procedure. This assay has been validated in the [facility] for use with nasopharyngeal specimens in [facility]. If a non-validated specimen or test collection [...] authorities. Performed By: #### R ESCVID #### [address] [address] Symptomatic as Defined by CDC Yes Normal [facility] ([place]) Comment on above: Performed By: #### R ESCVID #### [address] [address] HCG,Urine Qualon 11-05-2020 Beta HCG ( test) Ql (U) Negative Normal Negative [facility] Comment on above: Result Comment: Isaias ricketts note: Very dilute urine specimens, as indicated by a low specific gravity, may not contain specialty sales representative levels of hCG. If is still suspected, a first morning urine specimen should be collected 48 hours later and tested. is the most common reason for HCG in urine, although choriocarcinoma, hydatidiform mole, and certain nontropho- blastic malignancies also result in detectable urinary HCG levels. Sensitivity = 20mIU/mL. Performed By: #### H CGUR #### [facility] [address] [place] [address] , urine LABOrdered By: Sunil Schaeffer on 11-05-2020 Beta HCG ( test) Ql (U) Negative Negative NA [employer] Work Phone: Comment on above: Please note: Very di lute urine specimens, as indicated by a low specific gravity, may not contain specialty sales representative levels of hCG. If is still suspected, a first morning urine specimen should be collected 48 hours later and tested. is the most common reason for HCG in urine, although choriocarcinoma, hydatidiform mole, and certain nontropho- blastic malignancies also result in detectable urinary HCG levels. Sensitivity = 20mIU/mL. Test Performed by [employer] [facility], [address] , [place], [place] [address] [employer] Work Phone: [employer] Work Phone: Surgical Pathologyon [address] Surgical [address] [id number] [facility] DEPART[facility] PATHOLOGY AND LABORATORY MEDICINE [address] [place] [phone] Fax - FINAL SURGICAL PATHOLOGY REPORT NAME: SUGAR FERREIRA : 2005 14 Y F BILLING NO.: [id number] LOCATION: [facility] Cely PROCEDURE 11/05/2020 DATE: SURGEON: JARAD [...] Received in formalin labeled septal bone and cartilage are multiple flat estrella-white to white-franco tissue segments aggregating to 3 x 3 cm. Some of the tissue is pliable and resembles cartilage while other segments are hard and resemble bone. The specimen is grossly unremarkable. No sections. B. Received in formalin labeled bilateral partial turbinates within a plastic suction collection device are [...] characteristics determined by the clinical laboratories of [facility]. They have not been cleared by the [...] negativity on decalcified specimens. Case reviewed at [place] [address] [place] [address]. DEPARTMENT OF PATHOLOGY AND LABORATORY MEDICINE [place], [place] [address] [email or web address] Normal [facility] PREGUon 06-16-2020 HCG ( test) Ql (U) Negative Normal [facility] ([place]) Comment on above: Performed By: #### U A, PREGU #### [address] [address] test (u) int Not detected Invalid Interpretation Code [facility] ([place]) Comment on above: Performed By: #### U A, PREGU #### [address] [address] UAon 06-16-2020 Color (U) Yellow Normal [facility] ([place]) Comment on above: Performed By: #### U A, PREGU #### [address] [address] Glucose (U) [Mass/Vol] Negative Normal Negative [facility] ([place]) Comment on above: Performed By: #### U A, PREGU #### [address] [address] Ketones Ql (U) Negative Normal Negative [facility] ([place]) Comment on above: Performed By: #### U A, PREGU #### [address] [address] UA Appear Clear Normal Clear [facility] ([place]) Comment on above: Performed By: #### U A, PREGU #### [address] [address] UA Bili Small Abnormal Negative [facility] ([place]) Comment on above: Performed By: #### U A, PREGU #### [address] [address] UA Blood Negative Normal Negative [facility] ([place] Comment on above: Performed By: #### U A, PREGU #### [address] [address] UA Leuk Est Negative Normal [facility] [place] Comment on above: Performed By: #### U A, PREGU #### [address] [address] UA Nitrite Negative Normal Negative [facility] ([place] Comment on above: Performed By: #### U A, PREGU #### [address] [address] UA pH 6.0 Normal 5.0 - 8.0 [facility] ([place] Comment on above: Performed By: #### U A, PREGU #### [address] [address] UA Protein Negative Normal Negative [facility] ([place] Comment on above: Performed By: #### U A, PREGU #### [address] [address] UA Spec Grav 1.015 Normal 1.015-1.025 [facility] ([place]) Comment on above: Performed By: #### U A, PREGU #### [address] [address] UA Specimen Type Clean Catch Normal [facility] ([place] Comment on above: Performed By: #### U A, PREGU #### [address] [address] UA Urobilinogen 0.2 E.U./dL Normal 0.2-1.0 [facility] ([place]) Comment on above: Performed By: #### U A, PREGU #### [address] [address] Vital Signs Date Time Vital Sign Value Performing Clinician Facility 06-13-2024 18:47-0500 Body mass index (BMI) [Ratio] 19.14 kg/m2 [facility] L[facility].DOOR INSTALLER Work Phone: [facility] 06-13-2024 18:47-0500 Body temperature 98.8 [degF] [facility].DOOR INSTALLER Work Phone: [facility] 06-13-2024 18:47-0500 Body weight 49.8 kg [facility].DOOR INSTALLER Work Phone: [facility] 06-13-2024 18:47-0500 Diastolic blood pressure 66 mm[Hg] [facility].DOOR INSTALLER Work Phone: [facility] 06-13-2024 18:47-0500 Heart rate 71 /min [facility].DOOR INSTALLER Work Phone: [facility] 06-13-2024 18:47-0500 Respiratory rate 18 /min [facility].DOOR INSTALLER Work Phone: [facility] 06-13-2024 18:47-0500 SaO2% (BldA) [Mass fraction] 99 % [facility].DOOR INSTALLER Work Phone: [facility] 06-13-2024 18:47-0500 Systolic blood pressure 107 mm[Hg] [facility].DOOR INSTALLER Work Phone: [facility] 03-25-2024 13:08-0400 Body mass index (BMI) [Ratio] 19.3 kg/m2 Curry Worley MD Work Phone: [facility] 03-25-2024 13:08-0400 Body temperature 98.01 [degF] Curry Worley MD Work Phone: [facility] 03-25-2024 13:08-0400 Body weight 50.2 kg Curry Worley MD Work Phone: [facility] 03-25-2024 13:08-0400 Diastolic blood pressure 60 mm[Hg] Curry Worley MD Work Phone: [facility] 03-25-2024 13:08-0400 Heart rate 72 /min Curry Worley MD Work Phone: [facility] 03-25-2024 13:08-0400 Respiratory rate 20 /min Curry Worley MD Work Phone: [facility] 03-25-2024 13:08-0400 Systolic blood pressure 98 mm[Hg] Curry Worley MD Work Phone: [facility] 10-12-2023 14:50-0400 Body height 161.3 cm Curry Worley MD Work Phone: [facility] 10-12-2023 14:50-0400 Body mass index (BMI) [Ratio] 18.78 kg/m2 Curry Worley MD Work Phone: [facility] 10-12-2023 14:50-0400 Body temperature 99.19 [degF] Curry Worley MD Work Phone: [facility] 10-12-2023 14:50-0400 Body weight 48.85 kg Curry Worley MD Work Phone: [facility] 10-12-2023 14:50-0400 Diastolic blood pressure 60 mm[Hg] Curry Worley MD Work Phone: [facility] 10-12-2023 14:50-0400 Heart rate 88 /min Curry Worley MD Work Phone: [facility] 10-12-2023 14:50-0400 Respiratory rate 20 /min Curry Worley MD Work Phone: [facility] 10-12-2023 14:50-0400 Systolic blood pressure 100 mm[Hg] Curry Worley MD Work Phone: [facility] 01-02-2023 09:53-0400 Body height 165.[address] Curry Worley Work Phone: [facility] 01-02-2023 09:53-0400 Body mass index (BMI) [Percentile] Per age and sex 0.2 % Dr. Curry Worley Work Phone: [facility] 01-02-2023 09:53-0400 Body mass index (BMI) [Ratio] 16 kg/m2 Dr. Curry Worley Work Phone: 0(364)[phone] [place] [address] 01-02-2023 09:53-0400 Body weight 43.[address] Curry Worley Work Phone: 3(043)382-715565 [place] [address] 01-02-2023 09:53-0400 Diastolic blood pressure 82 mm[Hg] Dr. Curry Worley Work Phone: 8(829)182-737165 [place] [address] 01-02-2023 09:53-0400 Systolic blood pressure 127 mm[Hg] Dr. Curry Worley Work Phone: 5(376)569-780265 [place] [address] 12-15-2022 14:45-0400 Body temperature 97.2 [degF] Dr. Curry Worley Work Phone: 4(772)496-782565 [place] [address] 12-15-2022 14:45-0400 Diastolic blood pressure 55 mm[Hg] Dr. Curry Worley Work Phone: 4(363)829-431265 [place] [address] 12-15-2022 14:45-0400 Heart rate 77 /min Dr. Curry Worley Work Phone: 8(879)874-498465 [place] [address] 12-15-2022 14:45-0400 Respiratory rate 16 /min Dr. Curry Worley Work Phone: 2(976)955-413065 [place] [address] 12-15-2022 14:45-0400 SaO2% (BldA) [Mass fraction] 100 % Dr. Curry Worley Work Phone: 7(190)512-651765 [place] [address] 12-15-2022 14:45-0400 Systolic blood pressure 104 mm[Hg] Dr. Curry Worley Work Phone: 6(660)482-604265 [place] [address] 12-15-2022 09:32-0400 Body height 165.[address] Curry Worley Work Phone: 4(035)419-944665 [place] [address] 12-15-2022 09:32-0400 Body mass index (BMI) [Percentile] Per age and sex 5.9 % Dr. Curry Worley Work Phone: 1(574)915-272065 [place] [address] 12-15-2022 09:32-0400 Body mass index (BMI) [Ratio] 17.9 kg/m2 Dr. Curry Worley Work Phone: 3(618)354-805865 [place] [address] 12-15-2022 09:32-0400 Body weight 48.[address] Curry Worley Work Phone: 7(554)868-766465 [place] [address] 12-07-2022 16:30-0400 Body temperature 98 [degF] Dr. Curry Worley Work Phone: 3(682)632-536165 [place] [address] 12-07-2022 16:30-0400 Diastolic blood pressure 68 mm[Hg] Dr. Curry Worley Work Phone: 7(821)070-792665 [place] [address] 12-07-2022 16:30-0400 Heart rate 77 /min Dr. Curry Worley Work Phone: 3(798)515-410865 [place] [address] 12-07-2022 16:30-0400 Respiratory rate 16 /min Dr. Curry Worley Work Phone: 3(659)378-933665 [place] [address] 12-07-2022 16:30-0400 SaO2% (BldA) [Mass fraction] 98 % Dr. Curry Worley Work Phone: 2(082)994-794165 [place] [address] 12-07-2022 16:30-0400 Systolic blood pressure 110 mm[Hg] Dr. Curry Worley Work Phone: 1(051)412-396265 [place] [address] 12-07-2022 11:33-0400 Body mass index (BMI) [Percentile] Per age and sex 10.9 % Dr. Curry Worley Work Phone: 0(987)739-882765 [place] [address] 12-07-2022 11:33-0400 Body mass index (BMI) [Ratio] 18.5 kg/m2 Dr. Curry Worley Work Phone: 6(556)985-031965 [place] [address] 12-07-2022 11:33-0400 Body weight 48.[address] Curry Worley Work Phone: 3(103)311-746265 [place] [address] 12-05-2022 03:55-0400 Diastolic blood pressure 65 mm[Hg] Dr. Curry Worley Work Phone: 9(373)308-372565 [place] [address] 12-05-2022 03:55-0400 Heart rate 65 /min Dr. Curry Worley Work Phone: 3(497)825-846852 [place] [address] 12-05-2022 03:55-0400 SaO2% (BldA) [Mass fraction] 100 % Dr. Curry Worley Work Phone: 9(177)388-764165 [place] [address] 12-05-2022 03:55-0400 Systolic blood pressure 110 mm[Hg] Dr. Curry Worley Work Phone: 8(611)098-563565 [place] [address] 12-05-2022 00:44-0400 Body height 162.[address] Curry Worley Work Phone: 8(794)890-810065 [place] [address] 12-05-2022 00:44-0400 Body mass index (BMI) [Percentile] Per age and sex 98.7 % Dr. Curry Worely Work Phone: 6(799)035-538565 [place] [address] 12-05-2022 00:44-0400 Body mass index (BMI) [Ratio] 40.9 kg/m2 Dr. Curry Worley Work Phone: 8(839)624-802665 [place] [address] 12-05-2022 00:44-0400 Body temperature 97.6 [degF] Dr. Curry Worley Work Phone: 2(683)367-462965 [place] [address] 12-05-2022 00:44-0400 Body weight 108.[address] Crury Worley Work Phone: 5(971)828-357665 [place] [address] 12-05-2022 00:44-0400 Respiratory rate 18 /min Dr. Curry Worley Work Phone: 4(464)797-076865 [place] [address] 08-25-2022 14:07-0400 Body height 160.[address] Curry Worley Work Phone: 3(700)769-933565 [place] [address] 08-25-2022 14:00-0400 Body mass index (BMI) [Percentile] Per age and sex 8.6 % Dr. Curry Worley Work Phone: 3(027)328-874465 [place] [address] 08-25-2022 14:00-0400 Body mass index (BMI) [Ratio] 18.2 kg/m2 Dr. Curry Worley Work Phone: 3(926)773-946465 [place] [address] 08-25-2022 14:00-0400 Body weight 46.[address] Curry Worley Work Phone: [facility] 08-25-2022 14:00-0400 Diastolic blood pressure 62 mm[Hg] Dr. Curry Worley Work Phone: [facility] 08-25-2022 14:00-0400 Systolic blood pressure 98 mm[Hg] Dr. Curry Worley Work Phone: [facility] 06-22-2022 13:33-0500 Body temperature 97.3 [degF] Alexi Rai MD Work Phone: [facility] 06-22-2022 13:33-0500 Body weight 45.54 kg Alexi Rai MD Work Phone: [facility] 06-22-2022 13:33-0500 Diastolic blood pressure 62 mm[Hg] Alexi Rai MD Work Phone: [facility] 06-22-2022 13:33-0500 Heart rate 100 /min Alexi Rai MD Work Phone: [facility] 06-22-2022 13:33-0500 Respiratory rate 21 /min Alexi Rai MD Work Phone: [facility] 06-22-2022 13:33-0500 SaO2% (BldA) [Mass fraction] 99 % Alexi Rai MD Work Phone: [facility] 06-22-2022 13:33-0500 Systolic blood pressure 90 mm[Hg] Alexi Rai MD Work Phone: [facility] 01-09-2022 12:49-0400 Body temperature 98.4 [degF] Brigid Vázquez APRN.DOOR INSTALLER Work Phone: [facility] 01-09-2022 12:49-0400 Body weight 42.09 kg Brigid Vázquez APRN.DOOR INSTALLER Work Phone: [facility] 01-09-2022 12:49-0400 Diastolic blood pressure 54 mm[Hg] Brigid Vázquez APRN.DOOR INSTALLER Work Phone: [facility] 01-09-2022 12:49-0400 Heart rate 91 /min Brigid Vázquez LPC.DOOR INSTALLER Work Phone: [facility] 01-09-2022 12:49-0400 Respiratory rate 21 /min Brigid Vázquez APRN.DOOR INSTALLER Work Phone: [facility] 01-09-2022 12:49-0400 SaO2% (BldA) [Mass fraction] 99 % Brigid Vázquez APRN.DOOR INSTALLER Work Phone: [facility] 01-09-2022 12:49-0400 Systolic blood pressure 92 mm[Hg] Brigid Vázquez APRN.DOOR INSTALLER Work Phone: [facility] 09-22-2021 15:56-0400 Body temperature 98.71 [degF] Rema Athy PA-C Work Phone: [facility] 09-22-2021 15:56-0400 Body weight 44.36 kg Rema Athy PA-C Work Phone: [facility] 09-22-2021 15:56-0400 Diastolic blood pressure 70 mm[Hg] Rema Athy PA-C Work Phone: [facility] 09-22-2021 15:56-0400 Heart rate 80 /min Rema Athy PA-C Work Phone: [facility] 09-22-2021 15:56-0400 Respiratory rate 20 /min Rema Athy PA-C Work Phone: [facility] 09-22-2021 15:56-0400 SaO2% (BldA) [Mass fraction] 99 % Rema Athy PA-C Work Phone: [facility] 09-22-2021 15:56-0400 Systolic blood pressure 102 mm[Hg] Rema Athy PA-C Work Phone: [facility] 03-08-2021 02:22-0400 Body height 160 cm CATHRNY GUERRA [facility] 03-08-2021 02:22-0400 Body temperature 101.84 [degF] CATHRYN GUERRA MD [facility] 03-08-2021 02:22-0400 Body weight 45.1 kg CATHRYN GUERRA MD [facility] 03-08-2021 02:22-0400 Heart rate 120 /min CATHRYN GUERRA MD [facility] 03-08-2021 02:22-0400 Respiratory rate 24 /min CATHRYN GUERRA MD [facility] 11-05-2020 13:30-0400 Diastolic blood pressure 85 mm[Hg] [employer] Phone: [employer] Work Phone: 11-05-2020 13:30-0400 Heart rate 84 /min [employer] Work Phone: [employer] Work Phone: 11-05-2020 13:30-0400 Respiratory rate 18 /min [employer] Phone: [employer] Work Phone: 11-05-2020 13:30-0400 SaO2% (BldA) [Mass fraction] 96 % [employer] Work Phone: [employer] Work Phone: 11-05-2020 13:30-0400 Systolic blood pressure 115 mm[Hg] [employer] Work Phone: [employer] Work Phone: 11-05-2020 12:40-0400 Body temperature 97.59 [degF] [employer] Work Phone: [employer] Work Phone: 11-05-2020 09:57-0400 Body height 160 cm [employer] Work Phone: [facility] Work Phone: 11-05-2020 09:39-0400 Body mass index (BMI) [Ratio] 15.84 kg/m2 Jarad Terrell [employer] Work Phone: [employer] Work Phone: 11-05-2020 09:39-0400 Body weight 40.55 kg Jarad Terrell [employer] Work Phone: [employer] Work Phone: Encounters Encounter Date Encounter Type Care Provider Facility Start: 05-09-2025 ambulatory [facility] Facility: [facility] Start: 09-13-2024 End: 09-14-2024 Refill Curry Worley MD Work Phone: [facility] [employer] Comment on above: Refill Request Start: 06-13-2024 End: 06-13-2024 ambulatory CURRY WORLEY Facility:[facility] Start: 06-13-2024 End: 06-13-2024 Office outpatient visit 15 minutes Simone Fabian APRN.CNP [facility] Comment on above: Rash (Primary Dx) Start: 03-25-2024 End: 03-25-2024 ambulatory CURRY WORLEY Facility:[facility] Start: 03-25-2024 End: 03-25-2024 Office outpatient visit 25 minutes Curry Worley MD Work Phone: [facility] Comment on above: MARIA DE JESUS (generalized anx iety disorder) (Primary Dx) Start: 11-03-2023 Refill Curry Worley MD Work Phone: [facility] [employer] Comment on above: Med Change Request Start: 10-12-2023 End: 10-12-2023 ambulatory CURRY WORLEY Facility:[facility] Start: 10-12-2023 End: 10-12-2023 Office outpatient visit 25 minutes Curry Worley MD Work Phone: [facility] Comment on above: MARIA DE JESUS (generalized anx iety disorder) (Primary Dx); Adjustment disorder with depressed mood Start: 08-23-2023 End: 08-23-2023 ambulatory [facility] Work Phone: Start: 08-23-2023 End: 08-23-2023 Patient encounter procedure [facility]MRI - [facility] Work Phone: Start: 06-18-2023 Telephone encounter Roberto ZAMORA Work Phone: [facility] Comment on above: Results Start: 06-17-2023 End: 06-17-2023 ambulatory CURRY WORLEY Facility:[facility] Start: 04-24-2023 End: 04-24-2023 ambulatory [facility] Work Phone: Start: 04-24-2023 End: 04-24-2023 Discharged Recurring [facility]-Physical Therapy Work Phone: Start: 01-03-[address] Curry Worley Work Phone: [facility]-Physical Therapy Work Phone: Start: 01-02-2023 End: 01-02-[address] Curry Worley Work Phone: [facility] Work Phone: Start: 01-02-2023 End: 01-02-[address] Curry Worley Work Phone: [facility]-Laboratory, Specimen Work Phone: Start: 01-02-2023 End: 01-02-[address] Curry Worley Work Phone: [facility] Work Phone: Start: 12-15-2022 End: 12-15-2022 Admission to same day surgery center Dr. Curry Worley Work Phone: [facility]-Surgical Day Care Start: 12-15-2022 End: 12-15-[address] Curry Worley Work Phone: [facility] Work Phone: Start: 12-07-2022 End: 12-07-2022 Admission to same day surgery center Dr. Curry Worley Work Phone: [facility] Start: 12-05-2022 End: 12-05-2022 Emergency department patient visit Dr. Curry Worley Work Phone: [facility]-Emergency Department Work Phone: Start: 09-26-2022 End: 09-26-2022 Patient encounter procedure Sandoval Adam Work Phone: Podiatry Comment on above: Posterior tibial ten don dysfunction (Primary Dx); Pes planus of both feet; 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 Start: 09-26-2022 End: 09-26-2022 Subsequent hospital visit by physician [facility] Work Phone: Radiology Comment on above: Bilateral foot pain [M79.671, M79.672] Start: 08-25-2022 End: 08-25-[address] Curry Worley Work Phone: [facility] Work Phone: Start: 08-25-2022 End: 08-25-[address] Curry Worley Work Phone: [facility]-Laboratory, Specimen Start: 08-25-2022 End: 08-25-[address] Curry Worley Work Phone: [facility] Start: 08-16-2022 Orders Only Sandoval hoyos Work Phone: Podiatry Comment on above: Bilateral foot pain (Primary Dx) Start: 08-03-2022 Telephone encounter Curry spivey MD Work Phone: [facility] [employer] Comment on above: podiatry referral Start: 06-22-2022 End: 06-22-2022 Patient encounter procedure Alexi Rai MD Work Phone: [facility] Comment on above: Influenza-like illne ss (Primary Dx); Sore throat Start: 04-26-2022 Telephone encounter Wen Florence LPC.DOOR INSTALLER Work Phone: [employer] [facility] Comment on above: Results Start: 01-10-2022 Telephone encounter Wen Henriquez LPC.DOOR INSTALLER Work Phone: [facility] Comment on above: Results Start: 01-09-2022 End: 01-09-2022 Patient encounter procedure Brigid Vázquez LPC.DOOR INSTALLER Work Phone: [facility] Comment on above: Sore throat (Primary Dx); At increased risk of exposure to COVID-19 virus; Acute cough Start: 09-23-2021 Refill Rema R Athy PA -C Work Phone: [facility] [facility] Comment on above: Refill Request Start: 09-22-2021 End: 09-22-2021 Patient encounter procedure Rema R Athy PA-C Work Phone: [facility] Comment on above: Bronchitis (Primary Dx) Start: 03-08-2021 End: 03-08-2021 Emergency department patient visit CATHRYN GUERRA MD [facility] Start: 11-05-2020 End: 11-05-2020 Subsequent hospital visit by physician Jarad Terrell DO Work Phone: [facility] Comment on above: Arrived Procedures Date Procedure Procedure Detail Performing Clinician Start: 03-25-2024 Adult depression scr eening assessment Simone Fabian LPC.DOOR INSTALLER Work Phone: Start: 08-23-2023 MRI of joint [...] Radex foot complete minimum 3 views Sandoval Kia Work Phone: Start: 06-22-2022 STREP A MOLECULAR (POC) Alexi Rai MD Work Phone: Start: 01-09-2022 STREP A MOLECULAR (POC) Brigid Vázquez APRN.DOOR INSTALLER Work Phone: Start: 11-05-2020 Urine test visual color cmprsn meths Sunil Schaeffer MD Work Phone: Start: 10-16-2019 Adult depression scr eening assessment Rema Gonzalez PA-C Work Phone: Operation on nose CATHRYN Shabazz [...] Work Phone: Start: 01-17-2026 Urine microalbumin profile [facility] Start: 03-25-2025 Depression Screening Depression Scre ening [facility] Start: 10-11-2024 Anxiety Screening Anxiety Screening [facility] Start: 10-07-2024 End: 10-07-2024 Patient encounter procedure 10/07/2024 11:10 AM EDT Office Visit OB/Gynecology [address] [place] [address] Laurent Hicks MD [address] [place] [address] control OB/Gynecology Comment on above: control Start: 04-29-2024 End: 04-29-2024 Patient encounter procedure 04/29/2024 8:30 AM EST Office Visit [facility] [address] [place] [address] Curry Worley MD [address] [place], [place] [id number] med check [facility] Comment on above: med check Start: 01-28-2024 Covid-19 Vaccine ( season) Covid-19 Vaccine () [facility] Start: 01-28-2024 Influenza vaccination [facility] Start: 11-13-2023 End: 11-13-2023 Patient encounter procedure 11/13/2023 8:00 AM EDT Office Visit [facility] [address] [place] [address] Curry Worley MD [address] [place] [address] 1 month med check [facility] Comment on above: 1 month med check Start: 05-29-2023 Behavioral Health Screening Behavioral Health Screening [facility] Start: 05-29-2023 Depression Assessment Depression Ass essment [facility] Start: 01-27-2023 Covid-19 Vaccine ( season) Covid-19 Vaccine () [facility] Start: 01-27-2023 Influenza vaccination [facility] Start: 12-15-2022 Application of ice collar, cap or bag [facility] Start: 12-15-2022 Elevation of affecte d extremity [facility] Start: 12-15-2022 Patient discharge [facility] Start: 12-15-2022 Catheterization of vein [facility] Start: 12-15-2022 Following clinical pathway protocol [facility] Start: 12-15-2022 Procedure discontinued [facility] Start: 12-15-2022 Taking patient vital signs [facility] Start: 12-15-2022 Vital signs measurements [facility] Start: 12-15-2022 [facility] Start: 12-15-2022 Anes open proc bones lower leg/ankle/foot nos ANESTH LOWER LEG BONE SURG [facility] Start: 12-15-2022 Open treatment fract ure distal tibia only TREAT LOWER LEG FRACTURE [facility] Start: 12-15-2022 Removal external fix ation system under anes REMOVE BONE FIXATION DEVICE [facility] Start: 12-15-2022 Medication education [facility] Start: 12-07-2022 Patient discharge [facility] Start: 12-07-2022 Application of ice collar, cap or bag [facility] Start: 12-07-2022 Catheterization of vein [facility] Start: 12-07-2022 Following clinical pathway protocol [facility] Start: 12-07-2022 Procedure discontinued [facility] Start: 12-07-2022 Taking patient vital signs [facility] Start: 12-07-2022 Vital signs measurements [facility] Start: 12-07-2022 End: 12-07-2022 [facility] Start: 12-07-2022 Anesthesia closed pr oc lower leg ankle & foot ANESTH LOWER LEG PROCEDURE [facility] Start: 12-07-2022 Cltx fx w8 brg artcl r prtn dstl tib w/skel tracj TREAT LOWER LEG FRACTURE [facility] Start: 12-07-2022 Medication education [facility] Start: 06-22-2022 End: 07-06-2022 Influenza virus A and B RNA and SARS-CoV-2 (COVID-19) N gene panel - Respiratory specimen by LON with probe detection COVID WITH FLUA+B, ROUTINE Microbiology Routine Sore throat Influenza-like illness Expected: 06/22/2022, Expires: 07/06/2022 [facility] Work Phone: Comment on above: Expected: 06/22/2022 , Expires: 07/06/2022 Start: 05-29-2022 DEPRESSION ASSESSMENT DEPRESSION ASS [facility] Start: 01-27-2022 Influenza vaccination C [facility] Start: 01-09-2022 End: 01-23-2022 Influenza virus A and B RNA and SARS-CoV-2 (COVID-19) N gene panel - Respiratory specimen by LON with probe detection COVID WITH FLUA+B, ROUTINE Microbiology Routine Sore throat At increased risk of exposure to COVID-19 virus Acute cough Expected: 01/09/2022, Expires: 01/23/2022 [facility] Work Phone: Comment on above: Expected: 01/09/2022 , Expires: 01/23/2022 Start: 12-05-2021 Anxiety Screening Anxiety Screening [facility] Start: 12-05-2021 CHLAMYDIA SCREENING (18-24) CHLAMYDIA SCREENING (18-24) [facility] Start: 12-05-2021 Depression Screening Depression Scre ening [facility] Start: 12-05-2021 GC (GONORRHEA) SCREE TALON (18-24) GC (GONORRHEA) SCREENING (18-24) [facility] Start: 12-05-2021 HEPATITIS C SCREENING HEPATITIS C [facility] Start: 12-05-2021 Hepatitis C screening Hepatitis C [facility] Start: 12-05-2021 HIV SCREENING HIV SCRE[facility] Start: 12-05-2021 HIV screening HIV Screening [facility] Start: 12-05-2021 Screening for Chlamy ayanna trachomatis Chlamydia Screening (18-) [facility] Start: 09-22-2021 End: 10-06-2021 COVID, FLU A/B + RSV, ROUTINE [facility] Work Phone: Comment on above: Expected: 09/22/2021 , Expires: 10/06/2021 Start: 05-29-2021 [facility] Start: 12-13-2020 Meningococcal B Vacc ine (2 of 2 - Bexsero SCDM 2-dose series) Meningococcal B Vaccine (2 of 2 - Bexsero SCDM 2-dose series) [facility] Start: 10-15-2020 Adult depression screening assessment DEPRESSION SCREENING [facility] Start: 07-13-2020 Meningococcal B Vacc ine: Consider Based On Risk (2 of 2 - Risk Bexsero 2-dose series) Meningococcal B Vaccine: Consider Based On Risk (2 of 2 - Risk Bexsero 2-dose series) [facility] Start: 07-13-2020 MENINGOCOCCAL B: Con pan devulcanizer helper based on risk (2 of 2 - Risk Bexsero 2-dose series) MENINGOCOCCAL B: Consider based on risk (2 of 2 - Risk Bexsero 2-dose series) [facility] Start: 2019 Screening for Chlamy ayanna trachomatis Chlamydia screen [facility] Work Phone: Start: 12-05-2018 CHLAMYDIA SCREENING (<18) CHLA MYDIA SCREENING (<18) [facility] Start: 12-05-2018 GC (GONORRHEA) SCREE TALON (<18) GC (GONORRHEA) SCREENING (<18) [facility] Start: 12-05-2018 HIV screening HIV screen [facility] Work Phone: Start: 12-05-2017 PEDS TO ADULT TRANSI TION ANNUAL ASSESSMENT PEDS TO ADULT TRANSITION ANNUAL ASSESSMENT [facility] Start: 2015 COVID-19 Vaccine (1) COVID-19 Vaccin e (1) [facility] Work Phone: Start: 2015 PEDS TO ADULT TRANSI TION INITIAL DISCUSSION PEDS TO ADULT TRANSITION INITIAL DISCUSSION [facility] Start: 12-05-2008 COVID-19 VACCINE (1) COVID-19 VACCIN E (1) [facility] Start: 12-05-2004 Hepatitis A vaccine (1 of 2 - 2-dose series) Hepatitis A vaccine (1 of 2 - 2-dose series) [facility] Work Phone: Start: 06-07-2004 COVID-19 VACCINE (#1) COVID-19 VACCI NE (#1) [facility] Start: 02-27-2004 Hepatitis B vaccine (2 of 3 - 3-dose primary series) Hepatitis B vaccine (2 of 3 - 3-dose primary series) [facility] Work Phone: End: 11-05-2020 Intermittent pulse oximetry Pulse Oximetry Spot Check Respiratory Care Routine One Time for 1 Occurrences starting 11/05/2020 until 11/05/2020 [facility] Work Phone: Comment on above: One Time for 1 Occur rences starting 11/05/2020 until 11/05/2020 Oxygen therapy [[facility] Data Set] Initiate Oxygen Therapy Protocol Respiratory Care Routine Daily until discontinued starting 11/05/2020 [facility] Work Phone: Comment on above: Daily until disconti nued starting 11/05/2020 Patient Education Ankle Fracture ORIF ED Splint Care, Fiberglass [facility] Work Phone: Patient referral [facility] Work Phone: Phase I & II - meter ed glucose Phase I & II - metered glucose Point of Care Testing Routine As Needed until discontinued starting 11/05/2020 [facility] Work Phone: Comment on above: As Needed until disc ontinued starting 11/05/2020 Spirometry panel Incentive tiffanie metry Respiratory Care Routine Q1H PRN until discontinued starting 11/05/2020 [facility] Work Phone: Comment on above: Q1H PRN until discon tinued starting 11/05/2020 End: 09-15-2023 XR FOOT GENERAL 3V AP/LAT/OBL BILATERAL XR FOOT GENERAL 3V AP/LAT/OBL BILATERAL Radiology Routine Bilateral foot pain 1 Occurrences starting 08/16/2022 until 09/15/2023 [facility] Work Phone: Comment on above: 1 Occurrences starti ng 08/16/2022 until 09/15/2023 [facility] Immunizations Immunization Date Immunization Notes Care Provider Storm giles 06-15-2020 influenza, injectabl e, quadrivalent, preservative free Rema Gonzalez PA-C Work Phone: [facility] 06-15-2020 meningococcal B vacc ine, recombinant, OMV, adjuvanted Rema Gonzalez PA-C Work Phone: [facility] 06-15-2020 meningococcal polysaccharide (groups A, C, Y and W-135) diphtheria toxoid conjugate vaccine (MCV4P) Rema ZAMORA-Natalia Work Phone: [facility] 06-15-2020 influenza virus vacc ine, unspecified formulation [employer] Work Phone: [facility] 05-06-2019 influenza, injectabl e, quadrivalent, preservative free Rema ZAMORA-Natalia Work Phone: [facility] 07-06-2018 influenza, injectabl e, quadrivalent, contains preservative Rema ZAMORA-C Work Phone: [facility] 12-05-2016 Human Papillomavirus 9-valent vaccine Rema ZAMORA-Natalia Work Phone: [facility] 01-18-2016 Human Papillomavirus 9-valent vaccine Rema ZAMORA-Natalia Work Phone: [facility] 01-18-2016 meningococcal polysaccharide (groups A, C, Y and W-135) diphtheria toxoid conjugate vaccine (MCV4P) Rema ZAMORA-Natalia Work Phone: [facility] 01-18-2016 tetanus toxoid, redu mayte diphtheria toxoid, and acellular pertussis vaccine, adsorbed Rema ZAMORA-C Work Phone: [facility] 04-06-2013 influenza virus vacc ine, unspecified formulation Rema ZAMORA-Natalia Work Phone: [facility] 03-17-2012 influenza virus vacc ine, unspecified formulation Rema ZAMORA-C Work Phone: [facility] 03-17-2012 influenza, seasonal, injectable, preservative free Rema ZAMORA-C Work Phone: [facility] 04-27-2010 influenza virus vacc ine, unspecified formulation Rema Gonzalez PA-C Work Phone: [facility] Work Phone: 03-25-2010 influenza virus vacc ine, unspecified formulation Rema Athy PA-C Work Phone: [facility] Work Phone: 01-26-2009 diphtheria, tetanus toxoids and acellular pertussis vaccine Rema Gonzalez PA-C Work Phone: [facility] Work Phone: 01-26-2009 measles, mumps and rubella virus vaccine Rema Gonzalez PA-C Work Phone: [facility] Work Phone: 01-26-2009 poliovirus vaccine, inactivated Rema Gonzalez PA-BEKIZ Work Phone: [facility] Work Phone: 01-26-2009 varicella virus vaccine Rema Gonzalez PA-C Work Phone: [facility] Work Phone: 03-10-2008 influenza virus vacc ine, live, attenuated, for intranasal use Rema ZAMORA-C Work Phone: [facility] Work Phone: 04-03-2007 influenza virus vacc ine, unspecified formulation Rema Gonzalez PA-C Work Phone: [facility] 06-29-2006 influenza virus vacc ine, unspecified formulation Rema Gonzalez PA-C Work Phone: [facility] Work Phone: 04-10-2006 influenza virus vacc ine, unspecified formulation Rema Gonzalez PA-C Work Phone: [facility] Work Phone: 03-09-2005 measles, mumps and rubella virus vaccine Rema Gonzalez PA-C Work Phone: [facility] Work Phone: 03-09-2005 pneumococcal conjuga te vaccine, 7 valent Rema Gonzalez PA-C Work Phone: [facility] Work Phone: 2004 hepatitis B vaccine, pediatric or pediatric/adolescent dosage Rema Gonzalez PA-C Work Phone: [facility] Work Phone: 2004 varicella virus vaccine Rema Baltazary PA-C Work Phone: [facility] Work Phone: 06-10-2004 diphtheria, tetanus toxoids and acellular pertussis vaccine Rema Athy PA-C Work Phone: [facility] Work Phone: 06-10-2004 haemophilus influenz ae type b vaccine, HbOC conjugate Rema Athy PA-C Work Phone: [facility] Work Phone: 06-10-2004 pneumococcal conjuga te vaccine, 7 valent Rema Athy PA-C Work Phone: [facility] Work Phone: 06-10-2004 poliovirus vaccine, inactivated Rema Athy PA-C Work Phone: [facility] Work Phone: 03-26-2004 diphtheria, tetanus toxoids and acellular pertussis vaccine Rema Athy PA-C Work Phone: [facility] Work Phone: 03-26-2004 haemophilus influenz ae type b vaccine, HbOC conjugate Rema Athy PA-C Work Phone: [facility] Work Phone: 03-26-2004 pneumococcal conjuga te vaccine, 7 valent Rema Athy PA-C Work Phone: [facility] Work Phone: 03-26-2004 poliovirus vaccine, inactivated Rema Athy PA-C Work Phone: [facility] Work Phone: 01-30-2004 DTaP-hepatitis B and poliovirus vaccine Rema Athy PA-C Work Phone: [facility] Work Phone: 01-30-2004 haemophilus influenz ae type b vaccine, HbOC conjugate Rema Athy PA-C Work Phone: [facility] Work Phone: 01-30-2004 pneumococcal conjuga te vaccine, 7 valent Rema Gonzalez PA-C Work Phone: [facility] Work Phone: 2003 hepatitis B vaccine, pediatric or pediatric/adolescent dosage eRma Gonzalez PA-C Work Phone: [facility] Work Phone: Payers Date Payer Category Payer Self-pay [id number] 2013 Medicaid [employer] [id number] 2013-Present [phone] [address] [place] [address] Medicaid [id number] 2013 Medicaid [id number] 2013 Unknown [employer] [id number] 2013 Unknown [id number] Unknown [id number] Social History Date Type Detail Facility Start: 11-05-2020 End: 04-26-2022 Tobacco smoking status NHIS Never smoker [facility] Work Phone: Start: 11-05-2020 End: 04-26-2022 Tobacco use and exposure [facility] used [facility] Start: 11-05-2020 End: 06-13-2024 Alcohol intake Current non-drinker of alcohol (finding) [facility] Work Phone: Start: 2005 Sex Assigned At Not on file [facility] Work Phone: Start: 09-10-2021 End: 04-26-2022 Exposure to SARS-CoV-2 (event) Not sure [facility] Sex Assigned At [facility] Start: 04-23-2010 End: 04-26-2022 Tobacco Comment g-parents and mom smoke outside, paternal g-parents and dad smoke inside [facility] History of tobacco use Passive smoker [facility] Work Phone: Start: 08-25-2022 End: 01-02-2023 Tobacco smoking status NHIS Unknown if ever smoked [facility] Start: 08-24-[address] [facility] Start: 2003 Sex Assigned At Female [facility] Start: 09-26-2022 End: 03-25-2024 History of Social function [facility] Start: 09-26-2022 End: 03-25-2024 Tobacco use panel [facility] National Score (1-100), lower number is lower risk 63 [facility] NEGATED: Highlighted row [facility] Medical Equipment Procedure Code Equipment Code Equipment Origin al Text Equipment Identifier Dates Removal, external fixation device DISTAL PLATE 4 HOLE FDA Start: 12-15-2022 Removal, external fixation device ()[id number] FDA Start: 12-15-2022 Removal, external fixation device ([id number]) ()[id number] FDA Start: 12-15-2022 Removal, external fixation device ([id number]) ()[id number] FDA Start: 12-15-2022 Removal, external fixation device ()[id number] FDA Start: 12-15-2022 Removal, external fixation device ()[id number] FDA Start: 12-15-2022 Removal, external fixation device ([id number]) ()[id number] FDA Start: 12-15-2022 Removal, external fixation device ([id number]) ()[id number] FDA Start: 12-15-2022 Removal, external fixation device ([id number]) ()[id number] FDA Start: 12-15-2022 Removal, external fixation device ()[id number] FDA Start: 12-15-2022 Removal, external fixation device ()[id number] FDA Start: 12-15-2022 Removal, external fixation device DISTAL PLATE 4 HOLE FDA Start: 12-15-2022 Removal, external fixation device DISTAL PLATE 4 HOLE FDA Start: 12-15-2022 ([id number]) External orthopa edic fixation system, reusable ()[id number] FDA Start: 12-07-2022 ([id number]) Orthopaedic bone pin, non-bioabsorbable ()[id number] FDA Start: 12-07-2022 ([id number]) Orthopaedic bone pin, non-bioabsorbable ()[id number] FDA Start: 12-07-2022 ([id number]) External orthopa edic fixation system, reusable ()[id number] FDA Start: 12-07-2022 ([id number]) External orthopa edic fixation system, reusable ()[id number] FDA Start: 12-07-2022 Goals Date Patient Goal Desired Activity /State Functional Status Date Assessment Result Facility 05-19-2014 Are you deaf, or do you have serious difficulty hearing No 05/19/2014 3:43 PM Theresa Alcala RN No [facility] 05-19-2014 Are you blind, or do you have serious difficulty seeing, even when wearing glasses No 05/19/2014 3:43 PM Theresa Alcala RN No [facility] 05-19-2014 Do you have serious difficulty walking or climbing stairs No 05/19/2014 3:43 PM Theresa Alcala RN No [facility] 05-19-2014 Do you have difficul ty dressing or bathing No 05/19/2014 3:43 PM Theresa Alcala RN No [facility] Mental Status Date Assessment Result Facility 12-15-2022 Cognitive function Level Of Cons ciousness Sedated [facility] Work Phone: 12-15-2022 Cognitive function Voice/Name [facility] Work Phone: 12-07-2022 [facility] function [facility] Work Phone: 05-19-2014 Because of a physica l, mental, or emotional condition, do you have serious difficulty concentrating, remembering, or making decisions No 05/19/2014 3:43 PM Theresa Alcala RN No [facility] Clinical Notes 11-05-2020 to 09-14-2024 Telephone Encounter - Austin Muniz RN - 09/14/2024 8:20 AM EDTTelephone Encounter - Austin Muniz RN - 09/14/2024 8:20 AM EDTTelephone Encounter - Kati Hernadez MD - 09/13/2024 6:08 PM EDT Note Date & Type Note Facility 09-14-2024 Telephone encounter Note Family aware. Austin Muniz RN [facility] 09-14-2024 Miscellaneous Notes Family aware. 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 Has appointment with our HOUSEHOLD REFRIGERATION MECHANIC scheduled but is out of birthcontrol. Wondering if we would call in until the scheduled appointment which is 10/07/2024. Austin Muniz RN documented in this encounter [facility] 09-13-2024 Telephone encounter Note PCP is [...] above. Please process accordingly. 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 Has appointment with our HOUSEHOLD REFRIGERATION MECHANIC scheduled but is out of birthcontrol. Wondering if we would call in until the scheduled appointment which is 10/07/2024. Austin Muniz RN [facility] 06-13-2024 Note HNO ID: [id number] Author: SIMONE FABIAN APRN.DOOR INSTALLER Service: ? Author Type: Nurse Practitioner Type: [...] of care. This note was generated using Holograam software. It may contain errors in wording, (more content not included)... [facility] 06-13-2024 History of Presen t illness Narrative [...] of care. This note was generated using Holograam software. It may contain errors in wording, punctuation, or spelling. Simone Fabian APRN.DOOR INSTALLER documented in this encounter [facility] 03-25-2024 Instructions Curry Worley MD - 03/25/2024 1:47 PM EDT Pediatric Behavioral Health Providers - [facility] This list does not represent endorsement of any practice by [facility] hotline [phone] [place] [phone] [place] [phone] [place] [phone] [place] [phone] [place] [email or web address] Debbie Zao [employer] [phone] [place] [phone] [place] [phone] [email or web address] Pte Ltdmmunitypartners .org/ [employer] [address] [facility] [phone] https://Redtree People/ One Eighty [employer] [phone] [place] [phone] [email or web address] [facility] [address] [place] [phone] [email or web address] [facility] Multiple locations [phone] [email or web address]/ [facility] [place] [phone] [place] [phone] [place] [phone] [place] [phone] [email or web address]/ [email or web address] [facility]6 [facility] [place] [phone] [address] [facility] [phone] [email or web address] [facility] [place] [address], [place] [phone] [facility] [address], [place] [phone] Please contact your insurance company for covered behavioral health services and providers. You may also locate mental health providers in your area by using these websites: https://www.psychologytoday.com /us/therapists/ https://findtreatment.gov/ https://effectivechildtherapy.o rg/tips-tools/hznevl-s-jkajzjca nhjd-frbz-qaj/ documented in this encounter [facility] 03-25-2024 Note HNO ID: [id number] Author: CURRY WORLEY MD Service: ? 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 PHYSICAL EXAM: BP [...] to adult primary care Curry Worley MD [facility] 03-25-2024 History of Presen t illness Narrative [...] and work SH: living with Boyfriend in [place] now PAST MEDICAL HISTORY Diagnosis Date Allergic rhinitis Nasal bones, closed fracture PMH - PAST MEDICAL HISTORY OF 01/26/09 normal color vision ROS for medication side effects: Abdominal pain: no Appetite problems: no Drowsiness: no Sleep problems: no Headaches: no Depression: no Suicidal ideation: no Agitation: no Yvette: no Tremors: no Weight change: no ADDITIONAL CONCERNS: 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 Requested Prescriptions Pending Prescriptions Disp Refills sertraline (ZOLOFT) 50 mg tablet [Pharmacy Med Name: SERTRALINE HCL 50 MG TABLET] 90 tablet 0 Sig: TAKE 1 TABLET BY MOUTH EVERY DAY Curry Worley MD [facility] 11-03-2023 Miscellaneous Notes The following approved medication requests have been transmitted electronically. Requested Prescriptions Pending Prescriptions Disp Refills sertraline (ZOLOFT) 50 mg tablet [Pharmacy Med Name: SERTRALINE HCL 50 MG TABLET] 90 tablet 0 Sig: TAKE 1 TABLET BY MOUTH EVERY DAY Curry Worley MD last ordered 10/12/23 # 30 with 3 refills, requesting 90 day for remainder documented in this encounter [facility] 11-03-2023 Telephone encounter Note last ordered 10/12/23 # 30 with 3 refills, requesting 90 day for remainder [facility] 10-12-2023 Instructions Curry Worley MD - 10/12/2023 3:11 PM EDT Pediatric Behavioral Health Providers - [facility] This list does not represent endorsement of any practice by [facility] We understand that your child is struggling and want you to find a helpful, supportive therapist that can guide you and your child to a healthier, happier life. Please know, at any time: If you need urgent mental health support, you can call or text SpotMe on your phone https://[email or web address]/ You may also contact the Crisis Text Line by texting HOME to [address] [facility] Crisis hotline [phone] [employer] [phone] [place] [phone] [place] [phone] [place] [phone] [place] [email or web address] Debbie Gayle [employer] [phone] [place] [phone] [place] [phone] [email or web address]/ [place] [phone] [place] [phone] https://[email or web address]/ [facility] locations [phone] [email or web address]://[email or web address] .[email or web address]/ [facility] [address] [place] [phone] Please contact your insurance company for covered behavioral health services and providers. You may also locate mental health providers in your area by using these websites: https://www.psychologySolus Biosystems.MyCube /us/therapists/ https://findtreatment.gov/ https://effectivechildtherapy.o rg/tips-tools/yjtftk-m-bsbawnlq vnjw-zxxa-lwt/ documented in this encounter [facility] 10-12-2023 Note HNO ID: [id number] Author: CURRY WORLEY MD Service: ? 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 Francy Loaiza LPN Negative for COVID and flu documented in this encounter [facility] 06-17-2023 Note HNO ID: [id number] Author: SIMONE FABIAN APRN.DOOR INSTALLER Service: ? Author Type: Nurse Practitioner Type: Progress Notes Filed: 06/17/2023 12:44 Note Text: Subjective HPI Patient presents to urgent care with chief complaint of fever and cough. Duration of symptoms 18 hrs. Associated symptoms with today's chief complaint are on and off headache, vomiting, muscle aches, fatigue, nonproductive cough, and fever. Patient stated symptoms started abruptly. Patient states they have used fmqp-wuw-zjsalvr medication with some success. Patient states significant [...] mg by SUBDERMAL route. COVID-19 antigen test ([employer] COVID-19 RAPID AT-HOME) kit 1 Each as [...] diagnosis) - INFLUENZ (more content not included)... [facility] 09-26-2022 History of Presen t illness Narrative Per Dr. Adam, Sugar was provided with Powerstep Originals, size 8-8.5Womens, and instructed/educated in its application, wear, and care. All questions were answered, and patient was able to demonstrate competence with the necessary skills to utilize the above equipment. Laura Branch RN Images from the original note were [...] mg by SUBDERMAL route. COVID-19 antigen test ([employer] COVID-19 RAPID AT-HOME) kit 1 Each as [...] future. Sandoval Adam DPM Podiatry [address] [facility] [address] Dept: [phone] Dept AMB ROOMING INTAKE FLOWSHEET DATA Pain [...] feet when younger. documented in this encounter [facility] 09-26-2022 Instructions Sandoval Adam - 09/26/2022 2:36 PM EDT Powerstep Original Full length. Can purchase at [employer] here in [employer], [employer] in [place] or [place]. Also can find in [place] in [facility]. Powersteps can also be purchased online, [...] fits well together documented in this encounter [facility] 08-04-2022 Miscellaneous Notes appt scheduled Codi Arguello RN Message left for parent to return call. Laura Rivera RN Consult placed. Yanira Madrigal PA-C Mother calling, states she had a referral in the past to see podiatry and she never got a chance to go. Now that she is up on her feet all the time she is having pain again, wondering if referral to podiatry can be placed? Codi Arguello RN documented in this encounter [facility] 06-22-2022 History of Presen t illness [...] Alexi Rai MD documented in this encounter [facility] 04-27-2022 Miscellaneous Notes Patient given results and verbalized understanding of instructions given. Kati Chris Please notify of negative influenza and covid test. Continue comfort measures for symptoms as you would for a cold. Any worsening symptoms follow up with PCP or ER. Wen Henriquez APRN.TREE documented in this encounter [facility] 01-10-2022 Miscellaneous Notes Verified results with [...] Wen Henriquez APRN.TREE documented in this encounter [facility] 01-09-2022 History of Presen t illness [...] relief of symptoms. Sick contacts: recently in [place] and on a plane. History of asthma, [...] Brigid Vázquez APRN.TREE documented in this encounter [facility] 09-27-2021 Miscellaneous Notes The following approved medication requests have been transmitted electronically. Pending Prescriptions: Disp Refills albuterol HFA (PROVENTIL HFA, VENTOLIN 8.5 Each 0 HFA) 90 mcg/actuation inhaler [Pharmacy Med Name: ALBUTEROL HFA (PROAIR) INHALER] Sig: INHALE 2 PUFFS BY MOUTH EVERY 6 HOURS NEEDED DIRECTED NASIM: Yes Curry Worley MD documented in this encounter [facility] 09-22-2021 History of Presen t illness Narrative This note was created using Ismoleter. Subjective Sugar Ferreira is a 15 year [...] Rema Gonzalez PA-C documented in this encounter [facility] 03-08-2021 Hospital Discharg e instructions Patient Education 03/08/2021 03:31:37 COVID-19 Prevent the Spread of COVID-19 If You Are Sick (10/15/2019)(CUSTOM) Prevent the Spread of COVID-19 If You Are Sick Accessible version: https://www.cdc.gov/coronavirus /2019-ncov/wn-aad-uda-sick/step s-when-sick.html If you are sick with COVID-19 [...] if you have questions about pets: https://www.cdc.gov/coronavirus /2019ncov/faq.html#REAYU00wjwxx ls Monitor your symptoms. Common symptoms of [...] and need to call 911, notify the animation camera operator that you have or think you [...] clean your hands with an alcohol-based hand hadoop analyst that contains at least 60% alcohol. Clean your hands often. Wash your hands often with soap and water for at least 20 seconds. This is especially important after blowing your nose, coughing, or sneezing; going to the bathroom; and before eating or preparing food. Use hand hadoop analyst if soap and water are not available. Use an alcohol-based hand hadoop analyst with at least 60% alcohol, covering all surfaces of your hands and rubbing them together until they feel dry. Soap and water are the best option, especially if your hands are visibly dirty. \ Avoid touching your eyes, nose, and mouth with unwashed hands. Avoid sharing personal household items. Do not share dishes, drinking glasses, cups, eating utensils, towels, or bedding with other people in your home. Wash these items thoroughly after using them with soap and water or put them in the rn case management. Clean all high-touch surfaces everyday. Clean and [...] or body fluids on them. Use household weed cutter and disinfectants. Clean the area or item [...] in consultation with your healthcare provider and [facility] and local health departments. Local decisions depend [...] Dry your ears with a towel or business department chair after getting wet. Also, use ear plugs [...] as directed by your healthcare provider Seizure [phone] The [employer]. [address] [place] [address]. All rights reserved. This information is not [...] provider may recommend mineral oil or an etea-iui-gchcyix eardrop to use at home to soften [...] ear Headache, neck pain, or stiff neck [phone] [employer]. [address] [place] [address]. All rights reserved. This information is not intended as a substitute for professional medical care. Always follow your healthcare professional's instructions. Follow Up Care 03/08/2021 02:16:33 With:JARAD TERRELL DO Address: [phone] When:2-4 days [facility] 03-08-2021 HCoV 229E RNA LON+non-probe Ql (Nph) [...] and head repositioned with resolution. Report from DENTAL TECHNOLOGIST. Assessment completed. documented in this encounter [facility] Work Phone: 11-05-2020 Hospital Discharg e instructions Jarad Terrell, DO - 11/05/2020 Nasal Surgery - Home [...] 4. Use a saline nasal spray (ex; [place], Curran, Afrin Non-Medicated, or Lokesh-Synephrine Nasal) 2 to [...] our office at any time. OFFICE NUMBER: [phone] documented in this encounter [facility] Work Phone: Discharge summary Note Date/Time December 05, 2022 3:20am [facility] Medical Records Department [address] [place] [address] Emergency Department Summary 12/05/22 MR#: [id number] Acct: [id number] Name: SUGAR FERREIRA Rep #:[id number] : 2005 17 From: Giuseppe Cote DO [...] and at this time she heard a snap and developed severepain in her right lower [...] 0 current occupational status: employed current occupation: [employer] Smoking Status: Former smoker alcohol intake: never [...] Julio Cesar Flannery MD at 2:10 EDT , Lower Extremity CT 12/05/22 02:30 IMPRESSION: [...] problems, contact your Primary Care Provider. Call [facility] ([phone]) or report to the closest Emergency Room. Call 911 if necessary. 12/05/22 0327 <Electronically signed by Giuseppe Cote DO> Cosigner Signature (if applicable): CC: Dr. Curry Worley MD ~ Signed [facility] Work Phone: Discharge summary Author Levon Wadsworth [facility] December 15, 2022 2:33pm Note Date/Time December 15, 2022 2:33 pm [facility] Medical Records Department [address] [place] [address] Instructions for Home/Discharge Instructions 12/15/22 1433 MR#: [id number] Acct: [id number] Name: SUGAR FERREIRA Rep #:[id number] : 2005 17 From: Levon read DO PCP: Dr. Curry Worley MD Status:REG S DC Discharge Instructions Follow Up Care Test Results: Test results from this visit will be discussed in further detail at your follow- up appointment, if applicable. Discharge Plan Admission Primary Reason for Your Visit: Right ankle fixation Attending Provider: Levon Wadsworth Primary Care Provider: Curry Worley Additional Instructions / Restrictions: Follow-up in 2 [...] CC: Dr. Curry Worley MD ~ Signed [facility] Work Phone: Evaluation + Plan note No data available for this section [facility] Evaluation note* Diagnosis Bronchitis- Primary Bronchitis, not specified as acute or chronic [facility] Diagnosis Sore throat- Primary Acute pharyngitis At increased risk of exposure to COVID-19 virus Acute cough [facility] Diagnosis Influenza-like illness- Primary Influenza with other respiratory manifestations Sore throat Acute pharyngitis [facility]* Diagnosis Pain of foot, unspecified laterality- Primary [facility]* Diagnosis Bilateral foot pain- Primary Pain in limb [facility] Diagnosis Onset Date Resolution Status Breakthrough bleeding on Nexplanon acute Routine screening for STI (s exually transmitted infection) acute [facility] Work Phone: Evaluation note* Diagnosis Posterior tibial tendon dysfunction- Primary Other disorders of synovium, tendon, and bursa Pes planus of both feet 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 [facility] Diagnosis Onset Date Resolution Status Breakthrough bleeding on Nexplanon acute Contraceptive management acu te Vaginal discharge acute Vulvar itching [facility] Work Phone: Evaluation note* Diagnosis Bilateral foot pain Pain in limb [facility] noteNo assessment information [facility] Work Phone: Evaluation note* Diagnosis MARIA DE JESUS (generalized anxiety disorder)- Primary Generalized anxiety disorder Adjustment disorder with depressed mood [facility] Diagnosis MARIA DE JESUS (generalized anxiety disorder)- Primary Generalized anxiety disorder [facility]* Diagnosis Rash- Primary Rash and other nonspecific skin eruption [facility] Additional Instructions Please wear your splint as directed for stabilization of your fracture and follow-up with orthopedics to discuss outpatient surgical fixation. If you have any further concerns return to the ER for repeat evaluation. Please make sure while you are at rest or elevating your foot/leg to help [facility]: Hospital Discharge instructions Additional Instructions Follow-up in [address] Wadsworth, call the office to schedule. Maintain splint keep it clean dry and intact until follow-up. Ice and elevation to the right lower extremity Aspirin 81 mg twice daily for DVT prophylaxis starting postoperative day #1. Take medications as prescribed Nonweightbearing operative extremity Implant Used?: Yes [facility] Work Phone: Reason for referral (narrative)* Diagnostic Procedure Only (Routine) - Pending Review Specialty Diagnoses / Procedures Referred By Contmariella t Referred To Contact XR IMAGING Diagnoses Bilateral foot pain Procedures XR FOOT GENERAL 3V AP/LAT/OBL BILATERAL RADEX FOOT COMPLETE MINIMUM 3 VIEWS Sandoval Adam [address] [place] [address] Xr Imaging Referral ID Status Reason Start Date Expiration Date Visits Requested Visits Authorized [id number] Pending Review Auto-Generat ed Referral 08/16/2022 09/15/2023 1 1 [facility] for referral (narrative)* Diagnostic Procedure Only (Routine) - Closed Specialty Diagnoses / Procedures Referred By Contac t Referred To Contact XR IMAGING Diagnoses Bilateral foot pain Procedures XR FOOT GENERAL 3V AP/LAT/OBL BILATERAL RADEX FOOT COMPLETE MINIMUM 3 VIEWS Sandoval Adam [address] [place] [address] [place] [address] Referral ID Status Reason Start Date Expiration Date V isits Requested Visits Authorized [id number] Closed Auto-Generate d Referral 08/16/2022 09/15/2023 1 1 [facility] for visit Narrative* Diagnostic Procedure Only (Routine) - Closed Specialty Diagnoses / Procedures Referred By Contac t Referred To Contact XR IMAGING Diagnoses Bilateral foot pain Procedures XR FOOT GENERAL 3V AP/LAT/OBL BILATERAL RADEX FOOT COMPLETE MINIMUM 3 VIEWS Sandoval Adam [address] [place] [address] [place] [address] Referral ID Status Reason Start Date Expiration Date V isits Requested Visits Authorized [id number] Closed Auto-Generate d Referral 08/16/2022 09/15/2023 1 1 [facility] Advance Directives No Advanced Directives Records FoundDocuments on File Type Date Recorded 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 ACP-Advance Directive ACP-Power of Energy Efficiency Finance Manager Latest Code Status on File Code Status Date Activated Date Inactivated Comments Full Code 11/05/2020 9:25 AM Full Code 12/31/2015 7:17 AM 12/31/2015 6:50 PM Advance Directive Response Recorded Date/ Time Advance Directives No August 24 023 12:09pm Living Will No August 24, 2022 12:09pm Power of Energy Efficiency Finance Manager No August 24 12:09pm Advance Directive Response Recorded Date/ Time Advance Directives No August 24 023 12:09pm Living Will No December 05, 2022 12:48am Power of Energy Efficiency Finance Manager No December 05 12:48am Advance Directive Response Recorded Date/ Time Advance Directives No August 24 023 12:09pm Living Will No December 14, 2022 3:04pm Power of Energy Efficiency Finance Manager No December 14 3:04pm Advance Directive Response Recorded Date/ Time Advance Directives No August 24 023 11:09am Living Will No December 14, 2022 2:04pm Power of Energy Efficiency Finance Manager No December 14 2:04pm Summary Purpose Family [...] unspecified laterality Procedures CONSULT TO PODIATRY OFFICE/OUTPATIENT [facility] 60-74 MINUTES Yanira Madrigal PA-C [address] [place] [address] Referral ID Status Reason Start Date Expiration Date Visits Requested Visits Authorized [id number] Authorized PCP Requested Referral 08/03/2022 08/03/2023 1 [...] surgery) 1003 (Given - Provid er: Levon Nam RN) famotidine (PEPCID) tablet 20 mg (COMPLETED) 20 [...] 2 spray (COMPLETED) 2 spray, Each Nostril, SQUAD LEADER TO [employer].R., On Nkechi 11/05/20 at 0945, For 1 dose, Pre-op (day of surgery) 1007 (Given - Provid er: Lveon Nam RN) sodium chloride flush 0.9 % [...] section and content) DATE CREATED AUTHOR 11/09/2020 [facility] DATE CREATED AUTHOR AUTHOR'S ORGANIZ ATION 03/09/2021 [facility] ([place]) DATE CREATED AUTHOR AUTHOR'S ORGANIZ ATION 06/16/2024 [facility] DATE CREATED AUTHOR AUTHOR'S ORGANIZ ATION 04/01/2025 [facility] Source Comments (unrecognize d section and content) In the event this informatio n is protected by the Federal Confidentiality of Alcohol and Drug Abuse Patient Records regulations: The Federal rules restrict any use of the information to criminally investigate or prosecute any alcohol or drug abuse patient.[facility] the event this information is protected by the Federal Confidentiality of Alcohol and Drug Abuse Patient Records regulations: The Federal rules restrict any use of the information to criminally investigate or prosecute any alcohol or drug abuse patient.[facility] the event this information is protected by the Federal Confidentiality of Alcohol and Drug Abuse Patient Records regulations: The Federal rules restrict any use of the information to criminally investigate or prosecute any alcohol or drug abuse patient.[facility] the event this information is protected by the Federal Confidentiality of Alcohol and Drug Abuse Patient Records regulations: The Federal rules restrict any use of the information to criminally investigate or prosecute any alcohol or drug abuse patient.[facility] the event this information is protected by the Federal Confidentiality of Alcohol and Drug Abuse Patient Records regulations: The Federal rules restrict any use of the information to criminally investigate or prosecute any alcohol or drug abuse patient.[facility] the event this information is protected by the Federal Confidentiality of Alcohol and Drug Abuse Patient Records regulations: The Federal rules restrict any use of the information to criminally investigate or prosecute any alcohol or drug abuse patient.[facility] the event this information is protected by the Federal Confidentiality of Alcohol and Drug Abuse Patient Records regulations: The Federal rules restrict any use of the information to criminally investigate or prosecute any alcohol or drug abuse patient.[facility] the event this information is protected by the Federal Confidentiality of Alcohol and Drug Abuse Patient Records regulations: The Federal rules restrict any use of the information to criminally investigate or prosecute any alcohol or drug abuse patient.[facility] the event this information is protected by the Federal Confidentiality of Alcohol and Drug Abuse Patient Records regulations: The Federal rules restrict any use of the information to criminally investigate or prosecute any alcohol or drug abuse patient.[facility] Hospital[facility] the event this information is protected by the Federal Confidentiality of Alcohol and Drug Abuse Patient Records regulations: The Federal rules restrict any use of the information to criminally investigate or prosecute any alcohol or drug abuse patient.[facility] Hospital[facility] the event this information is protected by the Federal Confidentiality of Alcohol and Drug Abuse Patient Records regulations: The Federal rules restrict any use of the information to criminally investigate or prosecute any alcohol or drug abuse patient.[facility] Hospital[facility] the event this information is protected by the Federal Confidentiality of Alcohol and Drug Abuse Patient Records regulations: The Federal rules restrict any use of the information to criminally investigate or prosecute any alcohol or drug abuse patient.[facility] Hospital[facility] the event this information is protected by the Federal Confidentiality of Alcohol and Drug Abuse Patient Records regulations: The Federal rules restrict any use of the information to criminally investigate or prosecute any alcohol or drug abuse patient.[facility] Hospital[facility] the event this information is protected by the Federal Confidentiality of Alcohol and Drug Abuse Patient Records regulations: The Federal rules restrict any use of the information to criminally investigate or prosecute any alcohol or drug abuse patient.[facility] Hospital[facility] the event this information is protected by the Federal Confidentiality of Alcohol and Drug Abuse Patient Records regulations: The Federal rules restrict any use of the information to criminally investigate or prosecute any alcohol or drug abuse patient.[facility] Hospital[facility] the event this information is protected by the Federal Confidentiality of Alcohol and Drug Abuse Patient Records regulations: The Federal rules restrict any use of the information to criminally investigate or prosecute any alcohol or drug abuse patient.[facility] Reason for Visit (unrecogniz ed section [...] unspecified laterality Procedures CONSULT TO PODIATRY OFFICE/OUTPATIENT [facility] 60-74 MINUTES Yanira Madrigal PA-C [address] [place] [address] Referral ID Status Reason Start Date Expiration Date V isits Requested Visits Authorized [id number] Closed PCP Requested Referral 08/03/2022 08/03/2023 1 1 Reason Comments Anxiety Has been going on fo r a while. Reason Comments Med Change Request Reason Comments Medication Follow-up Reason Comments Rash Possible ringworm on chest, arms, armpits, inner legs x1.5 weeks Reason Onset Date Comments Refill Request 09/13/2024 Care Teams (unrecognized sec tion and content) Cnc Applications Engineer Relationship Specialty Start Date End Date Curry Worley MD [address] [place] [address] PCP - General Pediatrics 08/04/14 Cnc Applications Engineer Relationship Specialty [place] [address] [place] [address] [place] [address] PCP - General Pediatrics 08/04/14 Cnc Applications Engineer Relationship Specialty Start Date End Date Curry Worley MD [address] [place] [address] [place] [address] PCP - General Pediatrics 08/04/14 Cnc Applications Engineer Relationship Specialty Start Date End Date Curry Worley MD [address] [place] [address] [place] [address] PCP - General Pediatrics 08/04/14 Cnc Applications Engineer Relationship Specialty Start Date End Date Curry Worley MD [address] [place] [address] [place] [address] PCP - General Pediatrics 08/04/14 Cnc Applications Engineer Relationship Specialty Start Date End Date Curry Worley MD [address] [place] [address] [place] [address] PCP - General Pediatrics 08/04/14 Team Status: [...] CNM Attending Provider, Referring Pr ovider Active Cnc Applications Engineer Relationship Specialty Start Date End Date Curry Worley MD [address] [place] [address] [place] [address] PCP - General Pediatrics 08/04/14 Team Status: Inactive Member Role Status Dates Dr. Curry Worley MD Primary Care Provider Active Dr. Giuseppe Cote DO Emergency Provider Active Team Status: Inactive Member Role Status Dates Dr. Curry Worley MD Primary Care Provider Active Dr. Levon Wasdworth DO Attending Provider, Referrin g Provider Active Team Status: Inactive Member Role Status Dates Dr. Curry Worley MD Primary Care Provider Active Dr. Giuseppe Cote DO Attending Provider, Emergency Pr ovider Active Team Status: Active Member Role Status Dates Dr. Curry Worley MD Primary Care Provider Active Dr. Levon Wadsworth DO Attending Provider, Referrin g Provider Active Cnc Applications Engineer Relationship Specialty Start Date End Date Curry Worley MD [address] [place] [address] PCP - General Pediatrics 08/04/14 Cnc Applications Engineer Relationship Specialty Start Date End Date Curry Worley MD [address] [place] [address] PCP - General Pediatrics 08/04/14 Team Status: Active Member Role Status Dates Dr. Curry Worley MD Family Provider Active No Primary Care Physician Primary Care Provider Active Team Status: Inactive Member Role Status Dates Dr. Levon Wadsworth DO Attending Provider, Referrin g Provider Active No Primary Care Physician Primary Care Provider Active Cnc Applications Engineer Relationship Specialty Start Date End Date Curry Worley MD [address] [place] [address] PCP - General Pediatrics 08/04/14 Cnc Applications Engineer Relationship Specialty Start Date End Date Curry Worley MD [address] [place] [address] PCP - General Pediatrics 08/04/14 Cnc Applications Engineer Relationship Specialty Start Date End Date Curry Worley MD [address] [place] [address] PCP - General Pediatrics 08/04/14 Goals (unrecognized [...] BE BASED ON THE PRIMARY CLINICAL RECORDS. [facility] provides no warranty or guarantee of the accuracy or completeness of information in this document.
[2025-05-09 05:54] LABS: Internal QC Validated? YES +Cl - CLEAR BKGD; Pregnancy, Urine Negative Negative
[2025-05-09] MEDS: Magnesium 1 GM over 15 mins IV (06:03)
[2025-05-09] MEDS: Lactated Ringers 1,000 ML 15 ML IV (06:03)
--- NOTE | 2025-05-09 07:03 | PRE.ANES_ITS ---
ASA Classification* ASA Classification ASA Classification: 2 Assessment & Plan Anesthesia* Anesthesia Assessment Anesthesia Assessment: Discussed sedation and/or anesthesia options, risks, benefits, and alternatives with patient/parents/legal guardian/POA. Questions invited. The patient/parents/legal guardian/POA seems to understand and agrees to proceed with anesthesia plan. Reviewed the physical assessment, medical history, allergy history and patient home medications list prior to surgery/procedure/anesthetic and documented any changes. Performed airway and anesthesia risk assessments. Anesthesia Type Anesthesia Type: General and Block Anesthesia Focused Assessment* Temperature: 98.7 F Pulse Rate: 86 Blood Pressure: 112/74 Respiratory Rate: 16 Pulse Ox: 100 Airway Assessment Mouth opens: >3 cm Mallampati Score: II Labs Anesthesia Preop lab: CBC WBC, (4.4-11.0) 7.4 K/mm3 10/26/23, 15:00 RBC, (4.2-5.4) 4.40 M/mm3 10/26/23, 15:00 Hgb, (12.0-15.0) 13.3 g/dL 10/26/23, 15:00 Hct, (37-47) 39.8 % 10/26/23, 15:00 Plt Count, (150-450) 211 K/mm3 10/26/23, 15:00 CHEMISTRY Magnesium, (1.5-2.2) 2.2 mg/dL 05/05/25, 16:15 TSH, (0.358-3.74) 1.31 uIU/mL 10/26/23, 15:00 COAG Urine Test Negative Negative Today, 05:30 Tst Clinic Negative 11/05/18, 09:10 Pre-Assessment Diagnosis/Proposed Procedure Planned Operative Procedure(s): (R) Right ankle hardware removal, Calcaneal Osteotomy (slide vs Landrum), Flexor digitorum longus tendon transfer, Right deltoid repair, Arthrodesis of the first tarsometatarsal joint and Capsulotomy of the first metatarsal phalangeal joint. 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 When Was Last Pacemaker Check QUESTION #4 FULL TEXT: You/Your Family Experience fever (hyperthermia) with Anesthesia Last Oral Intake Last Oral intake: Last Oral Intake NPO since 05:30 05/09/25 05:52 Meds taken in AM with sips of No 05/09/25 05:52 water? Meds patient instructed to take am of surgery PONV PONV - hunting sales associate: PONV - hunting sales associate Female Yes 04/29/25 09:36 HX of Motion Sickness No 04/29/25 09:36 HX of N/V After Surgery No 04/29/25 09:36 Non-Smoker No 04/29/25 09:36 Duration of Surgery greater Yes 04/29/25 09:36 than 60 minutes Number of Risk Factors 2 04/29/25 09:36 PONV Score Moderate Risk 04/29/25 09:36 Height & Weight Height & Weight: Anesthesia: Height & Weight Height 5 ft 5 in 05/09/25 05:52 Weight: 54 kg 05/09/25 05:52 Body Mass Index (BMI) 19.8 05/09/25 05:52 Respiratory Assessment Respiratory Assessment - hunting sales associate: Respiratory Tract Infection Hx - hunting sales associate Hx Respiratory Tract Infection No 04/29/25 09:36 STOP Sleep Apnea STOP Sleep Apnea - hunting sales associate: STOP Sleep Apnea - hunting sales associate Hx Hypertension No 04/29/25 09:36 Hx Sleep Apnea No 04/29/25 09:36 CPAP BIPAP Do you snore loudly (louder No 04/29/25 09:36 than talking or can be heard Do you often feel tired/ No 04/29/25 09:36 fatigued/ sleepy during daytime? Has anyone observed you stop No 04/29/25 09:36 breathing during sleep? STOP Results Negative 04/29/25 09:36 QUESTION #5 FULL TEXT : Do you snore loudly (louder than talking or can be heard through closed doors)? Tobacco Use History Tobacco Use History - hunting sales associate: Tobacco Use History - hunting sales associate Tobacco Use Vapor 08/24/22 12:09 Smoking Status Current every day smoker 04/29/25 09:36 Hx Tobacco Use Yes 04/29/25 09:36 Years Smoking Packs Smoked per Day Smoking Cessation Date was within the last 15 years Hx Smoking Cessation Date 10/27/22 03/15/24 13:50 Hx Smoking Cessation Counseling Hematologic Medial History Hematologic Hx - hunting sales associate: Hematologic Medical Hx - clinical documentation manager Hx of Blood Transfusion No 04/29/25 09:36 Hx of Transfusion in last 3 No 04/29/25 09:36 Months Date of Last Transfusion (if within last 3 months) Ever experience any problems No 04/29/25 09:36 with transfusion(s)? Specify any problems Hx of Preganancy in last 3 N/A 04/29/25 09:36 Months Nurse Filling Out Transfusion NBUCHER 04/29/25 09:36 & Questions: Date: 04/29/25 04/29/25 09:36 Time: 09:38 04/29/25 09:36 Patient unable to answer at this time (ie. confused, unrespo /Reproduction History /Reproductive History - hunting sales associate: /Reproductive Hx- hunting sales associate Hx Now No 04/29/25 09:36 Gestational Age (in weeks): EDC: Hx Hx Para Hx Section SAB No 04/29/25 09:36 Does the father of the baby or his family experience fever w Father of the baby Malignant Hypertension history comment Active Medications Active Medications: Current Medications Generic Name Dose Route Start Last Admin Trade Name Freq PRN Reason Stop Dose Admin Acetaminophen 1,000 mg 05/09/25 07:30 05/09/25 06:04 Acetaminophen 500 Mg Tablet PO 05/09/25 07:31 1,000 mg PREOP ONE Administration Gabapentin 600 mg 05/09/25 07:30 05/09/25 06:04 Gabapentin 600 Mg Tablet PO 05/09/25 07:31 600 mg PREOP ONE Administration Cefazolin Sodium 2 gm/ Sodium 110 mls @ 200 mls/hr 05/09/25 07:00 Chloride IV 05/09/25 07:32 INTRAOP ONE Magnesium Sulfate 1 gm/ 102 mls @ 408 mls/hr 05/09/25 07:30 05/09/25 06:03 Dextrose IV 05/09/25 07:44 408 mls/hr PREOP ONE Administration Lactated Ringer's 1,000 mls @ 15 mls/hr 05/09/25 05:45 05/09/25 06:03 IV 15 mls/hr .Q48H TATE Administration Insulin Human Lispro 1 - 6 unit 05/09/25 07:30 Insulin Lispro 100 Unit/Ml Insuln.Pen SC 05/09/25 14:00 Q4H PRN PRN BG>/= 180, SEE PROTOCOL Protocol PFSH Medical History Wears glasses Depression Smoker Anxiety Uses crutches Restless legs Leg cramps History of edema Home Medications ?Medication ?Instructions ?Recorded ?Last Taken ?Type clonazepam 0.5 mg tablet 0.5 mg PO QDAY PRN anxiety 1 05/08/25 History norethindrone 1 mg-ethinyl 1 tab PO DAILY 04/29/2504/22 History estradiol 20 mcg (21)-iron 75 mg (7) tablet (Bantam Fe 1-20 EQ (28)) Allergy/AdvReac Type Severity Reaction Status Date / Time No Known Allergies Allergy Verified 05/09/25 05:51 Family History Mother Thyroid disorder Surgical History Status post ORIF of fracture of ankle (~12/15/22) H/O reduction of closed fracture (~12/07/22) S/P eye surgery S/P nasal surgery S/P tonsillectomy and adenoidectomy Social History household members: family housing: house number of children: 0 current occupational status: employed 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
--- NOTE | 2025-05-09 07:18 | OP.PCM_ITS ---
Operative Report (Standard) Operative Information Date of Procedure: 05/09/25 Pre-Operative Diagnosis: 1. Painful retained hardware, right lower extremity 2. Posterior tibial tendinitis, right lower extremity 3. Pain, right foot Post-Operative Diagnosis: Same as preoperative Surgery/Procedure Performed: Procedure #1: Removal of painful retained hardware, right lower extremity Procedure #2: Kidner procedure, right lower extremity blister rust eradicator: Yes Aircraft Quality Control Inspector: Ladan Croft PGY2 Tasks completed by bankruptcy legal assistant: Closing and Retracting Additional early childhood teacher assistant?: Yes Additional Automobile Mechanic Apprentice #2: Odessa Hendrickson PGY1 Tasks completed by early childhood teacher assistant #2: Closing and Retracting Additional early childhood teacher assistant?: No Type of Anesthesia: General/Regional RN Documented Start/Stop Times: Operation Date: 05/09/25 07:30 Case Time Into Pre-Op 05/09/25 05:38 Anesthesia Start 05/09/25 07:30 Into Room 05/09/25 07:30 Procedure Start 05/09/25 07:55 Procedure End 05/09/25 11:37 Anesthesia End 05/09/25 11:47 Out of Room 05/09/25 11:47 Into Recovery 05/09/25 11:49 Out of Recovery 05/09/25 12:48 Into Phase II Recovery 05/09/25 12:49 Out of Phase II 05/09/25 14:31 Procedure Start Time: 07:55 Procedure Stop Time: 11:37 Select all DRAINS/GRAFTS/IMPLANTS that apply: None Special Medications: Per anesthesia Estimated Blood Loss: 50 mL Fluids Replaced: Per anesthesia Specimen collected: Yes Description of specimen(s) removed: Orthopedic hardware, right lower extremity /tenosynovitis, posterior tibial tendon, right extremity Description of surgery: Indications For Operation: Ms. Mathews is a 19-year-old who was admitted to [facility] for painful retained hardware to the right lower extremity. Patient is well-known to my practice and has been planning for the past 6 months hardware removal and Kidner procedure due to her painful posterior tibial tendon. Patient soham juarez sustained a pilon fracture approximately 2-1/2 years ago and had a delta frame application with ORIF of the pilon fracture by orthopedics. Since then she has been dealing with painful hardware that has been prominent to the medial aspect of the ankle causing majority of her pain. Patient did exhaust all conservative treatment and has been using a Philip brace from her previous provider with some relief to the posterior tibial tendon however she has continued to have pain over the past 3 to 6 months electing to move forward with above procedure. Patient did have surgical consultation with all risk and benefits discussed with patient in great detail. She was understanding of all risk and benefits. Chart review and consent was signed at this time. Due to continued pain to the right lower extremity. We deemed necessary to move forward with above procedure to help make the patient feel comfortable walking and decrease her pain to the right lower extremity. The nature of the problem, anticipated procedures, postop recovery/convalences and risk/complications include but not limited to infection, wound healing complications, digital amputation, hypertrophic scarring, numbness, tingling, chronic pain, CRPS, over and under correction, recurrence of deformity, DVT and or PE and the need for further surgery have been discussed in great detail with the patient. All questions have been answered to the patient's satisfaction. There are no guarantees given as to the outcome of the procedure. Description of Procedure: Under mild sedation, the patient was brought into the operating room and placed on the operating table in supine position. Once the patient was under general anesthesia with laryngeal mask airway, the right lower extremity was blocked with a popliteal and saphenous block by anesthesia in the PACU prior to the procedure. Please see anesthesia notes for further detail. Next, a well-padded thigh tourniquet was applied to the right lower extremity. Next, the right lower extremity was prepped and draped in normal aseptic manner. Next, a timeout was then undertaken verifying the correct patient, extremity, visibility of preoperative markings, availability of the equipment. Next, attention was directed to the right lower extremity. Using a 4 Esmarch, right lower extremity was exsanguinated and elevated to 60 degrees for 1 minute and a tourniquet was inflated to 275 mmHg. Procedure #1: Removal of painful retained hardware, right lower extremity (CPT code: 78441) Next, attention was directed to the right lower extremity. There was evidence of a previous incisions to the medial tibia and anterior lateral tibia from the previous open reduction internal fixation. The 2 incisions were marked out with skin marker. The medial incision was approached first using a #15 blade. Full- thickness incision down to subcutaneous tissue was performed. Continued blunt dissection with Metzenbaum scissors was used to advance through the subcutaneous tissue down to bone with care to identify the saphenous nerve and vein that were retracted for protection. Next, using a periosteal elevator the scar tissue was freed up around all prominent hardware to the medial tibia. Using a T10 lease purchase driver and handle the screws were backed out and passed the back table. One of the screws prior to removing it was stripped and using a 4?0 egg edgardo on power and [place] drip the head of the screw was removed sharply. After the head was soft the plate was lifted off the tibia. A 1 size up trephine was used to core out the remaining screw without incident. Using a hand rasp all bony prominences of the medial tibia were made flat. The area was flushed with copious normal saline. Demineralized bone matrix was filled in all the screw holes and trephine hole. The area was flushed with copious normal saline and a moist Ray- Veronika was placed in the incision. Next, attention was directed to the anterior lateral incision, using a #15 blade a full-thickness incision down to subcutaneous tissue was performed. Continue blunt dissection was carried down to the level of the fascia. Care was used to identify any neurovascular structure with no evidence of the superficial peroneal nerve in the incision. Blunt dissection was carried down between the extensor hallucis longus and extensor digitorum longus muscle belly and tendons, care taken to retract the mu scles and tendons. Using a freer elevator the scar tissue was removed off the top of the anterior lateral plate. All screws were backed out with the T10 handle and lease purchase driver and the plate was lifted and passed the back table to be sent off to pathology along with the medial tibial plate and screws. The bony prominences under the screws were made flat with hand rasp, the screw holes were filled with demineralized bone matrix. The area was flushed with copious amounts of normal saline. Next attention was directed to the lateral incision, the fascia layer was reapproximated and closed using 2-0 Vicryl and running locking suture technique. The subcutaneous layer was reapproximated and closed with 2-0 Vicryl and running suture technique. Next, attention was directed to the medial incision and the deep layer was reapproximated closed with 2-0 Vicryl in running locking suture technique. Subcutaneous layer was reapproximated and closed using 2-0 Vicryl and running suture technique. The right thigh tourniquet was deflated at 2 hours and reperfusion was noted instantly. Procedure #2: Kidner procedure, right lower extremity (CPT code: 43977) Next, attention was directed to the level of the posterior tibial tendon. Using a Grace elevator, the incision was marked out using C-arm fluoroscopy. Using a sterile skin marker the incision was traced over the pathway of the posterior tibial tendon behind the medial malleolus to the insertion at the navicular tuberosity. Next using a #15 blade a full-thickness incision down to subcutaneous tissue was performed. Continued blunt dissection was carried down to level of fascia using Metzenbaum scissors. Using the Grace elevator, a pocket was made in the sheath of the posterior tibial tendon back and around the medial malleolus and used as a guide to violate the sheath with a #15 blade. Evaluation of the posterior tibial tendon showed some tendinosis that was cut out with a #15 blade and pick and passed the back table to be sent off for pathology. Next, attention was directed to level of navicular and the navicular tuberosity was removed using a sagittal saw and #111 blade without incident. The osteotomy was performed under C arm fluoroscopy guidance. Next, the area was flushed with copious normal saline. After 35-40 minutes the thigh tourniquet was reinflated at 275 mmHg. The posterior tibial tendon was re-tubularized using 3-0 PDS over and over stitch. Next using the knotless fiber tack provided by [employer] with the rep in the room the fiber tack was inserted to the level of the navicular per the manufactures recommendation. The insertion of the posterior tibial tendon was advanced forward and secured in place using the knotless system. They the free 2?0 fiber wire was used to secure the tendon and over and over stitch. After the procedure was completed the foot sat in a dorsiflexion and inverted position against gravity. The incision at the level of the posterior tibial tendon was flushed with copious amounts of normal saline. The deep layer and posterior tibial tendon sheath was reapproximated closed with 3-0 Vicryl in running locking suture technique. The subcutaneous layer was reapproximated and closed with 3-0 Vicryl and running suture technique. At this time the thigh tourniquet to the right lower extremity was deflated and reperfusion was noted instantly to the right lower extremity. All bleeders were cauterized and ligated as necessary. The tibial skin incisions on the medial and anterior lateral side were closed with regan. The skin at the posterior tibial tendon was reapproximated closed using 3-0 nylon in horizontal mattress suture technique. The right lower extremity was white clean and patted dry. Betadine soaked Adaptic was applied to all incisions followed by dry sterile dressing and a double or Asif AO splint at 90 degrees with slight inversion was a applied to the right lower extremity. The patient tolerated the procedure and anesthesia well and apparent satisfactory condition and was transported to the PACU for further monitoring prior to discharge home. Vital signs stable and vascular status intact to all digits bilateral. Post Operative Plan: Weightbearing: Nonweightbearing to right lower extremity. Full weightbearing left lower extremity. Antibiotics: 2 g Ancef through the IV DVT Prophylaxis: Lovenox Paraad: None Dressing: Betadine soaked Adaptic, dry sterile dressing double layer Asif AO splints with slight inversion at 90 degrees, right lower extremity X-Rays: Post-operative films taken on the operating room. Pain Medication: Hydromorphone 4 mg, Narcan, Tylenol 650, cyclobenzaprine 10 mg. Follow-up: Patient will follow-up at her already scheduled postop appointment time. Surgical Findings: 1. Evidence of healed pilon fracture to the right lower extremity tibia. 2. Evidence of tenosynovitis/tendinosis that was removed from the posterior tibial tendon and sent off for pathology. Complications Complications: No Admit VTE Documentation VTE Present on Admission: No VTE Mechan Device Prophylaxis: SCD's VTE Pharm Prophylaxis ordered?: Yes
[2025-05-09] MEDS: Midazolam 2 MG/2 ML Syringe 4 MG IV (07:20)
[2025-05-09] MEDS: Lidocaine 1% (20 ml mdv) 20 ML Vial (07:27)
--- NOTE | 2025-05-09 07:30 | FORE_PTH ---
PATIENT: TARIK FERREIRA LOC: [facility] [place] U#:[id number] AGE/SX: 19/F ROOM: RE05/09/[address]: Dr. Chano Bhatt DPM : 2005 BED: DIS: 05/09/2025 SPEC #: [id number] RECD: 05/09/25 13:03 STATUS: MARIETTA REDanette #: [id number] HIRAM: 05/09/25 07:[address]: Chano Bhatt DEPT: SURGICAL PATHOLOGY RECD BY: Arturo Ruiz ENTERED: 05/09/25 14:24 SP TYPE: FOREIGN B OT DR: No Primary Care Phys Tissues: A - FOREIGN BODY B - Tendon sheath, NOS Procedures: Surgery Specimen Level I Surgery Specimen Level III HEADER OPERATION: RACHELLE, right ankle hardware removalTomy PRE-OP DIAGNOSIS: Right lower extremity pain TISSUE SUBMITTED: A- Right ankle hardware, B- Tenosynovitis, right ankle MICROSCOPIC DIAGNOSIS A. Right ankle, hardware, explant: - Screws and brackets consistent with orthopedic hardware/director of graduate medical education (gross examination only). B. Right ankle, soft tissue, tenosynovitis, excision: - Dense collagenous tissue with reactive and degenerative changes. MICROSCOPIC DESCRIPTION Slides are reviewed. GROSS DESCRIPTION A. Received fresh labeled the patient's name and date of . Designated as right ankle hardware are 13 diaz to gold metallic screws, ranging 2.3 cm to 3.8 cm in length by an average diameter of 0.3 cm. Definitive inscriptions are not identified. Also within the container are 2 diaz metallic brackets as follows: 11.5 x 1.1 x 0.5 cm with multiple circular and ovoid holes and inscribed with 114 mm10.1 x 3.9 x 0.3 cm L shaped bracket with numerous circular and ovoid holes and devoid of identifiable inscriptions. No sections are submitted. The specimen is for gross examination only. B. Received in formalin labeled with the patient's name and date of . Designated as tenosynovitis, right ankle is a 1.8 x 0.6 x 0.3 cm franco-white to pink, shaggy tissue fragment. Entirely submitted in 1 cassette. IN 05/09/2025 CPT:[id number]
--- NOTE | 2025-05-09 07:30 | RAD_ITS ---
PROCEDURE: ANKLE 2 VIEWS 05/09/2025 REASON FOR EXAM: RT ANKLE HARDWARE REMOVAL TECHNIQUE: Procedure Code: RADANK2 Modality: DX Procedure: ANKLE 2 VIEWS Fluoroscopy time: 1.7 seconds Total images: 6 COMPARISON: March 15, 2024 FINDINGS: Fluoroscopic spot images over the ankle reveal plate and screw fixation involving the distal tibia. These have been removed on subsequent images. Alignment is anatomic.. RAD/Ankle 2 Views IMPRESSION: Fluoroscopic localization and guidance. Correlate with procedural note. Reading Location: [id number]
[2025-05-09] MEDS: Cefazolin 1 GM/5 ML Vial 2 GM IV (07:35)
[2025-05-09] MEDS: Lidocaine 1% (5 ml sdv) 5 ML Vial IV (07:38)
[2025-05-09] MEDS: Lactated Ringers 2,000 ML 2000 ML IV (09:35)
[2025-05-09] MEDS: fentaNYL 100 MCG/2 ML Ampul 300 MCG IV (11:02)
--- NOTE | 2025-05-09 11:55 | PCM.POST.ANE ---
Anesthesia: Postop Eval I Current Vital Signs Temperature: 98.5 F Pulse Rate: 153 Blood Pressure: 131/70 Respiratory Rate: 24 Pulse Ox: 99 Oxygen Delivery Method: Room Air Assessment Airway patent: Yes Spontaneous unlabored respirations: Yes Mental status: Awake nausea: No Vomiting: No Anesthesia Complication: No Fluid Hydration Crystalloid volume administer (ml): 1,200 Total IV fluid infused: 1,200 Progress Note Anesthesia document: Postop Eval 1 completed: Yes
[2025-05-09] MEDS: Ketorolac 30 MG/ML Syringe IV (12:44)
--- NOTE | 2025-05-09 13:56 | POSTOPAN2_ITS ---
Anesthesia Postop Eval I Sum Postop Eval Completion status Anesthesia document: Postop Eval 1 completed: Yes Anesthesia Postop Eval I Summary Anesthesia Postop Eval I Summary: Anesthesia Postop Eval I: Assessment Summary Airway patent Yes 05/09/25 11:56 [email or web address] Spontaneous unlabored Yes 05/09/25 11:56 [email or web address] [email or web address] respirations Mental status Awake 05/09/25 11:56 [email or web address] nausea No 05/09/25 11:56 [email or web address] [email or web address] Vomiting No 05/09/25 11:56 [email or web address] [email or web address] Anesthesia Postop Eval I: Fluid Summary Crystalloid volume administer 1,200 05/09/25 11:56 [email or web address] (ml) Colloids volume administered ( ml) Blood Product volume administered (ml) Total IV fluid infused 1,200 05/09/25 11:56 [email or web address] Anesthesia Postop Eval I: Summary Notes Anesthesia Complication No 05/09/25 11:56 [email or web address] Anesthesia Complication Comment: Post-operative progress note Anesthesia: Postop Eval II Evaluation Mental status: Awake Pain Level: 0 nausea: No Vomiting: No
--- NOTE | 2025-05-09 13:56 | PCM.POSTANE2 ---
Anesthesia Postop Eval I Sum Postop Eval Completion status Anesthesia document: Postop Eval 1 completed: Yes Anesthesia Postop Eval I Summary Anesthesia Postop Eval I Summary: Anesthesia Postop Eval I: Assessment Summary Airway patent Yes 05/09/25 11:56 [email or web address] Spontaneous unlabored Yes 05/09/25 11:56 [email or web address] respirations Mental status Awake 05/09/25 11:56 [email or web address] nausea No 05/09/25 11:56 [email or web address] Vomiting No 05/09/25 11:56 [email or web address] Anesthesia Postop Eval I: Fluid Summary Crystalloid volume administer 1,200 05/09/25 11:56 [email or web address] (ml) Colloids volume administered ( ml) Blood Product volume administered (ml) Total IV fluid infused 1,200 05/09/25 11:56 [email or web address] Anesthesia Postop Eval I: Summary Notes Anesthesia Complication No 05/09/25 11:56 [email or web address] Anesthesia Complication Comment: Post-operative progress note Anesthesia: Postop Eval II Evaluation Mental status: Awake Pain Level: 0 nausea: No Vomiting: No
== END 2025-05-09 14:31 | disposition home or self-care (01) ==
LOC: SDC 05:26 → AC 05:26
PROVIDERS: Anesthesiology; Referring Provider Podiatrist Foot & Ankle Surgery; Visit Provider Podiatrist Foot & Ankle Surgery
PROC: (CPT 20680; principal; 2025-05-09 07:15)
DX: T84.84XA Pain due to internal orthopedic prosthetic devices, implants and grafts, initial encounter (principal); M76.821 Posterior tibial tendinitis, right leg; S82.871D Displaced pilon fracture of right tibia, subsequent encounter for closed fracture with routine healing; Z01.818 Encounter for other preprocedural examination; M25.571 Pain in right ankle and joints of right foot; G89.29 Other chronic pain
CPT/HCPCS: 20680; 28238; 01480; 36415; 73600; 76000; 81025; 82962; 83735; 87077; 87081; 88300; 88304; C1713; J2405; J3475